=== PATIENT | female | born 1975 | race Two or more races ===

== ENCOUNTER 2024-12-25 05:02 | Inpatient (IN) | payer OTHER ==
[~2024-12-25] VITALS: Ht 157.5 cm; Wt 76.0 kg
--- NOTE | 2024-12-25 07:02 | ED.PDOC ---
History of Present Illness HPI Comments 49-year-old female presents to the ER with the chief complaint of abdominal pain. Patient reports on sleeping at 0000 last night which she had a sudden onset of severe constant epigastric pain which radiates to the back associated with nausea and vomiting. Denies any other symptoms at this time. Denies ch ills, fever, /D, SOB, CP. No other associated symptoms, modifiers, recent injuries or sick contacts present at this time. Chief Complaint: Abdominal Pain Time Seen by MD: 07:00 Reviewed Notes: Nurses Notes, Medications, Allergies Allergies: Coded Allergies: NO KNOWN ALLERGIES (Unverified , 12/25/24) Information Source: Patient Mode of Arrival: Ambulatory Severity: Moderate Timing: Hours Duration: Since onset, Hours Prehospital treatment: None Past Medical History PAST MEDICAL HISTORY: Denies Surgical History: Denies all surgeries VOCATIONAL PSYCHOLOGIST History: No Pertinent VOCATIONAL PSYCHOLOGIST History Family History Family History: Reviewed,noncontributory to illness, Unknown Social History Smoker: Non-Smoker Alcohol: Denies ETOH Use Drugs: Denies Drug Use Lives In: Home Constitutional: denies: chills, diaphoresis, fatigue, fever, malaise, sweats, weakness, others EENTM: denies: blurred vision, double vision, ear bleeding, ear discharge, ear drainage, ear pain, ear ringing, eye pain, eye redness, hearing loss, mouth pain, mouth swelling, nasal discharge, nose bleeding, nose congestion, nose pain, photophobia, tearing, throat pain, throat swelling, voice changes, others Respiratory: denies: cough, hemoptysis, orthopnea, SOB at rest, shortness of breath, SOB with excertion, stridor, wheezing, others Cardiovascular: denies: chest pain, dizzy spells, diaphoresis, Dyspnea on exertion, edema, irregular heart beat, left arm pain, lightheadedness, palpitations, PND, syncope, others Gastrointestinal: reports: abdominal pain (Epigastric), nausea, vomiting; denies: abdomen distended, blood streaked bowels, constipated, diarrhea, dysphagia, difficulty swallowing, hematemesis, melena, poor appetite, poor fluid intake, rectal bleeding, rectal pain, others Genitourinary: denies: abnormal vagina bleeding, burning, dyspareunia, dysuria, flank pain, frequency, hematuria, incontinence, pain, , vagina discharge, urgency, others Neurological: denies: dizziness, fainting, headache, left sided numbness, left sided weakness, numbness, paresthesia, pre-existing deficit, right sided numbness, right sided weakness, seizure, speech problems, tingling, tremors, weakness, others Musculoskeletal: denies: back pain, gout, joint pain, joint swelling, muscle pain, muscle stiffness, neck pain, others Integumetry: denies: bruises, change in color, change in hair/nails, dryness, laceration, lesions, lumps, rash, wounds, others Allergic/Immunocompromised: denies: Difficulty Healing, Frequent Infections, Hives, Itching, others Hematologic/Lymphatic: denies: anemia, blood clots, easy bleeding, easy bru ising, swollen glands, others Endocrine: denies: excessive hunger, excessive sweating, excessive thirst, e xcessive urination, flushing, intolerance to cold, intolerance to heat, unexplained weight gain, unexplained weight loss, others Psychiatric: denies: anxiety, bipolar disorder, depression, hopeless, panic disorder, schizophrenia, sleepless, suicidal, others All Other Systems: Reviewed and Negative Physical Exam General Appearance: Moderate Distress, Normal HEENT: Normal ENT Inspection, Pharynx Normal, TMs Normal Neck: Full Range of Motion, Non-Tender, Normal, Normal Inspection Respiratory: Chest Non-Tender, Lungs Clear, No Accessory Muscle Use, No Respiratory Distress, Normal Breath Sounds Cardiovascular: No Edema, No JVD, No Murmur, No Gallop, Normal Peripheral Pulses, Regular Rate/Rhythm Breast Exam: Deferred Gastrointestinal: No Organomegaly, Non Tender, No Pulsatile Mass, Normal Bowel Sounds, Soft Genitalia: Deferred Pelvic: Deferred Rectal: Deferred Extremities: No calf tenderness, Normal capillary refill, Normal inspection, Normal range of motion, Non-tender, No pedal edema Musculoskeletal : Apperance: Normal Neurologic: Alert, clinical pharmacist II-XII nml as Tested, No Motor Deficits, Normal Affect, Normal Mood, No Sensory Deficits Cerebellar Function: Normal Reflexes: Normal Skin: Dry, Normal Color, Warm Peripheral Pulses: 3+ Radial (R), 3+ Radial (L) Lymphatic: No Adenopathy Was a procedure done? Was a procedure done?: No Differential Dx Considerations may include: Anemia Electrolyte imbalance X-Ray, Labs, Meds, VS Vital Signs Date Time Temp Pulse Resp B/P (MAP) Pulse Ox O2 Delivery O2 Flow Rate FiO2 12/25/24 06:38 Room Air* 0 21 12/25/24 06:36 98.3 67 16 157/85 (109) 97 98.3 12/25/24 05:06 97.4 67 16 163/102 96 97.4 Lab Test 12/25/24 07:00 12/25/24 06:43 Range/Units White Blood Count 15.1 H 4.4-10.8 10^3/uL Red Blood Count 5.61 H 4.0-5.20 10^6/uL Hemoglobin 17.6 H 12.2-16.2 g/dL Hematocrit 52.4 H 36.0-46.0 % Mean Corpuscular Volume 93.5 80.0-100.0 fL Mean Corpuscular Hemoglobin 31.4 28.0-32.0 pg Mean Corpuscular Hemoglobin Concent 33.6 32.0-36.0 g/dL Red Cell Distribution Width 13.4 11.8-14.3 % Platelet Count 380 140-450 10^3/uL Mean Platelet Volume 6.9 6.9-10.8 fL Neutrophils (%) (Auto) 87.3 H 37.0-80.0 % Lymphocytes (%) (Auto) 8.9 L 10.0-50.0 % Monocytes (%) (Auto) 3.6 0.0-12.0 % Eosinophils (%) (Auto) 0.0 0.0-7.0 % Basophils (%) (Auto) 0.2 0.0-2.0 % Neutrophils # (Auto) 13.1 H 1.6-8.6 10 ^3/uL Lymphocytes # (Auto) 1.3 0.4-5.4 10 ^3/uL Monocytes # (Auto) 0.5 0-1.3 10 ^3/uL Eosinophils # (Auto) 0 0-0.8 10 ^3/uL Basophils # (Auto) 0 0-0.2 10 ^3/uL Nucleated Red Blood Cells 0.1 % Sodium Level 140 136-145 mmol/L Potassium Level 4.3 3.5-5.1 mmol/L Chloride Level 106 98-107 mmol/L Carbon Dioxide Level 23 20-31 mmol/L Anion Gap 11 5-15 Blood Urea Nitrogen 5 L 9-23 mg/dL Creatinine 0.96 0.550-1.02 mg/dL Glomerular Filtration Rate Calc 73 >90 mL/min BUN/Creatinine Ratio 5.2 L 10.0-20.0 Serum Glucose 123 H 74-106 mg/dL Calcium Level 10.3 8.7-10.4 mg/dL Urine Color Pending Urine Clarity Pending Urine pH Pending Urine Specific [place] Pending Urine Protein Pending Urine Ketones Pending Urine Blood Pending Urine Nitrite Pending Urine Bilirubin Pending Urine Urobilinogen Pending Urine Leukocyte Esterase Pending Urine RBC Pending Urine Microscopic WBC Pending Urine Squamous Epithelial Cells Pending Urine Bacteria Pending Urine Glucose Pending Patient alert. Came in because of abdominal discomfort. Vitals stable. Answering questions. WBC elevated. Abdomen is soft nontender. Establish intravenous access. Was given fluids. Possible sepsis. Blood culture. Lactic acid level. Explained to the patient. Continue monitoring. Time of 1ST Reevaluation: 07:30 Reevaluation 1ST: Unchanged Patient Education/Counseling: Diagnosis, Treatment, Prognosis Family Education/Counseling: No Family Present SEPSIS Sepsis Screen Date sepsis recognized/suspect: Dec 25, 2024 Time Sepsis recognized/suspect: 050 Recent Procedure: No On Antibiotic Therapy: No Respiratory Rate >20: No Heart Rate >90: No Temp<36 C (96.8 F) or >38.3 C: No SBP <90 or MAP <65 mmHG: No New Acute Mental Status Change: No Is the patient on CPAP, BIPAP,: No Physician Orders Urinalysis (12/25/24 06:43) Vital Signs Date Time Temp Pulse Resp B/P (MAP) Pulse Ox O2 Delivery O2 Flow Rate FiO2 12/25/24 06:38 Room Air* 0 21 12/25/24 06:36 98.3 67 16 157/85 (109) 97 98.3 12/25/24 05:06 97.4 67 16 163/102 96 97.4 Laboratory Tests Test 12/25/24 07:00 White Blood Count 15.1 10^3/uL (4.4-10.8) H Departure 1 Departure Time of Disposition: 07:42 Impression: Primary Impression: Sepsis, unspecified organism Qualified Codes: A41.9 - Sepsis, unspecified organism Disposition: ADMITTED INPATIENT Admit to: Med Surg Condition: Guarded Critical Care Note Critical Care Time?: Yes (90 min-critical care time only) Stability Stability form required: No Heart Score Heart Score: Heart Score Response (Comments) Value History N/A 0 EKG N/A 0 Age N/A 0 Risk Factors N/A 0 Troponin N/A 0 Total 0 I personally scribed for REJI MATHEW MD ([email or web address]) on 12/25/24 at 07:02. Electronically submitted by Kayode Hilario ([email or web address]). REJI MATHEW MD Dec 25, 2024 07:02
[2024-12-25 07:24] LABS: Hematocrit 52.4 % (36.0-46.0); Hemoglobin 17.6 g/dL (12.2-16.2); Mean Corpuscular Hemoglobin 31.4 pg (28.0-32.0); Mean Corpuscular Volume 93.5 fL (80.0-100.0); Nucleated Red Blood Cells % 0.1 %
[2024-12-25 07:30] LABS: Chloride 106 mmol/L (98-107); Potassium 4.3 mmol/L (3.5-5.1); Sodium 140 mmol/L (136-145)
[2024-12-25 07:31] LABS: Anion Gap 11 (5-15); Carbon Dioxide 23 mmol/L (20-31)
[2024-12-25 07:32] LABS: Calcium 10.3 mg/dL (8.7-10.4)
[2024-12-25 07:37] LABS: BUN/Creatinine Ratio 5.2 (10.0-20.0); Blood Urea Nitrogen 5 mg/dL (9-23); Glucose 123 mg/dL (74-106)
[2024-12-25] MEDS: SODIUM CHLORIDE 0.9% 1,000 ML IV ONE ×2 (07:45→08:30)
[2024-12-25 07:52] LABS: Urine Amorphous Crystal MOD /hpf (None Seen); Urine Protein, UAD 1+ (Negative)
--- NOTE | 2024-12-25 08:16 | DVH ---
Exam: CT CT AB PEL WO CON-NO ORAL OR IV History: colitis Comparison Study: None Technique: Multidetector spiral CT of the abdomen and pelvis was performed from lung bases to pubic s ymphysis. Imaging was performed without intravenous contrast. Coronal and sagittal multiplanar reform ats were obtained from the axial data set by the technologist. Radiation Dose : 1. Abdomen/Pelvis: CTDIvol 9.8 mGy, DLP 37.95 mGy*cm. Findings: Evaluation of vasculature and solid organs is limited due to lack of intravenous contrast use. Lung Bases: Lung bases are clear. Visualized portions of the heart and pericardium are unremarkable. Liver: The liver is normal in size. No focal lesions. Diffusely hypoattenuating liver parenchyma con sistent with hepatic steatosis. Gallbladder and Biliary Tree: Gallstone noted. No intrahepatic or extrahepatic biliary ductal dilata tion. Spleen: Unremarkable Pancreas: The pancreas is grossly unremarkable. Adrenal Glands: Unremarkable Kidneys: There is a 6 mm nonobstructive calculus in the lower pole of the right kidney. Punctate non obstructive left renal calculus. GI tract: The stomach is grossly normal in appearance. No evidence of small bowel wall thickening or abnormal dilatation to suggest bowel obstruction. The colon is unremarkable. The appendix is not visu alized, however no inflammatory changes in the right lower quadrant to suggest acute appendicitis. Peritoneum/mesentery/retroperitoneum. No evidence of free intraperitoneal air. No ascites. No evidenc e of suspicious lymphadenopathy. Abdominal Wall: Unremarkable. Vasculature: The visualized abdominal aorta is normal in size and caliber. Evaluation of abdominal a nd pelvic vessels is limited due to lack of intravenous contrast. Urinary Bladder: Grossly unremarkable for degree of distention. Pelvic Organs: Intrauterine device is appropriately positioned Musculoskeletal: No fracture. There is sclerosis in the right T10 pedicle of uncertain etiology. IMPRESSION: 1. No acute abdominal or pelvic findings. 2. Nonobstructive bilateral renal calculi. 3. Cholelithiasis. 4. Hepatic steatosis. 5. Sclerosis in the right T10 pedicle. Etiology is uncertain. This is not dense enough to be consid ered a bone island. A nuclear medicine bone scan may be obtained for further evaluation.
[2024-12-25] MEDS: PIPERACILLIN-TAZOB 3.375GM 100 ML IV ONE ×2 (08:31→10:02)
[2024-12-25] MEDS: ONDANSETRON HCL 4 MG/2 ML VIAL IV ONE (09:13)
[2024-12-25] MEDS: HYDROmorphone HCL 2 MG/ML VL/or syr IV ONE (09:13)
--- NOTE | 2024-12-25 09:41 | DVHHP2 ---
History of Present Illness Reason for Visit: Abdominal pain with nausea and vomiting History of Present Illness Izabel Matthews is a 49-year-old female with past medical history of epilepsy who presents to the ED with abdominal pain with nausea and vomiting, with complaints radiating to the back, reports that the pain is 8/10 dull and constant. She reports that she vomited multiple times with minimal relief, food contents and now yellow in color. Patient reports that she vomited over 10 times. Patient's [id number] Carmen at the bedside. Patient denies any recent trauma or injury, recent sick contacts, recent travels, recent ingestion of spoiled food, chest pain, shortness of breath, fever, chills, lightheadedness, weakness, dizziness, diarrhea, urinary symptoms. Patient will be admitted for rule out sepsis and pain management with IV pain medications. 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) Past Medical History Nephrolithiasis Past Surgical History: Other (D&C and lithotripsy ) Family History: Cancer, Other (Mom with diabetes and liver cancer.) Smoke: No ALCOHOL: none Drugs: None Lives: with Family Domestic Violence: Neg Review of Systems Gastrointestinal: Nausea, Vomiting, Abdominal Pain Allergies: Coded Allergies: NO KNOWN ALLERGIES (Unverified , 12/25/24) Exam Vital Signs Vital Signs Date Time Temp Pulse Resp B/P (MAP) Pulse Ox O2 Delivery O2 Flow Rate FiO2 12/25/24 09:13 61 16 156/74 12/25/24 08:26 98.0 98 98.0 12/25/24 06:38 Room Air* 0 21 General Appearance: Alert, Oriented X3, Cooperative, No acute distress HEENT: Atraumatic, PERRLA, EOMI, Mucous membr. moist/pink Respiratory: Clear to auscultation, Normal air movement Cardiovascular: Regular rate, Normal S1, Normal S2, No murmurs Abdominal: Normal bowel sounds, Soft Extremities: No clubbing, No cyanosis, Normal pulses Skin: No significant lesion Neuro: Normal gait, Normal speech, Strength at 5/5 X4 ext, Normal tone, Sensation intact Psych/Mental Status: Mental status NL, Mood NL Labs/Xrays Labs Test 12/25/24 07:00 12/25/24 06:43 Range/Units White Blood Count 15.1 H 4.4-10.8 10^3/uL Red Blood Count 5.61 H 4.0-5.20 10^6/uL Hemoglobin 17.6 H 12.2-16.2 g/dL Hematocrit 52.4 H 36.0-46.0 % Mean Corpuscular Volume 93.5 80.0-100.0 fL Mean Corpuscular Hemoglobin 31.4 28.0-32.0 pg Mean Corpuscular Hemoglobin Concent 33.6 32.0-36.0 g/dL Red Cell Distribution Width 13.4 11.8-14.3 % Platelet Count 380 140-450 10^3/uL Mean Platelet Volume 6.9 6.9-10.8 fL Neutrophils (%) (Auto) 87.3 H 37.0-80.0 % Lymphocytes (%) (Auto) 8.9 L 10.0-50.0 % Monocytes (%) (Auto) 3.6 0.0-12.0 % Eosinophils (%) (Auto) 0.0 0.0-7.0 % Basophils (%) (Auto) 0.2 0.0-2.0 % Neutrophils # (Auto) 13.1 H 1.6-8.6 10 ^3/uL Lymphocytes # (Auto) 1.3 0.4-5.4 10 ^3/uL Monocytes # (Auto) 0.5 0-1.3 10 ^3/uL Eosinophils # (Auto) 0 0-0.8 10 ^3/uL Basophils # (Auto) 0 0-0.2 10 ^3/uL Nucleated Red Blood Cells 0.1 % Sodium Level 140 136-145 mmol/L Potassium Level 4.3 3.5-5.1 mmol/L Chloride Level 106 98-107 mmol/L Carbon Dioxide Level 23 20-31 mmol/L Anion Gap 11 5-15 Blood Urea Nitrogen 5 L 9-23 mg/dL Creatinine 0.96 0.550-1.02 mg/dL Glomerular Filtration Rate Calc 73 >90 mL/min BUN/Creatinine Ratio 5.2 L 10.0-20.0 Serum Glucose 123 H 74-106 mg/dL Calcium Level 10.3 8.7-10.4 mg/dL Urine Color Light-brown Yellow Urine Clarity Ex.turbid Clear Urine pH 8.0 5.0-9.0 Urine Specific [place] 1.020 1.001-1.035 Urine Protein 1+ H Negative Urine Ketones Negative Negative Urine Blood 1+ H Negative /uL Urine Nitrite Negative Negative Urine Bilirubin Negative Negative Urine Urobilinogen 2 H Negative mg/dL Urine Leukocyte Esterase Negative Negative /uL Urine RBC 13 0 - 4 /hpf Urine Microscopic WBC 2 0-5 /HPF Urine Squamous Epithelial Cells None seen <5 /hpf Urine Amorphous Crystals Mod None Seen /hpf Urine Bacteria None seen None Seen /hpf Urine Mucus Few None Seen Urine Glucose Normal Normal mg/dL Exam: CT CT AB PEL WO CON-NO ORAL OR IV History: colitis Comparison Study: None Technique: Multidetector spiral CT of the abdomen and pelvis was performed from lung bases to pubic symphysis. Imaging was performed without intravenous contrast. Coronal and sagittal multiplanar reformats were obtained from the axial data set by the technologist. Radiation Dose : 1. Abdomen/Pelvis: CTDIvol 9.8 mGy, DLP 37.95 mGy*cm. Findings: Evaluation of vasculature and solid organs is limited due to lack of intravenous contrast use. Lung Bases: Lung bases are clear. Visualized portions of the heart and pericardium are unremarkable. Liver: The liver is normal in size. No focal lesions. Diffusely hypoattenuating liver parenchyma consistent with hepatic steatosis. Gallbladder and Biliary Tree: Gallstone noted. No intrahepatic or extrahepatic biliary ductal dilatation. Spleen: Unremarkable Pancreas: The pancreas is grossly unremarkable. Adrenal Glands: Unremarkable Kidneys: There is a 6 mm nonobstructive calculus in the lower pole of the right kidney. Punctate nonobstructive left renal calculus. GI tract: The stomach is grossly normal in appearance. No evidence of small renan l wall thickening or abnormal dilatation to suggest bowel obstruction. The colon is unremarkable. The appendix is not visualized, however no inflammatory changes in the right lower quadrant to suggest acute appendicitis. Peritoneum/mesentery/retroperitoneum. No evidence of free intraperitoneal air. No ascites. No evidence of suspicious lymphadenopathy. Abdominal Wall: Unremarkable. Vasculature: The visualized abdominal aorta is normal in size and caliber. Evaluation of abdominal and pelvic vessels is limited due to lack of intravenous contrast. Urinary Bladder: Grossly unremarkable for degree of distention. Pelvic Organs: Intrauterine device is appropriately positioned Musculoskeletal: No fracture. There is sclerosis in the right T10 pedicle of uncertain etiology. IMPRESSION: 1. No acute abdominal or pelvic findings. 2. Nonobstructive bilateral renal calculi. 3. Cholelithiasis. 4. Hepatic steatosis. 5. Sclerosis in the right T10 pedicle. Etiology is uncertain. This is not dense enough to be considered a bone island. A nuclear medicine bone scan may be obtained for further evaluation. SEPSIS Sepsis Screen Date sepsis recognized/suspect: Dec 25, 2024 Time Sepsis recognized/suspect: 0508 Recent Procedure: No On Antibiotic Therapy: No Respiratory Rate >20: No Heart Rate >90: No Temp<36 C (96.8 F) or >38.3 C: No SBP <90 or MAP <65 mmHG: No New Acute Mental Status Change: No Is the patient on CPAP, BIPAP,: No Physician Orders Ct Ab Pel Wo Con-No Oral Or Iv (12/25/24 07:43) Sodium Chloride 0.9% (12/25/24 07:45) Vital Signs Date Time Temp Pulse Resp B/P (MAP) Pulse Ox O2 Delivery O2 Flow Rate FiO2 12/25/24 09:13 61 16 156/74 12/25/24 08:27 156/74 12/25/24 08:26 98.0 61 16 156/74 (101) 98 98.0 12/25/24 06:38 Room Air* 0 21 12/25/24 06:36 98.3 67 16 157/85 (109) 97 98.3 12/25/24 05:06 97.4 67 16 163/102 96 97.4 Laboratory Tests Test 12/25/24 07:00 White Blood Count 15.1 10^3/uL (4.4-10.8) H Medications Medications Dose Ordered Sig/Sacha Route Start Time Stop Time Status Last Admin Dose Admin Hydromorphone HCl 1 mg ONCE ONCE IV 12/25/24 08:45 12/25/24 08:46 DC 12/25/24 09:13 1 MG Metronidazole 100 ml @ 100 mls/hr ONCE ONCE IV 12/25/24 07:45 12/25/24 08:44 DC 12/25/24 08:31 100 MLS/HR Ondansetron HCl 4 mg ONCE ONCE IV 12/25/24 08:45 12/25/24 08:46 DC 12/25/24 09:13 4 MG Piperacillin Sod/ Tazobactam Sod 100 ml @ 100 mls/hr ONCE ONCE IV 12/25/24 07:45 12/25/24 08:44 DC 12/25/24 08:31 100 MLS/HR Sodium Chloride 1,000 ml @ 1,000 mls/hr Q1H ONCE IV 12/25/24 07:45 12/25/24 08:44 DC 12/25/24 08:30 1,000 MLS/HR Assessment/Plan Assessment/Plan Assessment/plan Intractable abdominal pain with nausea and vomiting Leukocytosis unclear etiology Rule out sepsis - IV antibiotics Flagyl + Zosyn given in ED - IV antibiotics-Zosyn -NS 2 L given ED -UA -Antiemetics -Pain management -CT abdomen and pelvis noted -blood cultures -lactic -urine cultures -lipase -LFTs -T bili -IVF History of epilepsy -continue home medications, Keppra and zonisamide Diet Home medications reconciled DVT and PUD prophylaxis Discussed plan of care with patient and nurse [id number] Advanced care planning discussed [id number] Behavior change smoking greater than 10 minutes about use of other options also gave option of nicotine patch [id number] Preventive counseling healthy eating habits, physical activity, and regular checkups Plan discussed with: Patient Date of Service: Dec 25, 2024 Billing Provider: MAXIMO CRUZ Common Visit Codes: 93140-BOEZYRM INP/OBS CARE (HIGH) Secondary Visit Codes: 21020-[id number] COUNSELING IND MAXIMO CRUZ Dec 25, 2024 09:41
[2024-12-25 10:51] LABS: Alanine Aminotransferase 19 U/L (7-40)
[2024-12-25 10:55] LABS: Alkaline Phosphatase 117 U/L (46-116); Lipase 55 U/L (12-53)
[2024-12-25 11:05] VITALS: BP 125/78; PULSE 60; PULSE 73; RESP 18; TEMP 97.1; O2SAT 96; O2SAT 99
[2024-12-25] MEDS ORDERED: ZONI100C43 PO (12:16)
[2024-12-25] MEDS ORDERED: KEP500T PO (12:16)
[2024-12-25] MEDS: ONDANSETRON HCL 4 MG/2 ML VIAL IV PRN (12:52)
[2024-12-25 12:56] VITALS: BP 127/79; PULSE 73; RESP 18; TEMP 97; O2SAT 99
[2024-12-25] MEDS: HYDROcodone-ACET 5/325MG TAB PO PRN (15:58)
[2024-12-25 17:30] VITALS: BP 156/66; PULSE 69; RESP 18; TEMP 97; O2SAT 98
[2024-12-25] MEDS: MORPHINE SULFATE INJ 2 MG/ml SYRG IV PRN (18:56)
[2024-12-25] MEDS: SODIUM CHLORIDE 0.9% 1,000 ML IV SCH (19:00)
[2024-12-25 20:00] VITALS: PULSE 79; RESP 17; O2SAT 97
[2024-12-25 21:00] VITALS: BP 129/81; PULSE 79; RESP 18; TEMP 99.2; O2SAT 97
[2024-12-25] MEDS: levETIRAcetam 500 MG TAB PO SCH (21:21)
[2024-12-26] VITALS (8 sets, daily range): BP systolic 94–124; BP diastolic 48–69; PULSE 66–87; RESP 16–18; TEMP 97.4–98.6; O2SAT 95–97
[2024-12-26 06:00] LABS: Hematocrit 43.5 % (36.0-46.0); Hemoglobin 14.8 g/dL (12.2-16.2); Mean Corpuscular Hemoglobin 31.2 pg (28.0-32.0); Mean Corpuscular Volume 92.1 fL (80.0-100.0); Nucleated Red Blood Cells % 0.1 %
[2024-12-26 06:19] LABS: Alanine Aminotransferase 22 U/L (7-40); Alkaline Phosphatase 107 U/L (46-116); Anion Gap 10 (5-15); Carbon Dioxide 21 mmol/L (20-31); Glucose 87 mg/dL (74-106); Sodium 138 mmol/L (136-145); Total Protein 6.4 g/dL (5.7-8.2)
[2024-12-26 06:20] LABS: Albumin 3.6 g/dL (3.2-4.8); Bilirubin, Total 0.8 mg/dL (0.2-1.0)
[2024-12-26 06:24] LABS: Chloride 107 mmol/L (98-107); Potassium 3.4 mmol/L (3.5-5.1)
[2024-12-26 06:25] LABS: BUN/Creatinine Ratio 6.8 (10.0-20.0); Blood Urea Nitrogen < 5 mg/dL (9-23); Calcium 8.5 mg/dL (8.7-10.4)
[2024-12-26] MEDS: SODIUM CHLORIDE 0.9% 500 ML IV ONE (14:15)
--- NOTE | 2024-12-26 16:48 | ECG ---
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
[2024-12-26] MEDS: PANTOPRAZOLE 40 MG/10 ML VIAL INJ IV ONE (17:04)
[2024-12-26] MEDS: MORPHINE SULFATE INJ 2 MG/ml SYRG IV PRN (17:05)
[2024-12-26] MEDS: SUCRALFATE 1 GM/10 ML ORAL SUSP PO SCH (21:39)
[2024-12-27] VITALS (7 sets, daily range): BP systolic 88–124; BP diastolic 52–66; PULSE 50–87; RESP 16–17; TEMP 97–98.3; O2SAT 95–98
[2024-12-27 06:21] LABS: Alanine Aminotransferase 17 U/L (7-40); Albumin 3.7 g/dL (3.2-4.8); Alkaline Phosphatase 99 U/L (46-116); Anion Gap 9 (5-15); BUN/Creatinine Ratio 9.5 (10.0-20.0); Calcium 9.1 mg/dL (8.7-10.4); Carbon Dioxide 22 mmol/L (20-31); Glucose 79 mg/dL (74-106); Sodium 139 mmol/L (136-145); Total Protein 6.5 g/dL (5.7-8.2)
[2024-12-27 06:22] LABS: Bilirubin, Total 0.4 mg/dL (0.2-1.0)
[2024-12-27 06:26] LABS: Blood Urea Nitrogen 7 mg/dL (9-23); Chloride 108 mmol/L (98-107); Potassium 3.5 mmol/L (3.5-5.1)
[2024-12-27 06:31] LABS: Hematocrit 42.9 % (36.0-46.0); Hemoglobin 14.5 g/dL (12.2-16.2); Mean Corpuscular Hemoglobin 31.0 pg (28.0-32.0); Mean Corpuscular Volume 91.7 fL (80.0-100.0); Nucleated Red Blood Cells % 0.1 %
[2024-12-27] MEDS: KETOROLAC TROMETH 30 MG/ML 1ML VIAL IV PRN (08:38)
[2024-12-27] MEDS: SODIUM CHLORIDE 0.9% 500 ML IV ONE (08:38)
[2024-12-27] MEDS: PANTOPRAZOLE 40 MG/10 ML VIAL INJ IV SCH (10:49)
--- NOTE | 2024-12-27 11:03 | DVH ---
Date: 12/27/2024 10:29 AM Examination: XY KUB ABDOMEN SINGLE VIEW History: Abdominal pain, upright KUB, portable, Comparison: None TECHNIQUE: Frontal views of the abdomen was obtained. FINDINGS: Bowel gas pattern is unremarkable. The lung bases are unremarkable. No acute osseous abnormality identified. IMPRESSION: Nonobstructive bowel gas pattern. Large stool burden.
--- NOTE | 2024-12-27 11:15 | DVHPN2 ---
Reviewed: H&P Changes from previous H/P or p: No Changes General: Per HPI Gastrointestinal: Nausea, Vomiting, Abdominal Pain Objective Vitals Vital Signs Date Time Temp Pulse Resp B/P (MAP) Pulse Ox O2 Delivery O2 Flow Rate FiO2 12/26/24 13:18 97.4 69 18 107/57 (74) 95 97.4 12/26/24 08:00 Room Air* 0 21 Intake/Output Intake and Output 12/26/24 07:00 Intake Total 590 ml Balance 590 ml Intake Oral 590 ml # Voids 3 Exam GEN: Healthy appearing, well-developed, NAD. HEENT: NC/AT; MMM. CV: RRR, no m/r/g. LUNGS: CTAB, no w/r/c. ABD: Epigastrium tender to palpation, normoactive bowel sounds, EXT: skin Warm, well perfused. no rashes. No clubbing, cyanosis, or edema. NEURO: Ambulating with no limitations. No focal deficits. Medications Current Medications Medications Dose Ordered Sig/Sacha Route Start Time Stop Time Status Last Admin Dose Admin Sodium Chloride 1,000 ml @ 60 mls/hr [id number] IV 12/25/24 09:45 12/25/24 19:00 60 MLS/HR Acetaminophen/ Hydrocodone Bitart 1 tab Q4HP PRN PO 12/25/24 09:45 12/26/24 09:44 1 TAB Ondansetron HCl 4 mg Q4HP PRN IV 12/25/24 09:45 12/25/24 23:55 4 MG Acetaminophen 650 mg Q6HP PRN PO 12/25/24 09:45 Morphine Sulfate 2 mg Q4HPRN PRN IV 12/25/24 09:45 12/25/24 23:55 2 MG Levetiracetam 2,000 mg HS PO 12/25/24 22:00 12/25/24 21:21 2,000 MG Patient Own Medication 200 mg HS PO 12/25/24 22:00 12/25/24 21:24 200 MG Ceftriaxone Sodium 50 ml @ 100 mls/hr DAILY@09 IV 12/26/24 12:00 12/26/24 12:28 100 MLS/HR Metronidazole 100 ml @ 100 mls/hr Q8HR IV 12/26/24 14:00 Laboratory Results Laboratory Tests 12/26/24 05:20 Chemistry Test 12/26/24 05:20 Albumin 3.6 g/dL (3.2-4.8) Calcium Level 8.5 mg/dL (8.7-10.4) L Total Protein 6.4 g/dL (5.7-8.2) LFT Test 12/26/24 05:20 Alanine Aminotransferase (ALT) 22 U/L (7-40) Alkaline Phosphatase 107 U/L (46-116) Aspartate Amino Transferase (AST) 24 U/L (13-40) Total Bilirubin 0.8 mg/dL (0.2-1.0) Urinalysis Test 12/25/24 06:43 Urine Color Light-brown (Yellow) Urine Clarity Ex.turbid (Clear) Urine pH 8.0 (5.0-9.0) Urine Specific [place] 1.020 (1.001-1.035) Urine Protein 1+ (Negative) H Urine Ketones Negative (Negative) Urine Blood 1+ /uL (Negative) H Urine Nitrite Negative (Negative) Urine Bilirubin Negative (Negative) Urine Urobilinogen 2 mg/dL (Negative) H Urine Leukocyte Esterase Negative /uL (Negative) Urine RBC 13 /hpf (0 - 4) Urine Microscopic WBC 2 /HPF (0-5) Urine Squamous Epithelial Cells None seen /hpf (<5) Urine Amorphous Crystals Mod /hpf (None Seen) Urine Bacteria None seen /hpf (None Seen) Urine Mucus Few (None Seen) Urine Glucose Normal mg/dL (Normal) Microbiology Microbiology Date/Time Source Procedure Growth Status 12/25/24 09:50 Blood Blood Culture - Preliminary NO GROWTH AFTER 24 HOURS OF INCUBATION. Resulted 12/25/24 06:43 Voided Urine Urine Culture - Preliminary Resulted Labs and/or images reviewed: Labs reviewed by me, Image(s) reviewed by me Assessment/Plan Assessment/Plan 12/26: Patient has started having abdominal pain then started having nausea and vomiting, there was no diarrhea. Later the pain also started radiating to the back. Patient's lipase is mildly elevated. She does not take any weight loss pills,. CT was done showing cholelithiasis some nonobstructive nephrolithiasis, but no other acute processes, hepatic steatosis. Patient also had leukocytosis with left shift neutrophilia. We will start patient on ceftriaxone Flagyl for considerable possible gastroenteritis. Start Protonix IV 40, with Carafate 1 gram b.i.d.,. Continue slow IV fluids. Blood pressure low but apparently this is chronic. We will try fluid bolus. Otherwise continue antiemetics and prn pain medications, avoiding any NSAIDs., for pain we are doing Tylenol, [place], morphine, avoiding Toradol for possible PUD.. Urine . Full liquid diet. EKG. Diagnosis: Gastroenteritis, infectious etiology likely Acute gastritis PUD possible Intractable abdominal pain with nausea and vomiting Leukocytosis unclear etiology Rule out sepsis History of epilepsy Plan: For pain use Tylenol, [place], morphine Slow IV fluids after bolus Start Protonix IV 40 mg daily Carafate suspension 1 g p.o. twice daily b.i.d. Continue other home medications Urine EKG Med surge Full code Plan discussed with: Patient My Orders Orders - LEVY HOOVER MD Procedure Category Date Status Time Ceftriaxone 1gm/50ml PHA 12/26/24 In Process (Rocephin) 12:00 Metronidazole PHA 12/26/24 In Process 500mg/100ml (Flagyl 14:00 Date of Service: Dec 26, 2024 Billing Provider: LEVY HOOVER MD Common Visit Codes: [id number] INP/OBS CARE(HIGH) LEVY HOOVER MD Dec 26, 2024 14:15
--- NOTE | 2024-12-27 11:43 | DVHPN2 ---
Reviewed: H&P Changes from previous H/P or p: No Changes General: Per HPI Gastrointestinal: Nausea, Vomiting, Abdominal Pain Objective Vitals Vital Signs Date Time Temp Pulse Resp B/P (MAP) Pulse Ox O2 Delivery O2 Flow Rate FiO2 12/27/24 08:36 97.0 50 17 88/54 (65) 95 97.0 12/27/24 08:00 Room Air* 0 21 Intake/Output Intake and Output 12/27/24 07:00 Intake Total 3150 ml Balance 3150 ml Intake Oral 1400 ml IV Total 1750 ml # Voids 4 Exam GEN: Healthy appearing, well-developed, NAD. HEENT: NC/AT; MMM. CV: RRR, no m/r/g. LUNGS: CTAB, no w/r/c. ABD: Epigastrium tender to palpation, normoactive bowel sounds, EXT: skin Warm, well perfused. no rashes. No clubbing, cyanosis, or edema. NEURO: Ambulating with no limitations. No focal deficits. Medications Current Medications Medications Dose Ordered Sig/Sacha Route Start Time Stop Time Status Last Admin Dose Admin Sodium Chloride 1,000 ml @ 60 mls/hr [id number] IV 12/25/24 09:45 12/26/24 19:05 60 MLS/HR Acetaminophen/ Hydrocodone Bitart 1 tab Q4HP PRN PO 12/25/24 09:45 12/27/24 03:29 1 TAB Ondansetron HCl 4 mg Q4HP PRN IV 12/25/24 09:45 12/26/24 21:45 4 MG Acetaminophen 650 mg Q6HP PRN PO 12/25/24 09:45 Levetiracetam 2,000 mg HS PO 12/25/24 22:00 12/26/24 21:40 2,000 MG Ceftriaxone Sodium 50 ml @ 100 mls/hr DAILY@09 IV 12/26/24 12:00 12/26/24 12:28 100 MLS/HR Metronidazole 100 ml @ 100 mls/hr Q8HR IV 12/26/24 14:00 12/27/24 05:31 100 MLS/HR Patient Own Medication 200 mg HS PO 12/26/24 22:00 12/26/24 22:00 200 MG Pantoprazole Sodium 40 mg DAILY IV 12/27/24 10:00 Sucralfate 1 gm BID@0600,2200 PO 12/26/24 22:00 12/27/24 05:31 1 GM Ketorolac Tromethamine 15 mg Q6HPRN PRN IV 12/27/24 08:15 01/01/25 08:14 12/27/24 08:38 15 MG Laboratory Results Laboratory Tests 12/27/24 05:07 Chemistry Test 12/27/24 05:07 Albumin 3.7 g/dL (3.2-4.8) Calcium Level 9.1 mg/dL (8.7-10.4) Total Protein 6.5 g/dL (5.7-8.2) LFT Test 12/27/24 05:07 Alanine Aminotransferase (ALT) 17 U/L (7-40) Alkaline Phosphatase 99 U/L (46-116) Aspartate Amino Transferase (AST) 17 U/L (13-40) Total Bilirubin 0.4 mg/dL (0.2-1.0) Urinalysis Test 12/25/24 06:43 Urine Color Light-brown (Yellow) Urine Clarity Ex.turbid (Clear) Urine pH 8.0 (5.0-9.0) Urine Specific [place] 1.020 (1.001-1.035) Urine Protein 1+ (Negative) H Urine Ketones Negative (Negative) Urine Blood 1+ /uL (Negative) H Urine Nitrite Negative (Negative) Urine Bilirubin Negative (Negative) Urine Urobilinogen 2 mg/dL (Negative) H Urine Leukocyte Esterase Negative /uL (Negative) Urine RBC 13 /hpf (0 - 4) Urine Microscopic WBC 2 /HPF (0-5) Urine Squamous Epithelial Cells None seen /hpf (<5) Urine Amorphous Crystals Mod /hpf (None Seen) Urine Bacteria None seen /hpf (None Seen) Urine Mucus Few (None Seen) Urine Glucose Normal mg/dL (Normal) Microbiology Microbiology Date/Time Source Procedure Growth Status 12/25/24 09:50 Blood Blood Culture - Preliminary NO GROWTH AFTER 24 HOURS OF INCUBATION. Resulted 12/25/24 06:43 Voided Urine Urine Culture - Preliminary Resulted Labs and/or images reviewed: Labs reviewed by me, Image(s) reviewed by me Assessment/Plan Assessment/Plan 49-year-old female with past medical history of epilepsy who presents to the ED with abdominal pain with nausea and vomiting, with complaints radiating to the back, reports that the pain is 8/10 dull and constant. She reports that she vomited multiple times with minimal relief, food contents and now yellow in color. Patient reports that she vomited over 10 times. Patient's [id number] Carmen at the bedside. Patient denies any recent trauma or injury, recent sick contacts, recent travels, recent ingestion of spoiled food, chest pain, shortness of breath, fever, chills, lightheadedness, weakness, dizziness, diarrhea, urinary symptoms. 12/26: Patient has started having abdominal pain then started having nausea and vomiting, there was no diarrhea. Later the pain also started radiating to the back. Patient's lipase is mildly elevated. She does not take any weight loss pills,. CT was done showing cholelithiasis some nonobstructive nephrolithiasis, but no other acute processes, hepatic steatosis. Patient also had leukocytosis with left shift neutrophilia. We will start patient on ceftriaxone Flagyl for considerable possible gastroenteritis. Start Protonix IV 40, with Carafate 1 gram b.i.d.,. Continue slow IV fluids. Blood pressure low but apparently this is chronic. We will try fluid bolus. Otherwise continue antiemetics and prn pain medications, avoiding any NSAIDs., for pain we are doing Tylenol, [place], morphine, avoiding Toradol for possible PUD.. Urine . Full liquid diet. EKG. 12/27. EKG was unconcerning. Urine negative, awaiting Toradol still,. Continuing IV antibiotics, continuing Protonix and Carafate. Pain is 3/10 this morning. Pain still limited to epigastrium and right upper quadrant. No Melendrez's sign Melendrez sign negative. No guarding rigidity. We will get upright KUB, holding off GI consult at this point has pain is improving. Blood pressure low, starting midodrine 10 t.i.d., stat KUB portable, Diagnosis: Gastroenteritis, infectious etiology likely Acute gastritis PUD possible Intractable abdominal pain with nausea and vomiting Leukocytosis unclear etiology Rule out sepsis History of epilepsy Plan: For pain use Tylenol, [place], morphine Slow IV fluids after bolus Start Protonix IV 40 mg daily Carafate suspension 1 g p.o. twice daily b.i.d. Continue other home medications Urine EKG Med surge Full code Plan discussed with: Patient My Orders Orders - LEVY HOOVER MD Procedure Category Date Status Time Ceftriaxone 1gm/50ml PHA 12/26/24 In Process (Rocephin) 12:00 Metronidazole PHA 12/26/24 In Process 500mg/100ml (Flagyl 14:00 Pantoprazole PHA 12/27/24 In Process (Protonix) 10:00 Sucralfate Susp PHA 12/26/24 In Process (Carafate Susp) 22:00 Test, Urine LAB 12/26/24 Logged 14:12 Full Liq Diet DIET 12/26/24 Transmitted Dinner * Gi Dvh Lip Cutter CONS 12/27/24 Transmitted 08:11 Ketorolac Injection PHA 12/27/24 In Process (Toradol Injection) 08:15 Date of Service: Dec 27, 2024 Billing Provider: LEVY HOOVER MD Common Visit Codes: [id number] INP/OBS CARE(HIGH) LEVY HOOVER MD Dec 27, 2024 10:02
[2024-12-27] MEDS: VANCOMYCIN 1.25GM/250ML 250 ML IV ONE (11:54)
[2024-12-27] MEDS ORDERED: VANCOMYCIN PER PHARMACY 0 MG IV SCH (12:00)
[2024-12-27] MEDS: PIPERACILLIN-TAZOB 3.375GM 100 ML IV SCH (14:13)
[2024-12-27 14:59] LABS: Sodium 140 mmol/L (136-145)
[2024-12-27 15:00] LABS: Anion Gap 7 (5-15); Calcium 8.8 mg/dL (8.7-10.4); Carbon Dioxide 24 mmol/L (20-31)
[2024-12-27 15:05] LABS: BUN/Creatinine Ratio 9.0 (10.0-20.0)
[2024-12-27 15:06] LABS: Blood Urea Nitrogen 7 mg/dL (9-23); Chloride 109 mmol/L (98-107); Glucose 70 mg/dL (74-106); Potassium 3.2 mmol/L (3.5-5.1)
[2024-12-27] MEDS: POTASSIUM CHL 20 Meq TABLET PO ONE (17:38)
[2024-12-27] MEDS: MIDODRINE HCL 10 MG TAB PO SCH (17:39)
--- NOTE | 2024-12-27 19:01 | DVHINCON2 ---
Date of service: Dec 27, 2024 History of Present Illness 49 y/o F pt with no significant PMH admitted with abd pain, N/V. Reports having symptoms suddenly, and threw up multiple times. Denies any food triggers/sick contacts. She had abd pain prior, sx worse this time. Admits tp constipation, has BM every other day with staining. No diarrhea/GERD Past Medical History Reviewed Past Surgical History Reviewed Family History: FH: breast cancer FH: liver cancer Allergies: Coded Allergies: NO KNOWN ALLERGIES (Unverified , 12/25/24) Home Meds Reported Medications Zonisamide (Zonisamide) 100 Mg Cap, 200 MG PO HS, CAP 12/25/24 Levetiracetam (KEPPRA TABLET) 500 Mg Tb, 2000 MG PO HS, TAB 12/25/24 Current Medications Current Medications Medications (Trade) Dose Ordered Sig/Sacha Route PRN Reason Start Time Stop Time Status Last Admin Patient Own Medication 200 mg HS PO 12/26/24 22:00 12/26/24 22:00 Pantoprazole Sodium (Protonix) 40 mg DAILY IV 12/27/24 10:00 12/27/24 10:49 Sucralfate (Carafate Susp) 1 gm BID@0600,2200 PO 12/26/24 22:00 12/27/24 05:31 Ketorolac Tromethamine (Toradol Injection) 15 mg Q6HPRN PRN IV SEVERE PAIN (7-10 PAIN SCALE) 12/27/24 08:15 01/01/25 08:14 12/27/24 18:43 Vancomycin HCl 0 ml @ 0 mls/hr PER PHARMACY IV 12/27/24 12:00 Piperacillin Sod/ Tazobactam Sod 100 ml @ 25 mls/hr Q8HR IV 12/27/24 12:00 12/27/24 14:13 Diphenhydramine HCl (Benadryl Capsule) 50 mg Q6HP PRN PO FOR ITCHING 12/27/24 14:00 Midodrine (Proamatine Tablet) 10 mg TID@0600,1200,1800 PO 12/27/24 18:00 12/27/24 17:39 Vancomycin HCl 250 ml @ 200 mls/hr DAILY@1100,2300 IV 12/27/24 23:00 Review of Systems 14 point ROS negative except mentioned above Vital Signs Vital Signs Date Time Temp Pulse Resp B/P (MAP) Pulse Ox O2 Delivery O2 Flow Rate FiO2 12/27/24 17:00 97.0 58 17 124/66 (85) 95 97.0 12/27/24 08:00 Room Air* 0 21 Physical Exam PE: in no acute distress CVS: S1S2+ Lungs: clear Abdomen: soft, nondistended, nontender, BS+ Labs/Diagnostic Data Labs Test 12/27/24 14:10 12/27/24 11:50 12/27/24 05:07 12/25/24 09:50 Range/Units Sodium Level 140 136-145 mmol/L Potassium Level 3.2 L 3.5-5.1 mmol/L Chloride Level 109 H 98-107 mmol/L Carbon Dioxide Level 24 20-31 mmol/L Anion Gap 7 5-15 Blood Urea Nitrogen 7 L 9-23 mg/dL Creatinine 0.78 0.550-1.02 mg/dL Glomerular Filtration Rate Calc 94 >90 mL/min BUN/Creatinine Ratio 9.0 L 10.0-20.0 Serum Glucose 70 L 74-106 mg/dL Calcium Level 8.8 8.7-10.4 mg/dL Lactic Acid Level 1.0 0.4-2.0 mmol/L White Blood Count 10.8 # 4.4-10.8 10^3/uL Red Blood Count 4.68 4.0-5.20 10^6/uL Hemoglobin 14.5 12.2-16.2 g/dL Hematocrit 42.9 36.0-46.0 % Mean Corpuscular Volume 91.7 80.0-100.0 fL Mean Corpuscular Hemoglobin 31.0 28.0-32.0 pg Mean Corpuscular Hemoglobin Concent 33.8 32.0-36.0 g/dL Red Cell Distribution Width 13.5 11.8-14.3 % Platelet Count 316 140-450 10^3/uL Mean Platelet Volume 7.1 6.9-10.8 fL Neutrophils (%) (Auto) 65.5 37.0-80.0 % Lymphocytes (%) (Auto) 24.2 10.0-50.0 % Monocytes (%) (Auto) 9.1 0.0-12.0 % Eosinophils (%) (Auto) 0.9 0.0-7.0 % Basophils (%) (Auto) 0.3 0.0-2.0 % Neutrophils # (Auto) 7.1 1.6-8.6 10 ^3/uL Lymphocytes # (Auto) 2.6 0.4-5.4 10 ^3/uL Monocytes # (Auto) 1.0 0-1.3 10 ^3/uL Eosinophils # (Auto) 0.1 0-0.8 10 ^3/uL Basophils # (Auto) 0 0-0.2 10 ^3/uL Nucleated Red Blood Cells 0.1 % Total Bilirubin 0.4 0.2-1.0 mg/dL Aspartate Amino Transferase (AST) 17 13-40 U/L Alanine Aminotransferase (ALT) 17 7-40 U/L Alkaline Phosphatase 99 46-116 U/L Total Protein 6.5 5.7-8.2 g/dL Albumin 3.7 3.2-4.8 g/dL Lipase 55 H 12-53 U/L Test 12/25/24 06:43 Range/Units Urine Color Light-brown Yellow Urine Clarity Ex.turbid Clear Urine pH 8.0 5.0-9.0 Urine Specific [place] 1.020 1.001-1.035 Urine Protein 1+ H Negative Urine Ketones Negative Negative Urine Blood 1+ H Negative /uL Urine Nitrite Negative Negative Urine Bilirubin Negative Negative Urine Urobilinogen 2 H Negative mg/dL Urine Leukocyte Esterase Negative Negative /uL Urine RBC 13 0 - 4 /hpf Urine Microscopic WBC 2 0-5 /HPF Urine Squamous Epithelial Cells None seen <5 /hpf Urine Amorphous Crystals Mod None Seen /hpf Urine Bacteria None seen None Seen /hpf Urine Mucus Few None Seen Urine Glucose Normal Normal mg/dL Microbiology Date/Time Source Procedure Growth Status 12/25/24 09:50 Blood Blood Culture - Preliminary NO GROWTH AFTER 48 HOURS OF INCUBATION. Resulted 12/25/24 06:43 Voided Urine Urine Culture - Final Complete Assessment #Abdominal Pain #N/V #Fatty liver #Cholelithiasis #Constipation -Sx likely 2/2 acute GE, does not appear to be biliary colic. Continue supportive care -PPI IV BID -Diet as tolerated. Low fat recommended -Regular bowel regimen recommended -Fibroscan and fatty liver mgmt as out pt -care plan discussed with pt in detail Thank you for the consult. Plan discussed with: Patient NANETTE SUTTON MD Dec 27, 2024 19:01
[2024-12-27] MEDS: VANCOMYCIN 1.25GM/250ML 250 ML IV SCH (23:53)
[2024-12-28 01:00] VITALS: BP 92/53; PULSE 67; RESP 18; TEMP 97; O2SAT 97
[2024-12-28 05:00] VITALS: BP 119/66; PULSE 68; RESP 18; TEMP 97; O2SAT 99
[2024-12-28 05:27] LABS: Hematocrit 40.8 % (36.0-46.0); Hemoglobin 13.7 g/dL (12.2-16.2); Mean Corpuscular Hemoglobin 31.3 pg (28.0-32.0); Mean Corpuscular Volume 93.0 fL (80.0-100.0); Nucleated Red Blood Cells % 0.1 %
[2024-12-28 09:00] VITALS: BP 91/33; PULSE 75; RESP 15; TEMP 97.8; O2SAT 100
[2024-12-28 13:00] VITALS: BP 111/46; PULSE 82; RESP 17; TEMP 98; O2SAT 100
--- NOTE | 2024-12-28 13:00 | DVHPN2 ---
Progress Note - Dictate Date Seen: Dec 28, 2024 Medical Necessity Reason Pt with a Central, PICC or Fol: No Subjective c/o 09/05 abd pain, no BM/N/V. never had EGD/colo vital signs Vital Sign Date Time Temp Pulse Resp B/P (MAP) Pulse Ox O2 Delivery O2 Flow Rate FiO2 12/28/24 09:00 97.8 75 15 91/33 (52) 100 97.8 12/28/24 08:00 Room Air* 0 21 Total Intake and Output 12/27/24 12/27/24 12/28/24 15:00 23:00 07:00 Intake Total 800 ml 400 ml Balance 800 ml 400 ml medications Current Medications Medications Dose Ordered Sig/Sacha Route Start Time Stop Time Status Last Admin Dose Admin Sodium Chloride 1,000 ml @ 60 mls/hr [id number] IV 12/25/24 09:45 12/27/24 12:51 Acetaminophen/ Hydrocodone Bitart 1 tab Q4HP PRN PO 12/25/24 09:45 12/28/24 11:47 Ondansetron HCl 4 mg Q4HP PRN IV 12/25/24 09:45 12/28/24 10:18 Acetaminophen 650 mg Q6HP PRN PO 12/25/24 09:45 Levetiracetam 2,000 mg HS PO 12/25/24 22:00 12/27/24 21:50 Patient Own Medication 200 mg HS PO 12/26/24 22:00 12/27/24 21:53 Pantoprazole Sodium 40 mg DAILY IV 12/27/24 10:00 12/28/24 10:04 Sucralfate 1 gm BID@0600,2200 PO 12/26/24 22:00 12/28/24 06:29 Ketorolac Tromethamine 15 mg Q6HPRN PRN IV 12/27/24 08:15 01/01/25 08:14 12/28/24 10:18 Vancomycin HCl 0 ml @ 0 mls/hr PER PHARMACY IV 12/27/24 12:00 Piperacillin Sod/ Tazobactam Sod 100 ml @ 25 mls/hr Q8HR IV 12/27/24 12:00 12/28/24 06:28 Diphenhydramine HCl 50 mg Q6HP PRN PO 12/27/24 14:00 12/28/24 12:25 Midodrine 10 mg TID@0600,1200,1800 PO 12/27/24 18:00 12/28/24 11:38 Vancomycin HCl 250 ml @ 200 mls/hr DAILY@1100,2300 IV 12/27/24 23:00 12/28/24 11:38 objective GE: in no distress CVS: S1S2+ Lungs: clear Abdomen: nontender, soft, nondistended, BS+ laboratory and microbiology Laboratory Tests 12/28/24 04:57 12/27/24 14:10 Test 12/27/24 14:10 Range/Units Serum Glucose 70 L 74-106 mg/dL Assessment/Plan #Abdominal Pain #N/V #Fatty liver #Cholelithiasis #Constipation -Sx likely 2/2 acute GE, does not appear to be biliary colic. Continue supportive care -PPI IV BID -Diet as tolerated. Low fat recommended -Regular bowel regimen recommended -Fibroscan and fatty liver mgmt as out pt -Instructed pt colonoscopy done as emergency in hospital, needs screening colo as out pt. -care plan discussed with pt in detail Thank you for allowing me to participate in the care of this patient Dietary Evaluation Review Recommendations by RD: Dietary education by RD Comments: 1.Advance to cardiac diet when medically feasible 2.Encourage optimal PO intake 3.Refer to outpatient RD for weight management 4.Follow-up with gastroenterology and neurology 5.Continue to monitor I&O, labs, and skin integrity Expected Outcomes/Goals: 1.appetite and labs to improve 2.diet to advance 3.gradual wt loss 4.f/u in 3-5 days Plan discussed with: Patient NANETTE SUTTON MD Dec 28, 2024 13:00
--- NOTE | 2024-12-28 15:00 | DVHPN2 ---
Subjective The patient seen and examined at bedside. Complains of abdominal pain. On clear liquid diet and tolerate it. Reviewed: Care Plan, H&P, Labs, Medications, Previous Orders Changes from previous H/P or p: No Changes General: Per HPI Gastrointestinal: Nausea, Vomiting, Abdominal Pain Objective Vitals Vital Signs Date Time Temp Pulse Resp B/P (MAP) Pulse Ox O2 Delivery O2 Flow Rate FiO2 12/28/24 13:00 98.0 82 17 111/46 (67) 100 98.0 12/28/24 08:00 Room Air* 0 21 Intake/Output Intake and Output 12/28/24 07:00 Intake Total 1200 ml Balance 1200 ml Intake Oral 1200 ml # Voids 4 General Appearance: Alert, Oriented X3, Cooperative, No acute distress HEENT: Atraumatic, PERRLA, EOMI, Mucous membr. moist/pink Neck: Supple Lungs: Clear to auscultation, Normal air movement Cardiovascular: Regular rate, Normal S1, Normal S2, No murmurs, Gallops, Rubs Abdomen: Normal bowel sounds, Soft, No tenderness Neuro: Cranial nerves 3-12 NL Psych/Mental Status: Mental status NL Medications Current Medications Medications Dose Ordered Sig/Sacha Route Start Time Stop Time Status Last Admin Dose Admin Sodium Chloride 1,000 ml @ 60 mls/hr [id number] IV 12/25/24 09:45 12/27/24 12:51 60 MLS/HR Acetaminophen/ Hydrocodone Bitart 1 tab Q4HP PRN PO 12/25/24 09:45 12/28/24 11:47 1 TAB Ondansetron HCl 4 mg Q4HP PRN IV 12/25/24 09:45 12/28/24 10:18 4 MG Acetaminophen 650 mg Q6HP PRN PO 12/25/24 09:45 Levetiracetam 2,000 mg HS PO 12/25/24 22:00 12/27/24 21:50 2,000 MG Patient Own Medication 200 mg HS PO 12/26/24 22:00 12/27/24 21:53 200 MG Pantoprazole Sodium 40 mg DAILY IV 12/27/24 10:00 12/28/24 10:04 40 MG Sucralfate 1 gm BID@0600,2200 PO 12/26/24 22:00 12/28/24 06:29 1 GM Ketorolac Tromethamine 15 mg Q6HPRN PRN IV 12/27/24 08:15 01/01/25 08:14 12/28/24 10:18 15 MG Vancomycin HCl 0 ml @ 0 mls/hr PER PHARMACY IV 12/27/24 12:00 Piperacillin Sod/ Tazobactam Sod 100 ml @ 25 mls/hr Q8HR IV 12/27/24 12:00 12/28/24 14:24 25 MLS/HR Diphenhydramine HCl 50 mg Q6HP PRN PO 12/27/24 14:00 12/28/24 12:25 50 MG Midodrine 10 mg TID@0600,1200,1800 PO 12/27/24 18:00 12/28/24 11:38 10 MG Vancomycin HCl 250 ml @ 200 mls/hr DAILY@1100,2300 IV 12/27/24 23:00 12/28/24 11:38 200 MLS/HR Laboratory Results Laboratory Tests 12/27/24 14:10 12/28/24 04:57 Urinalysis Test 12/25/24 06:43 12/27/24 20:40 Urine Color Light-brown (Yellow) Urine Clarity Ex.turbid (Clear) Urine pH 8.0 (5.0-9.0) Urine Specific [place] 1.020 (1.001-1.035) Urine Protein 1+ (Negative) H Urine Ketones Negative (Negative) Urine Blood 1+ /uL (Negative) H Urine Nitrite Negative (Negative) Urine Bilirubin Negative (Negative) Urine Urobilinogen 2 mg/dL (Negative) H Urine Leukocyte Esterase Negative /uL (Negative) Urine RBC 13 /hpf (0 - 4) Urine Microscopic WBC 2 /HPF (0-5) Urine Squamous Epithelial Cells None seen /hpf (<5) Urine Amorphous Crystals Mod /hpf (None Seen) Urine Bacteria None seen /hpf (None Seen) Urine Mucus Few (None Seen) Urine Glucose Normal mg/dL (Normal) Urine Test Negative (Negative) Microbiology Microbiology Date/Time Source Procedure Growth Status 12/27/24 11:31 Blood Blood Culture - Preliminary NO GROWTH AFTER 24 HOURS OF INCUBATION. Resulted 12/25/24 06:43 Voided Urine Urine Culture - Final Complete Labs and/or images reviewed: Labs reviewed by me Assessment/Plan Assessment/Plan Gastroenteritis, infectious etiology likely Acute gastritis PUD possible Intractable abdominal pain with nausea and vomiting Leukocytosis unclear etiology Rule out sepsis History of epilepsy Plan: Continue current management. Continue pain meds Tylenol, [place], morphine Continue Protonix 40 mg daily Carafate suspension 1 g p.o. twice daily b.i.d. Continue other home medications Appreciate GI input Advance diet to regular diet Explains to patient that GI specialist recommend outpatient colonoscopy, not urgency and will not need to do it in the hospital [place] if tolerate diet. Plan discussed with: Patient Date of Service: Dec 28, 2024 Billing Provider: AC JO MD Common Visit Codes: [id number] INP/OBS CARE(HIGH) AC JO MD Dec 28, 2024 15:00
[2024-12-28 16:49] VITALS: BP 127/62; PULSE 42; RESP 20; TEMP 98.5; O2SAT 98
[2024-12-28 21:00] VITALS: BP 130/49; PULSE 45; RESP 16; TEMP 97.4; O2SAT 98
[2024-12-29] VITALS (7 sets, daily range): BP systolic 107–139; BP diastolic 46–92; PULSE 43–60; RESP 15–17; TEMP 96.8–98.3; O2SAT 95–98
--- NOTE | 2024-12-29 13:33 | DVHPN2 ---
Subjective The patient seen and examined at bedside. Complains of abdominal pain. On soft diet and tolerate it. Episode of chest discomfort, also bradycardia at 40s. Patient complains of nausea and vomit overnight. Reviewed: Care Plan, H&P, Labs, Medications, Previous Orders Changes from previous H/P or p: No Changes General: Per HPI Gastrointestinal: Nausea, Vomiting, Abdominal Pain Objective Vitals Vital Signs Date Time Temp Pulse Resp B/P (MAP) Pulse Ox O2 Delivery O2 Flow Rate FiO2 12/29/24 12:37 97.8 44 15 115/58 (77) 96 97.8 12/29/24 08:00 Room Air* 0 21 Intake/Output Intake and Output 12/29/24 07:00 Intake Total 1950 ml Balance 1950 ml Intake Oral 750 ml IV Total 1200 ml # Voids 7 General Appearance: Alert, Oriented X3, Cooperative, No acute distress HEENT: Atraumatic, PERRLA, EOMI, Mucous membr. moist/pink Neck: Supple Lungs: Clear to auscultation, Normal air movement Cardiovascular: Regular rate, Normal S1, Normal S2, No murmurs, Gallops, Rubs Abdomen: Normal bowel sounds, Soft, No tenderness Neuro: Cranial nerves 3-12 NL Psych/Mental Status: Mental status NL Medications Current Medications Medications Dose Ordered Sig/Sacha Route Start Time Stop Time Status Last Admin Dose Admin Sodium Chloride 1,000 ml @ 60 mls/hr [id number] IV 12/25/24 09:45 12/28/24 21:05 60 MLS/HR Acetaminophen/ Hydrocodone Bitart 1 tab Q4HP PRN PO 12/25/24 09:45 12/29/24 05:31 1 TAB Ondansetron HCl 4 mg Q4HP PRN IV 12/25/24 09:45 12/29/24 05:31 4 MG Acetaminophen 650 mg Q6HP PRN PO 12/25/24 09:45 Levetiracetam 2,000 mg HS PO 12/25/24 22:00 12/28/24 23:01 2,000 MG Patient Own Medication 200 mg HS PO 12/26/24 22:00 12/28/24 22:00 200 MG Pantoprazole Sodium 40 mg DAILY IV 12/27/24 10:00 12/29/24 09:05 40 MG Sucralfate 1 gm BID@0600,2200 PO 12/26/24 22:00 12/29/24 05:32 1 GM Ketorolac Tromethamine 15 mg Q6HPRN PRN IV 12/27/24 08:15 01/01/25 08:14 12/29/24 09:06 15 MG Vancomycin HCl 0 ml @ 0 mls/hr PER PHARMACY IV 12/27/24 12:00 Piperacillin Sod/ Tazobactam Sod 100 ml @ 25 mls/hr Q8HR IV 12/27/24 12:00 12/29/24 05:32 25 MLS/HR Diphenhydramine HCl 50 mg Q6HP PRN PO 12/27/24 14:00 12/29/24 09:05 50 MG Midodrine 10 mg TID@0600,1200,1800 PO 12/27/24 18:00 12/28/24 18:33 10 MG Laboratory Results Laboratory Tests 12/27/24 14:10 12/28/24 04:57 Urinalysis Test 12/25/24 06:43 12/27/24 20:40 Urine Color Light-brown (Yellow) Urine Clarity Ex.turbid (Clear) Urine pH 8.0 (5.0-9.0) Urine Specific [place] 1.020 (1.001-1.035) Urine Protein 1+ (Negative) H Urine Ketones Negative (Negative) Urine Blood 1+ /uL (Negative) H Urine Nitrite Negative (Negative) Urine Bilirubin Negative (Negative) Urine Urobilinogen 2 mg/dL (Negative) H Urine Leukocyte Esterase Negative /uL (Negative) Urine RBC 13 /hpf (0 - 4) Urine Microscopic WBC 2 /HPF (0-5) Urine Squamous Epithelial Cells None seen /hpf (<5) Urine Amorphous Crystals Mod /hpf (None Seen) Urine Bacteria None seen /hpf (None Seen) Urine Mucus Few (None Seen) Urine Glucose Normal mg/dL (Normal) Urine Test Negative (Negative) Microbiology Microbiology Date/Time Source Procedure Growth Status 12/28/24 18:41 Abdomen Gram Stain Pending Resulted 12/28/24 18:41 Abdomen Wound Culture - Preliminary Resulted 12/27/24 11:31 Blood Blood Culture - Preliminary NO GROWTH AFTER 48 HOURS OF INCUBATION. Resulted 12/25/24 06:43 Voided Urine Urine Culture - Final Complete Labs and/or images reviewed: Labs reviewed by me Assessment/Plan Assessment/Plan Gastroenteritis, infectious etiology likely Acute gastritis PUD possible Intractable abdominal pain with nausea and vomiting Leukocytosis unclear etiology Rule out sepsis History of epilepsy Bradycardia with HR in the 40s Plan: Continue current management. Continue pain meds Tylenol, [place], morphine Continue Protonix 40 mg daily Carafate suspension 1 g p.o. twice daily b.i.d. Continue other home medications Appreciate GI input Advance diet to regular diet Explains to patient that GI specialist recommend outpatient colonoscopy, not urgency and will not need to do it in the hospital Will get EKG. Will consult nanoelectronics engineer for bradycardia Plan discussed with: Patient My Orders Orders - AC JO MD Procedure Category Date Status Time Regular Diet DIET 12/28/24 Transmitted Dinner Wound Culture W/ Gs SO 12/28/24 In Process 17:58 Drug Screen LAB 12/29/24 Logged 12:04 Date of Service: Dec 29, 2024 Billing Provider: AC JO MD Common Visit Codes: [id number] INP/OBS CARE(HIGH) AC JO MD Dec 29, 2024 13:33
--- NOTE | 2024-12-29 13:50 | DVHPN2 ---
Progress Note - Dictate Date Seen: Dec 29, 2024 Medical Necessity Reason Pt with a Central, PICC or Fol: No Subjective had mild N/V overnight, had bradycardia vital signs Vital Sign Date Time Temp Pulse Resp B/P (MAP) Pulse Ox O2 Delivery O2 Flow Rate FiO2 12/29/24 12:37 97.8 44 15 115/58 (77) 96 97.8 12/29/24 08:00 Room Air* 0 21 Total Intake and Output 12/28/24 12/28/24 12/29/24 15:00 23:00 07:00 Intake Total 1100 ml 550 ml 300 ml Balance 1100 ml 550 ml 300 ml medications Current Medications Medications Dose Ordered Sig/Sacha Route Start Time Stop Time Status Last Admin Dose Admin Sodium Chloride 1,000 ml @ 60 mls/hr [id number] IV 12/25/24 09:45 12/28/24 21:05 60 MLS/HR Acetaminophen/ Hydrocodone Bitart 1 tab Q4HP PRN PO 12/25/24 09:45 12/29/24 05:31 1 TAB Ondansetron HCl 4 mg Q4HP PRN IV 12/25/24 09:45 12/29/24 05:31 4 MG Acetaminophen 650 mg Q6HP PRN PO 12/25/24 09:45 Levetiracetam 2,000 mg HS PO 12/25/24 22:00 12/28/24 23:01 2,000 MG Patient Own Medication 200 mg HS PO 12/26/24 22:00 12/28/24 22:00 200 MG Pantoprazole Sodium 40 mg DAILY IV 12/27/24 10:00 12/29/24 09:05 40 MG Sucralfate 1 gm BID@0600,2200 PO 12/26/24 22:00 12/29/24 05:32 1 GM Ketorolac Tromethamine 15 mg Q6HPRN PRN IV 12/27/24 08:15 01/01/25 08:14 12/29/24 09:06 15 MG Vancomycin HCl 0 ml @ 0 mls/hr PER PHARMACY IV 12/27/24 12:00 Piperacillin Sod/ Tazobactam Sod 100 ml @ 25 mls/hr Q8HR IV 12/27/24 12:00 12/29/24 05:32 25 MLS/HR Diphenhydramine HCl 50 mg Q6HP PRN PO 12/27/24 14:00 12/29/24 09:05 50 MG Midodrine 10 mg TID@0600,1200,1800 PO 12/27/24 18:00 12/28/24 18:33 10 MG objective GE: in no distress CVS: S1S2+ Lungs: clear Abdomen: nontender, soft, nondistended, BS+ laboratory and microbiology Laboratory Tests 12/28/24 04:57 12/27/24 14:10 Test 12/27/24 14:10 Range/Units Serum Glucose 70 L 74-106 mg/dL Assessment/Plan #Abdominal Pain #N/V #Fatty liver #Cholelithiasis #Constipation -Sx likely 2/2 acute GE, does not appear to be biliary colic. Continue supportive care -PPI IV BID -Diet as tolerated. Low fat recommended -Regular bowel regimen recommended -Fibroscan and fatty liver mgmt as out pt -Instructed pt colonoscopy done as emergency in hospital, needs screening colo as out pt. -care plan discussed with pt in detail Thank you for allowing me to participate in the care of this patient Dietary Evaluation Review Recommendations by RD: Dietary education by RD Comments: 1.Advance to cardiac diet when medically feasible 2.Encourage optimal PO intake 3.Refer to outpatient RD for weight management 4.Follow-up with gastroenterology and neurology 5.Continue to monitor I&O, labs, and skin integrity Expected Outcomes/Goals: 1.appetite and labs to improve 2.diet to advance 3.gradual wt loss 4.f/u in 3-5 days Plan discussed with: Patient, Other NANETTE SUTTON MD Dec 29, 2024 13:50
[2024-12-30] VITALS (8 sets, daily range): BP systolic 104–117; BP diastolic 45–71; PULSE 50–57; RESP 16–19; TEMP 97.4–98.9; O2SAT 94–97
[2024-12-30 07:25] LABS: Hematocrit 42.8 % (36.0-46.0); Hemoglobin 14.4 g/dL (12.2-16.2); Mean Corpuscular Hemoglobin 31.3 pg (28.0-32.0); Mean Corpuscular Volume 93.0 fL (80.0-100.0); Nucleated Red Blood Cells % 0.1 %
[2024-12-30 07:38] LABS: Anion Gap 14 (5-15); Potassium 4.2 mmol/L (3.5-5.1); Sodium 141 mmol/L (136-145)
[2024-12-30 07:41] LABS: Calcium 8.5 mg/dL (8.7-10.4); Carbon Dioxide 18 mmol/L (20-31); Chloride 109 mmol/L (98-107)
[2024-12-30 07:44] LABS: BUN/Creatinine Ratio 5.3 (10.0-20.0); Blood Urea Nitrogen 22 mg/dL (9-23); Glucose 72 mg/dL (74-106)
[2024-12-30] MEDS: LACTATED RINGER'S 1,000 ML IV ONE (10:00)
--- NOTE | 2024-12-30 10:00 | DVHPN2 ---
Reviewed: Care Plan, H&P, Labs, Medications, Previous Orders Changes from previous H/P or p: No Changes General: Per HPI Gastrointestinal: Nausea, Vomiting, Abdominal Pain Objective Vitals Vital Signs Date Time Temp Pulse Resp B/P (MAP) Pulse Ox O2 Delivery O2 Flow Rate FiO2 12/30/24 08:54 98.1 51 16 113/56 (75) 96 98.1 12/29/24 19:55 Room Air* 0 21 Intake/Output Intake and Output 12/30/24 06:59 Intake Total 2450 ml Balance 2450 ml Intake Oral 1050 ml IV Total 1400 ml # Voids 6 # Bowel Movements 1 Exam GEN: Healthy appearing, well-developed, NAD. HEENT: NC/AT; MMM. CV: RRR, no m/r/g. LUNGS: CTAB, no w/r/c. ABD: Epigastrium tender to palpation, normoactive bowel sounds, EXT: skin Warm, well perfused. no rashes. No clubbing, cyanosis, or edema. NEURO: Ambulating with no limitations. No focal deficits. General Appearance: Alert, Oriented X3, Cooperative, No acute distress HEENT: Atraumatic, PERRLA, EOMI, Mucous membr. moist/pink Neck: Supple Lungs: Clear to auscultation, Normal air movement Cardiovascular: Regular rate, Normal S1, Normal S2, No murmurs, Gallops, Rubs Abdomen: Normal bowel sounds, Soft, No tenderness Neuro: Cranial nerves 3-12 NL Psych/Mental Status: Mental status NL Medications Current Medications Medications Dose Ordered Sig/Sacha Route Start Time Stop Time Status Last Admin Dose Admin Sodium Chloride 1,000 ml @ 60 mls/hr [id number] IV 12/25/24 09:45 12/30/24 01:16 60 MLS/HR Acetaminophen/ Hydrocodone Bitart 1 tab Q4HP PRN PO 12/25/24 09:45 12/29/24 22:00 1 TAB Ondansetron HCl 4 mg Q4HP PRN IV 12/25/24 09:45 12/29/24 17:24 4 MG Acetaminophen 650 mg Q6HP PRN PO 12/25/24 09:45 Levetiracetam 2,000 mg HS PO 12/25/24 22:00 12/29/24 22:00 2,000 MG Patient Own Medication 200 mg HS PO 12/26/24 22:00 12/29/24 22:09 200 MG Pantoprazole Sodium 40 mg DAILY IV 12/27/24 10:00 12/30/24 09:38 40 MG Sucralfate 1 gm BID@0600,2200 PO 12/26/24 22:00 12/30/24 06:11 1 GM Ketorolac Tromethamine 15 mg Q6HPRN PRN IV 12/27/24 08:15 01/01/25 08:14 12/29/24 17:24 15 MG Vancomycin HCl 0 ml @ 0 mls/hr PER PHARMACY IV 12/27/24 12:00 Piperacillin Sod/ Tazobactam Sod 100 ml @ 25 mls/hr Q8HR IV 12/27/24 12:00 12/30/24 06:11 25 MLS/HR Diphenhydramine HCl 50 mg Q6HP PRN PO 12/27/24 14:00 12/30/24 01:20 50 MG Midodrine 10 mg TID@0600,1200,1800 PO 12/27/24 18:00 12/28/24 18:33 10 MG Lorazepam 1 mg Q5MINP PRN IV 12/30/24 07:00 Laboratory Results Laboratory Tests 12/30/24 05:57 Chemistry Test 12/30/24 05:57 Calcium Level 8.5 mg/dL (8.7-10.4) L Urinalysis Test 12/25/24 06:43 12/27/24 20:40 Urine Color Light-brown (Yellow) Urine Clarity Ex.turbid (Clear) Urine pH 8.0 (5.0-9.0) Urine Specific [place] 1.020 (1.001-1.035) Urine Protein 1+ (Negative) H Urine Ketones Negative (Negative) Urine Blood 1+ /uL (Negative) H Urine Nitrite Negative (Negative) Urine Bilirubin Negative (Negative) Urine Urobilinogen 2 mg/dL (Negative) H Urine Leukocyte Esterase Negative /uL (Negative) Urine RBC 13 /hpf (0 - 4) Urine Microscopic WBC 2 /HPF (0-5) Urine Squamous Epithelial Cells None seen /hpf (<5) Urine Amorphous Crystals Mod /hpf (None Seen) Urine Bacteria None seen /hpf (None Seen) Urine Mucus Few (None Seen) Urine Glucose Normal mg/dL (Normal) Urine Test Negative (Negative) Microbiology Microbiology Date/Time Source Procedure Growth Status 12/28/24 18:41 Abdomen Gram Stain - Final Resulted 12/28/24 18:41 Abdomen Wound Culture - Preliminary Resulted 12/27/24 11:31 Blood Blood Culture - Preliminary NO GROWTH AFTER 48 HOURS OF INCUBATION. Resulted 12/25/24 06:43 Voided Urine Urine Culture - Final Complete Labs and/or images reviewed: Labs reviewed by me, Image(s) reviewed by me Assessment/Plan Assessment/Plan 49-year-old female with past medical history of epilepsy who presents to the ED with abdominal pain with nausea and vomiting, with complaints radiating to the back, reports that the pain is 8/10 dull and constant. She reports that she vomited multiple times with minimal relief, food contents and now yellow in color. Patient reports that she vomited over 10 times. Patient's [id number] Carmen at the bedside. Patient denies any recent trauma or injury, recent sick contacts, recent travels, recent ingestion of spoiled food, chest pain, shortness of breath, fever, chills, lightheadedness, weakness, dizziness, diarrhea, urinary symptoms. 12/26: Patient has started having abdominal pain then started having nausea and vomiting, there was no diarrhea. Later the pain also started radiating to the back. Patient's lipase is mildly elevated. She does not take any weight loss pills,. CT was done showing cholelithiasis some nonobstructive nephrolithiasis, but no other acute processes, hepatic steatosis. Patient also had leukocytosis with left shift neutrophilia. We will start patient on ceftriaxone Flagyl for considerable possible gastroenteritis. Start Protonix IV 40, with Carafate 1 gram b.i.d.,. Continue slow IV fluids. Blood pressure low but apparently this is chronic. We will try fluid bolus. Otherwise continue antiemetics and prn pain medications, avoiding any NSAIDs., for pain we are doing Tylenol, Ponce, morphine, avoiding Toradol for possible PUD.. Urine . Full liquid diet. EKG. 12/27. EKG was unconcerning. Urine negative, awaiting Toradol still,. Continuing IV antibiotics, continuing Protonix and Carafate. Pain is 3/10 this morning. Pain still limited to epigastrium and right upper quadrant. No Melendrez's sign Melendrez sign negative. No guarding rigidity. We will get upright KUB, holding off GI consult at this point has pain is improving. Blood pressure low, starting midodrine 10 t.i.d., stat KUB portable, 12/30: Over weekend no procedures, GI recommended colonoscopy in hospital, we will follow up with GI today. Continuing Protonix. Continue IV antibiotics for possible gastroenteritis. Patient continues to complain of pain today awaiting in his 6. Over weekend patient noted to be bradycardic, EKG with T-wave flattening and low voltage, cardiology is consulted. We will get echo today. Patient has significant KEYONNA Monday creatinine 0.7 today creatinine 4.1, we will give bolus 1 L LR and repeat BMP. We will consider repeat CT abdomen. - keyonna likely from vanc/zosyn. stop abx. renal u/s. . for abd pain repeat CT ab. card to follow for bradycardia and flattening twaves. unclear cause of epigastric pain, gi to follow. Diagnosis: Gastroenteritis, infectious etiology likely Acute gastritis PUD possible Intractable abdominal pain with nausea and vomiting Leukocytosis unclear etiology Rule out sepsis History of epilepsy Plan: For pain use Tylenol, Ponce, morphine Slow IV fluids after bolus Start Protonix IV 40 mg daily Carafate suspension 1 g p.o. twice daily b.i.d. Continue other home medications Urine EKG Med surge Full code Plan discussed with: Patient My Orders Orders - LEVY HOOVER MD Procedure Category Date Status Time B-Type Natriuretic LAB 12/30/24 Logged Peptide 12:00 Lactated Ringer's PHA 12/30/24 Logged 10:00 Echo 2d Mode Cardiac US 12/30/24 Verified DOP 09:54 Date of Service: Dec 30, 2024 Billing Provider: LEVY HOOVER MD Common Visit Codes: [id number] INP/OBS CARE(HIGH) LEVY HOOVER MD Dec 30, 2024 10:00
--- NOTE | 2024-12-30 14:49 | DVHINCON2 ---
Date Seen: Dec 30, [address] Viramontes Reason for Consultation bradycardia History of Present Illness A 49-year-old female with a past medical history of seizure disorder presented with complaints of abdominal pain associated with nausea and vomiting. On admission, she was noted to be hypertensive. Subsequently, she developed hypotension Workup revealed findings consistent with early sepsis; CT abdomen demonstrated only cholelithiasis without cholecystitis. The patient was started on broad-spectrum antibiotics (vancomycin and Zosyn). During hospitalization, the patient was also found to have bradycardia, prompting cardiology consultation. Review of telemetry and EKG showed normal sinus rhythm without conduction abnormalities. The lowest recorded heart rate was 42 bpm 12/28/24. Notably, the patient was receiving Midodrine 10 mg three times daily for prior hypotension. She reports that she refused Midodrine sta rting December 28, after which her heart rate slowly improved. Renal function has worsened with serum creatinine of 4 mg/dL (baseline normal at admission), normal BUN. Pending nephrology consultation The patient remains hemodynamically stable, afebrile, and asymptomatic from a cardiac standpoint. CYLINDRICAL MIXER: Other (Epilepsy) Past Medical History Nephrolithiasis Past Surgical History: Other (D&C and lithotripsy ) Family History: Cancer, Other (Mom with diabetes and liver cancer.) Smoke: No ALCOHOL: none Drugs: None Lives: with Family Domestic Violence: Neg Family History: FH: breast cancer FH: liver cancer Allergies: Coded Allergies: NO KNOWN ALLERGIES (Unverified , 12/25/24) Home Meds Reported Medications Zonisamide (Zonisamide) 100 Mg Cap, 200 MG PO HS, CAP 12/25/24 Levetiracetam (KEPPRA TABLET) 500 Mg Tb, 2000 MG PO HS, TAB 12/25/24 Current Medications Current Medications Medications (Trade) Dose Ordered Sig/Sacha Route PRN Reason Start Time Stop Time Status Last Admin Lorazepam (Ativan Inj) 1 mg Q5MINP PRN IV SEIZURES 12/30/24 07:00 Pantoprazole Sodium (Protonix) 40 mg BID IV 12/30/24 22:00 UNV Famotidine (Pepcid Injection) 20 mg Q12HR IV 12/30/24 22:00 UNV Piperacillin Sod/ Tazobactam Sod 100 ml @ 25 mls/hr Q12H IV 12/31/24 02:00 Vital Signs Vital Signs Date Time Temp Pulse Resp B/P (MAP) Pulse Ox O2 Delivery O2 Flow Rate FiO2 12/30/24 13:00 97.7 51 16 115/71 (86) 97 97.7 12/30/24 08:00 Room Air* 0 21 Physical Exam Physical Exam: General: Alert, oriented 3, no acute distress HEENT: No icterus or pallor CV: Regular rate and rhythm, no murmurs, rubs, or gallops Resp: Clear to auscultation bilaterally Abdomen: Soft, non-tender, no rebound or guarding Extremities: No edema, pulses 2+ and symmetric Neuro: No focal deficits Labs/Diagnostic Data Labs Test 12/30/24 05:57 12/28/24 22:44 12/27/24 20:40 12/27/24 11:50 Range/Units White Blood Count 13.2 #H 4.4-10.8 10^3/uL Red Blood Count 4.60 4.0-5.20 10^6/uL Hemoglobin 14.4 12.2-16.2 g/dL Hematocrit 42.8 36.0-46.0 % Mean Corpuscular Volume 93.0 80.0-100.0 fL Mean Corpuscular Hemoglobin 31.3 28.0-32.0 pg Mean Corpuscular Hemoglobin Concent 33.6 32.0-36.0 g/dL Red Cell Distribution Width 13.4 11.8-14.3 % Platelet Count 322 140-450 10^3/uL Mean Platelet Volume 7.0 6.9-10.8 fL Neutrophils (%) (Auto) 73.3 37.0-80.0 % Lymphocytes (%) (Auto) 15.4 10.0-50.0 % Monocytes (%) (Auto) 9.7 0.0-12.0 % Eosinophils (%) (Auto) 1.2 0.0-7.0 % Basophils (%) (Auto) 0.4 0.0-2.0 % Neutrophils # (Auto) 9.7 H 1.6-8.6 10 ^3/uL Lymphocytes # (Auto) 2.0 0.4-5.4 10 ^3/uL Monocytes # (Auto) 1.3 0-1.3 10 ^3/uL Eosinophils # (Auto) 0.2 0-0.8 10 ^3/uL Basophils # (Auto) 0.1 0-0.2 10 ^3/uL Nucleated Red Blood Cells 0.1 % Sodium Level 141 136-145 mmol/L Potassium Level 4.2 3.5-5.1 mmol/L Chloride Level 109 H 98-107 mmol/L Carbon Dioxide Level 18 L 20-31 mmol/L Anion Gap 14 5-15 Blood Urea Nitrogen 22 9-23 mg/dL Creatinine 4.20 H 0.550-1.02 mg/dL Glomerular Filtration Rate Calc 12 >90 mL/min BUN/Creatinine Ratio 5.3 L 10.0-20.0 Serum Glucose 72 L 74-106 mg/dL Calcium Level 8.5 L 8.7-10.4 mg/dL B-Type Natriuretic Peptide 284.73 0-100 pg/mL Random Vancomycin Level 22.3 H 5-10 ug/mL Vancomycin Level Trough 30.4 *H 5-10 ug/mL Urine Test Negative Negative Lactic Acid Level 1.0 0.4-2.0 mmol/L Test 12/27/24 05:07 12/25/24 09:50 12/25/24 06:43 Range/Units Total Bilirubin 0.4 0.2-1.0 mg/dL Aspartate Amino Transferase (AST) 17 13-40 U/L Alanine Aminotransferase (ALT) 17 7-40 U/L Alkaline Phosphatase 99 46-116 U/L Total Protein 6.5 5.7-8.2 g/dL Albumin 3.7 3.2-4.8 g/dL Lipase 55 H 12-53 U/L Urine Color Light-brown Yellow Urine Clarity Ex.turbid Clear Urine pH 8.0 5.0-9.0 Urine Specific [place] 1.020 1.001-1.035 Urine Protein 1+ H Negative Urine Ketones Negative Negative Urine Blood 1+ H Negative /uL Urine Nitrite Negative Negative Urine Bilirubin Negative Negative Urine Urobilinogen 2 H Negative mg/dL Urine Leukocyte Esterase Negative Negative /uL Urine RBC 13 0 - 4 /hpf Urine Microscopic WBC 2 0-5 /HPF Urine Squamous Epithelial Cells None seen <5 /hpf Urine Amorphous Crystals Mod None Seen /hpf Urine Bacteria None seen None Seen /hpf Urine Mucus Few None Seen Urine Glucose Normal Normal mg/dL Microbiology Date/Time Source Procedure Growth Status 12/28/24 18:41 Abdomen Gram Stain - Final Resulted 12/28/24 18:41 Abdomen Wound Culture - Preliminary Resulted 12/27/24 11:31 Blood Blood Culture - Preliminary NO GROWTH AFTER 72 HOURS OF INCUBATION. Resulted 12/25/24 06:43 Voided Urine Urine Culture - Final Complete Assessment Diagnostic Studies: EKG: Normal sinus rhythm, no AV block or ischemic changes Telemetry: HR range 4287 bpm, no pauses or arrhythmias Echocardiogram: Preserved LVEF, no structural abnormalities CT Abdomen/Pelvis: Cholelithiasis, fatty liver no acute process Labs: Cr 4 mg/dL, WBC mildly elevated, otherwise unremarkable Assessment: 1. Bradycardia, likely secondary to Midodrine temporal correlation with initiation and resolution after discontinuation. 2. Sepsis (improving) likely intra-abdominal source 3. Acute kidney injury 4. Seizure disorder stable on current antiepileptic regimen. Plan: Discontinue Midodrine; monitor HR and BP. Continue telemetry while inpatient. Consider outpatient event monitor if recurrent bradycardia or symptoms. Educate patient on monitoring HR (Apple Watch or equivalent). Manage KEYONNA per primary team and nephrology; avoid nephrotoxins. Cardiology to follow peripherally; no further acute intervention needed. Case discussed with Dr Marcial Time spent on care 71 min Plan discussed with: Patient, Other (Dr Viramontes ) NYHA Physical activity limitations: Class1(None)absent sob, Date of Service: Dec 30, 2024 Billing Provider: KIERRA RAMÍREZ Sr., MD Cardiology Common Codes: [id number] CARE 30-74 MIN FELICITA BABB RESIDENT Dec 30, 2024 14:49
--- NOTE | 2024-12-30 14:52 | DVH ---
INDICATION: sharon, eval renal disease TECHNIQUE: Multiple real-time sonographic images of the kidneys and bladder were obtained. COMPARISON: XY KUB ABDOMEN SINGLE VIEW on DOS: 12/27/24, CT CT AB PEL WO CON-NO ORAL OR IV on DOS: FINDINGS: The right kidney measures 11 cm in length, which is normal in size. There is normal echogen icity of the right kidney. No hydronephrosis. The left kidney measures 12 cm in length, which is normal in size. There is normal echogenicity of th e left kidney. No hydronephrosis. No large intraluminal masses are seen in the bladder. IMPRESSION: 1. Normal sonographic appearance of the kidneys. No hydronephrosis.
--- NOTE | 2024-12-30 15:45 | DVHINCON2 ---
Date of service: Dec 30, [address] Viramontes Reason for Consultation Acute kidney injury History of Present Illness Patient is 49 y/o female with PMH of nephrolithiasis who was admitted on 12/25 for epigastic pain. Hospital course is noted for increased in BUN and creatinine, nephrology is consulted for KEYONNA. Past Medical History Nephrolithiasis Past Surgical History Lithotripsy Allergies: Coded Allergies: NO KNOWN ALLERGIES (Unverified , 12/25/24) Home Meds Reported Medications Zonisamide (Zonisamide) 100 Mg Cap, 200 MG PO HS, CAP 12/25/24 Levetiracetam (KEPPRA TABLET) 500 Mg Tb, 2000 MG PO HS, TAB 12/25/24 Current Medications Current Medications Medications (Trade) Dose Ordered Sig/Sacha Route PRN Reason Start Time Stop Time Status Last Admin Pantoprazole Sodium (Protonix) 40 mg BID IV 12/30/24 22:00 UNV Famotidine (Pepcid Injection) 20 mg EOD IV 12/30/24 22:00 12/30/24 21:47 Piperacillin Sod/ Tazobactam Sod 100 ml @ 25 mls/hr Q12H IV 12/31/24 02:00 12/31/24 09:20 DC 12/31/24 01:30 Sodium Bicarbonate 50 ml/ Sodium Chloride 1,050 ml @ 120 mls/hr Q8H45M IV 12/30/24 15:45 12/31/24 09:23 Dopamine HCl/ Dextrose 250 ml @ 6.18 mls/hr Q24H IV 12/30/24 15:45 12/30/24 17:00 Ceftriaxone Sodium 50 ml @ 100 mls/hr DAILY@09 IV 12/31/24 09:30 Family History: FH: breast cancer FH: liver cancer Review of Systems All 12 item review of systems reviewed with the patient nonsignificant except what is mentioned in the history of present illness H&P Exam Vital Signs/I&O Vital Sign Date Time Temp Pulse Resp B/P (MAP) Pulse Ox O2 Delivery O2 Flow Rate FiO2 12/31/24 08:43 97.2 49 16 139/63 (88) 95 97.2 12/31/24 08:31 Room Air* 0 21 Intake and Output 12/30/24 12/31/24 19:00 07:00 Intake Total 300 ml 1687.98 ml Balance 300 ml 1687.98 ml Intake Oral 300 ml 800 ml IV Total 887.98 ml # Voids 1 3 # Bowel Movements 1 Physical Exam Patient lying comfortably in bed Lungs clear to auscultation bilaterally Cardiac exam bradycardia GI 1+ epigastric tenderness normal Extremities no clubbing cyanosis or edema Neuro nonfocal Labs/Diagnostic Data Labs/Diagnostic Data Laboratory Tests Test 12/31/24 09:04 12/31/24 05:24 12/30/24 16:31 12/30/24 05:57 Range/Units Urine Creatinine 33.46 30.0-125.0 mg/dL Urine Protein/Creatinine Ratio 0.52 Urine Sodium 126 40-220 mmol/L Urine Total Protein 17.3 H 1-14 mg/dL Urine Opiates Screen Neg NEGATIVE Urine Fentanyl Screen Neg NEGATIVE Urine Barbiturates Screen Neg NEGATIVE Urine Phencyclidine Screen Neg NEGATIVE Urine Amphetamines Screen Neg NEGATIVE Urine Benzodiazepines Screen Neg NEGATIVE Urine Cocaine Screen Neg NEGATIVE Urine Cannabinoids Screen Neg NEGATIVE White Blood Count 14.3 H 13.2 #H 4.4-10.8 10^3/uL Red Blood Count 4.65 4.60 4.0-5.20 10^6/uL Hemoglobin 14.8 14.4 12.2-16.2 g/dL Hematocrit 42.7 42.8 36.0-46.0 % Mean Corpuscular Volume 91.8 93.0 80.0-100.0 fL Mean Corpuscular Hemoglobin 31.9 31.3 28.0-32.0 pg Mean Corpuscular Hemoglobin Concent 34.7 33.6 32.0-36.0 g/dL Red Cell Distribution Width 13.5 13.4 11.8-14.3 % Platelet Count 348 322 140-450 10^3/uL Mean Platelet Volume 7.1 7.0 6.9-10.8 fL Neutrophils (%) (Auto) 78.0 73.3 37.0-80.0 % Lymphocytes (%) (Auto) 12.2 15.4 10.0-50.0 % Monocytes (%) (Auto) 8.7 9.7 0.0-12.0 % Eosinophils (%) (Auto) 0.7 1.2 0.0-7.0 % Basophils (%) (Auto) 0.4 0.4 0.0-2.0 % Neutrophils # (Auto) 11.1 H 9.7 H 1.6-8.6 10 ^3/uL Lymphocytes # (Auto) 1.7 2.0 0.4-5.4 10 ^3/uL Monocytes # (Auto) 1.2 1.3 0-1.3 10 ^3/uL Eosinophils # (Auto) 0.1 0.2 0-0.8 10 ^3/uL Basophils # (Auto) 0.1 0.1 0-0.2 10 ^3/uL Nucleated Red Blood Cells 0.0 0.1 % Prothrombin Time 10.6 9.3-11.8 sec Prothrombin Time INR 1.00 0.9-1.15 Activated Partial Thromboplast Time 29.0 24.5-34.5 SEC Sodium Level 139 141 136-145 mmol/L Potassium Level 3.6 4.2 3.5-5.1 mmol/L Chloride Level 106 109 H 98-107 mmol/L Carbon Dioxide Level 20 18 L 20-31 mmol/L Anion Gap 13 14 5-15 Blood Urea Nitrogen 20 22 9-23 mg/dL Creatinine 5.50 #H 4.20 H 0.550-1.02 mg/dL Glomerular Filtration Rate Calc 9 12 >90 mL/min BUN/Creatinine Ratio 3.6 L 5.3 L 10.0-20.0 Serum Glucose 106 72 L 74-106 mg/dL Calcium Level 8.9 8.5 L 8.7-10.4 mg/dL Total Bilirubin 0.5 0.2-1.0 mg/dL Aspartate Amino Transferase (AST) 36 13-40 U/L Alanine Aminotransferase (ALT) 26 7-40 U/L Alkaline Phosphatase 108 46-116 U/L Total Protein 6.2 5.7-8.2 g/dL Albumin 3.3 3.2-4.8 g/dL Uric Acid 5.4 3.1-7.8 mg/dL Phosphorus Level 3.7 2.4-5.1 mg/dL Magnesium Level 2.1 1.6-2.6 mg/dL Vitamin D 25-Hydroxy 12.3 L 30.0-100 ng/mL Parathyroid Hormone (Intact) 94.4 H 18.4-80.1 pg/mL Complement C3 90 82-167 mg/dL Complement C4 11 L 12-38 mg/dL B-Type Natriuretic Peptide 284.73 0-100 pg/mL Random Vancomycin Level 22.3 H 5-10 ug/mL Test 12/29/24 12:58 12/28/24 22:44 12/28/24 04:57 12/27/24 20:40 Range/Units Random Vancomycin Level 24.5 H 5-10 ug/mL Vancomycin Level Trough 30.4 *H 5-10 ug/mL White Blood Count 9.6 4.4-10.8 10^3/uL Red Blood Count 4.39 4.0-5.20 10^6/uL Hemoglobin 13.7 12.2-16.2 g/dL Hematocrit 40.8 36.0-46.0 % Mean Corpuscular Volume 93.0 80.0-100.0 fL Mean Corpuscular Hemoglobin 31.3 28.0-32.0 pg Mean Corpuscular Hemoglobin Concent 33.6 32.0-36.0 g/dL Red Cell Distribution Width 13.6 11.8-14.3 % Platelet Count 300 140-450 10^3/uL Mean Platelet Volume 7.0 6.9-10.8 fL Neutrophils (%) (Auto) 61.7 37.0-80.0 % Lymphocytes (%) (Auto) 25.6 10.0-50.0 % Monocytes (%) (Auto) 10.2 0.0-12.0 % Eosinophils (%) (Auto) 2.1 0.0-7.0 % Basophils (%) (Auto) 0.4 0.0-2.0 % Neutrophils # (Auto) 5.9 1.6-8.6 10 ^3/uL Lymphocytes # (Auto) 2.5 0.4-5.4 10 ^3/uL Monocytes # (Auto) 1.0 0-1.3 10 ^3/uL Eosinophils # (Auto) 0.2 0-0.8 10 ^3/uL Basophils # (Auto) 0 0-0.2 10 ^3/uL Nucleated Red Blood Cells 0.1 % Urine Test Negative Negative Test 12/27/24 14:10 12/27/24 11:50 12/27/24 05:07 12/26/24 05:20 Range/Units Sodium Level 140 139 138 136-145 mmol/L Potassium Level 3.2 L 3.5 3.4 L 3.5-5.1 mmol/L Chloride Level 109 H 108 H 107 98-107 mmol/L Carbon Dioxide Level 24 22 21 20-31 mmol/L Anion Gap 7 9 10 5-15 Blood Urea Nitrogen 7 L 7 L < 5 L 9-23 mg/dL Creatinine 0.78 0.74 0.74 0.550-1.02 mg/dL Glomerular Filtration Rate Calc 94 100 100 >90 mL/min BUN/Creatinine Ratio 9.0 L 9.5 L 6.8 L 10.0-20.0 Serum Glucose 70 L 79 87 74-106 mg/dL Calcium Level 8.8 9.1 8.5 L 8.7-10.4 mg/dL Lactic Acid Level 1.0 0.4-2.0 mmol/L White Blood Count 10.8 # 15.4 H 4.4-10.8 10^3/uL Red Blood Count 4.68 4.72 4.0-5.20 10^6/uL Hemoglobin 14.5 14.8 # 12.2-16.2 g/dL Hematocrit 42.9 43.5 # 36.0-46.0 % Mean Corpuscular Volume 91.7 92.1 80.0-100.0 fL Mean Corpuscular Hemoglobin 31.0 31.2 28.0-32.0 pg Mean Corpuscular Hemoglobin Concent 33.8 33.9 32.0-36.0 g/dL Red Cell Distribution Width 13.5 13.2 11.8-14.3 % Platelet Count 316 318 140-450 10^3/uL Mean Platelet Volume 7.1 7.1 6.9-10.8 fL Neutrophils (%) (Auto) 65.5 76.8 37.0-80.0 % Lymphocytes (%) (Auto) 24.2 13.0 10.0-50.0 % Monocytes (%) (Auto) 9.1 9.5 0.0-12.0 % Eosinophils (%) (Auto) 0.9 0.4 0.0-7.0 % Basophils (%) (Auto) 0.3 0.3 0.0-2.0 % Neutrophils # (Auto) 7.1 11.8 H 1.6-8.6 10 ^3/uL Lymphocytes # (Auto) 2.6 2.0 0.4-5.4 10 ^3/uL Monocytes # (Auto) 1.0 1.5 H 0-1.3 10 ^3/uL Eosinophils # (Auto) 0.1 0.1 0-0.8 10 ^3/uL Basophils # (Auto) 0 0 0-0.2 10 ^3/uL Nucleated Red Blood Cells 0.1 0.1 % Total Bilirubin 0.4 0.8 0.2-1.0 mg/dL Aspartate Amino Transferase (AST) 17 24 13-40 U/L Alanine Aminotransferase (ALT) 17 22 7-40 U/L Alkaline Phosphatase 99 107 46-116 U/L Total Protein 6.5 6.4 5.7-8.2 g/dL Albumin 3.7 3.6 3.2-4.8 g/dL Test 12/25/24 09:50 12/25/24 07:00 12/25/24 06:43 Range/Units Lactic Acid Level 1.0 0.4-2.0 mmol/L Total Bilirubin 0.5 0.2-1.0 mg/dL Aspartate Amino Transferase (AST) 39 13-40 U/L Alanine Aminotransferase (ALT) 19 7-40 U/L Alkaline Phosphatase 117 H 46-116 U/L Lipase 55 H 12-53 U/L White Blood Count 15.1 H 4.4-10.8 10^3/uL Red Blood Count 5.61 H 4.0-5.20 10^6/uL Hemoglobin 17.6 H 12.2-16.2 g/dL Hematocrit 52.4 H 36.0-46.0 % Mean Corpuscular Volume 93.5 80.0-100.0 fL Mean Corpuscular Hemoglobin 31.4 28.0-32.0 pg Mean Corpuscular Hemoglobin Concent 33.6 32.0-36.0 g/dL Red Cell Distribution Width 13.4 11.8-14.3 % Platelet Count 380 140-450 10^3/uL Mean Platelet Volume 6.9 6.9-10.8 fL Neutrophils (%) (Auto) 87.3 H 37.0-80.0 % Lymphocytes (%) (Auto) 8.9 L 10.0-50.0 % Monocytes (%) (Auto) 3.6 0.0-12.0 % Eosinophils (%) (Auto) 0.0 0.0-7.0 % Basophils (%) (Auto) 0.2 0.0-2.0 % Neutrophils # (Auto) 13.1 H 1.6-8.6 10 ^3/uL Lymphocytes # (Auto) 1.3 0.4-5.4 10 ^3/uL Monocytes # (Auto) 0.5 0-1.3 10 ^3/uL Eosinophils # (Auto) 0 0-0.8 10 ^3/uL Basophils # (Auto) 0 0-0.2 10 ^3/uL Nucleated Red Blood Cells 0.1 % Sodium Level 140 136-145 mmol/L Potassium Level 4.3 3.5-5.1 mmol/L Chloride Level 106 98-107 mmol/L Carbon Dioxide Level 23 20-31 mmol/L Anion Gap 11 5-15 Blood Urea Nitrogen 5 L 9-23 mg/dL Creatinine 0.96 0.550-1.02 mg/dL Glomerular Filtration Rate Calc 73 >90 mL/min BUN/Creatinine Ratio 5.2 L 10.0-20.0 Serum Glucose 123 H 74-106 mg/dL Calcium Level 10.3 8.7-10.4 mg/dL Urine Color Light-brown Yellow Urine Clarity Ex.turbid Clear Urine pH 8.0 5.0-9.0 Urine Specific [place] 1.020 1.001-1.035 Urine Protein 1+ H Negative Urine Ketones Negative Negative Urine Blood 1+ H Negative /uL Urine Nitrite Negative Negative Urine Bilirubin Negative Negative Urine Urobilinogen 2 H Negative mg/dL Urine Leukocyte Esterase Negative Negative /uL Urine RBC 13 0 - 4 /hpf Urine Microscopic WBC 2 0-5 /HPF Urine Squamous Epithelial Cells None seen <5 /hpf Urine Amorphous Crystals Mod None Seen /hpf Urine Bacteria None seen None Seen /hpf Urine Mucus Few None Seen Urine Glucose Normal Normal mg/dL Microbiology Date/Time Source Procedure Growth Status 12/25/24 06:43 Voided Urine Urine Culture - Final Complete Assessment Acute kidney injury secondary to vancomycin nephrotoxicity Vancomycin toxicity Abdominal pain Bilateral non obstructing kidney stones Microhematuria Metabolic acidosis Bradycardia REC: Closely monitor fluids and lytes Avoid nephrotoxins Lawton's catheter Strict I&O's Discontinue vancomycin IVF 1/2 NS with sodium bicarb 50 mEq/L @ 120 cc/hr Low dose dopamine Renal diet GI consult Cardiology consult Will continue to follow Patient seen and examined by myself. I discussed my plan of care with the patient and primary nurse at the bedside I would like to thank Dr. Viramontes for the consult, will follow up Plan discussed with: Patient (Acute kidney injury secondary to vancomycin nephrotoxincity) CARLTON PARHAM MD Dec 30, 2024 15:45
--- NOTE | 2024-12-30 15:56 | DVH ---
Indication: re-eval interval changes , abd pain. Technique: CT axial images of the abdomen and pelvis are obtained without contrast. Coronal and sagit phyllis reformats were obtained. Radiation Dose Information: CTDI volume is 16.37 mGy. Dose-length product is 980.18 mGy*cm Comparison: CT CT AB PEL WO CON-NO ORAL OR IV on DOS: 12/25/24 FINDINGS: There is limited interpretation of the abdomen and pelvis without administration of intravenous contr ast. The lung bases demonstrate tiny bilateral pleural effusions. Adrenal glands, spleen, pancreas and liver unremarkable in shape. Cholelithiasis. Gallbladder hyper density/sludge. The right kidney demonstrates no hydronephrosis. 8 mm nonobstructing right renal calculus. Left kidney demonstrates no hydronephrosis. Punctate nonobstructing left renal calculus measuring 2 mm. Stomach partially distended. Small bowel loops are normal in caliber. Moderate volume stool throughout the colon. Normal appendix. Abdominal aortic atherosclerotic disease. Intrauterine device. Left ovarian/ adnexal cystic lesion m easuring 2.4 cm. No free pelvic fluid. No inguinal lymphadenopathy. [id number] bilateral sacroiliac degenerative joint disease. Mild thoracolumbar degenerative dis c disease. Right T10 sclerosis. IMPRESSION: Limited evaluation without contrast. Cholelithiasis and gallbladder hyperdensity/sludge. Overall the gallbladder is more hyperdense than on the previous CT scan which could indicate increased sludge formation since the previous examinatio n. HIDA scan can be obtained to further evaluate and exclude cholecystitis. Tiny bilateral pleural effusions. Nonobstructing right renal calculus measuring 8 mm. Punctate nonobstructing left renal calculus 2 mm. Atherosclerotic disease. Moderate volume stool in the colon. Intrauterine device. Left ovarian/ adnexal cystic lesion measuring 2.4 cm. Right T10 sclerosis measuring 1.5 cm in the region pedicle/lamina. Recommend MRI Thoracic spine with and without contrast and correlation with risk factors to exclude osteoblastic metastases. Other findings as described.
[2024-12-30] MEDS: DOPamine 1600MCG/ML D5W 250 ML IV SCH (17:00)
[2024-12-30 17:02] LABS: Magnesium 2.1 mg/dL (1.6-2.6)
--- NOTE | 2024-12-30 17:17 | DVHPN2 ---
Progress Note Date Seen: Dec 30, 2024 Resident Creating Document: DEXTER WEBB RESIDENT Medical Necessity Reason Pt with a Central, PICC or Fol: No Subjective Review of Systems Patient continues to have nausea No vomiting Reports diffuse abdominal pain more in the epigastric area Objective vital signs Vital Sign Date Time Temp Pulse Resp B/P (MAP) Pulse Ox O2 Delivery O2 Flow Rate FiO2 12/30/24 16:50 97.4 56 16 117/71 (86) 95 97.4 12/30/24 08:00 Room Air* 0 21 Total Intake and Output 12/29/24 12/29/24 12/30/24 15:00 23:00 07:00 Intake Total 250 ml 2200 ml Balance 250 ml 2200 ml medications Current Medications Medications Dose Ordered Sig/Sacha Route Start Time Stop Time Status Last Admin Dose Admin Acetaminophen/ Hydrocodone Bitart 1 tab Q4HP PRN PO 12/25/24 09:45 12/29/24 22:00 1 TAB Ondansetron HCl 4 mg Q4HP PRN IV 12/25/24 09:45 12/30/24 12:03 4 MG Acetaminophen 650 mg Q6HP PRN PO 12/25/24 09:45 Levetiracetam 2,000 mg HS PO 12/25/24 22:00 12/29/24 22:00 2,000 MG Patient Own Medication 200 mg HS PO 12/26/24 22:00 12/29/24 22:09 200 MG Sucralfate 1 gm BID@0600,2200 PO 12/26/24 22:00 12/30/24 06:11 1 GM Ketorolac Tromethamine 15 mg Q6HPRN PRN IV 12/27/24 08:15 01/01/25 08:14 12/29/24 17:24 15 MG Diphenhydramine HCl 50 mg Q6HP PRN PO 12/27/24 14:00 12/30/24 01:20 50 MG Lorazepam 1 mg Q5MINP PRN IV 12/30/24 07:00 Pantoprazole Sodium 40 mg BID IV 12/30/24 22:00 UNV Famotidine 20 mg EOD IV 12/30/24 22:00 Piperacillin Sod/ Tazobactam Sod 100 ml @ 25 mls/hr Q12H IV 12/31/24 02:00 Sodium Bicarbonate 50 ml/ Sodium Chloride 1,050 ml @ 120 mls/hr Q8H45M IV 12/30/24 15:45 Dopamine HCl/ Dextrose 250 ml @ 6.18 mls/hr Q24H IV 12/30/24 15:45 Examination Gen - no pallor, no scleral icterus Skin - Patients skin is warm and dry. HEENT - normocephalic, atraumatic, dry mucous membranes. Neck - supple, no lymphadenopathy Pulmonary - B/L equal breath sounds cardiovascular - regular S1,S2 heard GI - soft abdomen with tenderness to palpation in the right upper quadrant in the epigastric region. Bowel sounds normoactive. Neurological - Patient is alert and oriented x4, following commands laboratory and microbiology Laboratory Tests 12/30/24 05:57 Test 12/30/24 05:57 Range/Units Serum Glucose 72 L 74-106 mg/dL Microbiology Date/Time Source Procedure Growth Status 12/28/24 18:41 Abdomen Gram Stain - Final Resulted 12/28/24 18:41 Abdomen Wound Culture - Preliminary Resulted 12/27/24 11:31 Blood Blood Culture - Preliminary NO GROWTH AFTER 72 HOURS OF INCUBATION. Resulted 12/25/24 06:43 Voided Urine Urine Culture - Final Complete Problem List/Assessment/Plan Problem List/Assessment/Plan Acute intractable abdominal pain Acute intractable nausea vomiting Possible gastritis Cholelithiasis with questionable Cholecystitis Hepatic steatosis KEYONNA likely due to vancomycin toxicity Plan - continue Protonix and Carafate - clear liquid diet - NPO after midnight - EGD tomorrow - IV antibiotics - patient may benefit from HIDA scan to rule out possible cholecystitis - IV fluids - avoid nephrotoxins Plan discussed with Dr. Villatoro Plan discussed with: Patient, Other (REJI John) Dietary Evaluation Review Recommendations by RD: Dietary education by RD Comments: 1.Advance to cardiac diet when medically feasible 2.Encourage optimal PO intake 3.Refer to outpatient RD for weight management 4.Follow-up with gastroenterology and neurology 5.Continue to monitor I&O, labs, and skin integrity Expected Outcomes/Goals: 1.appetite and labs to improve 2.diet to advance 3.gradual wt loss 4.f/u in 3-5 days DEXTER WEBB RESIDENT Dec 30, 2024 17:17
[2024-12-30] MEDS: SODIUM BICARB 50mEq/50ml Vial 50 ML in SOD CHL 0.45% 1,000 ML IV SCH (18:37)
--- NOTE | 2024-12-30 20:01 | DVHSR ---
APPROVED REPORT EXAM: Two-dimensional and M-mode echocardiogram with Doppler and color Doppler. Blood Pressure: 113/56 mmHg INDICATION ECG TWI Bradycardia RISK FACTORS Height: 5'2", Weight: 181 DIMENSIONS LVDd4.5 (3.8-5.7cm)LA (2D)3.2 (1.9-4.0cm)Aortic Root3.0 (2.0-3.7cm) LVDs2.9 (2.5-4.0cm)LA (MM) (1.9-4.0cm)Aortic Cusp Exc1.6 (1.5-2.0cm) EF (%) 65.0 (55-70%)Rt. Atrium3.5 (1.9-4.0cm)Asc. Aorta cm IVSd0.9 (0.7-1.1cm)RV (D) (1.8-2.4cm) PWd1.0 (0.7-1.1cm) Mitral Valve MitralMitral Stenosis E wave1.05m/sMV Mean GR.mmHg A wave0.93m/sMV Peak GR.mmHg E/A ratio1.12D MVAcm2 DECEL [id number] 1/2 Timems Aortic Valve Aortic ValveAortic Stenosis V11.00m/Jian Mean GR.5mmHg V21.52m/Jian Peak GR.9mmHg LVOT Diameter1.8 (1.8-2.4cm)Doppler AVA1.67cm2 Pulmonic Valve V20.94m/s Tricuspid Valve TR Velocity2.52m/s [id number] Conclusion LV EF IS 70% AND IS NORMAL NORMAL VALVES NORMAL RV FUNCTION NO EFFUSION
[2024-12-30] MEDS: FAMOTIDINE (10MG/ML) 2ML VL IV SCH (21:47)
[2024-12-30] MEDS ORDERED: PANTOPRAZOLE 40 MG/10 ML VIAL INJ IV SCH (22:00)
[2024-12-31] VITALS (10 sets, daily range): BP systolic 125–146; BP diastolic 63–79; PULSE 46–58; RESP 12–20; TEMP 97.2–98.4; O2SAT 95–98
--- NOTE | 2024-12-31 01:14 | DVHINCON2 ---
Date Seen: Dec 30, [address] Viramontes Reason for Consultation Bradycardia History of Present Illness This is a 49-year-old female with a past medical history of seizure disorder ho presented to the ED with complaints of abdominal pain associated with nausea and vomiting. On admission, she was noted to be hypertensive. Subsequently, she developed hypotension. Workup revealed findings consistent with early sepsis. CT abdomen demonstrated only cholelithiasis without cholecystitis. The patient was started on broad-spectrum antibiotics (vancomycin and Zosyn). During hospitalization, the patient was also found to have bradycardia, prompting cardiology consultation. Review of telemetry and EKG showed normal sinus rhythm without conduction abnormalities. The lowest recorded heart rate was 42 bpm 12/28/24. Notably, the patient was receiving Midodrine 10 mg three times daily for prior hypotension. She reports that she refused Midodrine starting December 28, after which her heart rate slowly improved. Renal function has worsened with serum creatinine of 4 mg/dL (baseline normal at admission), normal BUN. Pending nephrology consultation. The patient remains hemodynamically stable, afebrile, and asymptomatic from a cardiac standpoint. Family History: FH: breast cancer FH: liver cancer Allergies: Coded Allergies: NO KNOWN ALLERGIES (Unverified , 12/25/24) Home Meds Reported Medications Zonisamide (Zonisamide) 100 Mg Cap, 200 MG PO HS, CAP 12/25/24 Levetiracetam (KEPPRA TABLET) 500 Mg Tb, 2000 MG PO HS, TAB 12/25/24 Current Medications Current Medications Medications (Trade) Dose Ordered Sig/Sacha Route PRN Reason Start Time Stop Time Status Last Admin Lorazepam (Ativan Inj) 1 mg Q5MINP PRN IV SEIZURES 12/30/24 07:00 Pantoprazole Sodium (Protonix) 40 mg BID IV 12/30/24 22:00 UNV Famotidine (Pepcid Injection) 20 mg EOD IV 12/30/24 22:00 12/30/24 21:47 Piperacillin Sod/ Tazobactam Sod 100 ml @ 25 mls/hr Q12H IV 12/31/24 02:00 Sodium Bicarbonate 50 ml/ Sodium Chloride 1,050 ml @ 120 mls/hr Q8H45M IV 12/30/24 15:45 12/30/24 18:37 Dopamine HCl/ Dextrose 250 ml @ 6.18 mls/hr Q24H IV 12/30/24 15:45 12/30/24 17:00 Review of Systems Constitutional: denies: chills, diaphoresis, fatigue, fever, malaise, sweats, weakness, others EENTM: denies: blurred vision, double vision, ear bleeding, ear discharge, ear drainage, ear pain, ear ringing, eye pain, eye redness, hearing loss, mouth pain, mouth swelling, nasal discharge, nose bleeding, nose congestion, nose pain, photophobia, tearing, throat pain, throat swelling, voice changes, others Respiratory: denies: cough, hemoptysis, orthopnea, SOB at rest, shortness of breath, SOB with excertion, stridor, wheezing, others Cardiovascular: denies: chest pain, dizzy spells, diaphoresis, Dyspnea on e xertion, edema, irregular heart beat, left arm pain, lightheadedness, palpitations, PND, syncope, others Gastrointestinal: reports: abdominal pain (Epigastric), nausea, vomiting; denies: abdomen distended, blood streaked bowels, constipated, diarrhea, dysphagia, difficulty swallowing, hematemesis, melena, poor appetite, poor fluid intake, rectal bleeding, rectal pain, others Genitourinary: denies: abnormal vagina bleeding, burning, dyspareunia, dysuria, flank pain, frequency, hematuria, incontinence, pain, , vagina disc harge, urgency, others Neurological: denies: dizziness, fainting, headache, left sided numbness, left sided weakness, numbness, paresthesia, pre-existing deficit, right sided numbness, right sided weakness, seizure, speech problems, tingling, tremors, weakness, others Musculoskeletal: denies: back pain, gout, joint pain, joint swelling, muscle pain, muscle stiffness, neck pain, others Integumetry: denies: bruises, change in color, change in hair/nails, dryness, laceration, lesions, lumps, rash, wounds, others Allergic/Immunocompromised: denies: Difficulty Healing, Frequent Infections, Hives, Itching, others Hematologic/Lymphatic: denies: anemia, blood clots, easy bleeding, easy bruising, swollen glands, others Endocrine: denies: excessive hunger, excessive sweating, excessive thirst, excessive urination, flushing, intolerance to cold, intolerance to heat, unexplained weight gain, unexplained weight loss, others Psychiatric: denies: anxiety, bipolar disorder, depression, hopeless, panic disorder, schizophrenia, sleepless, suicidal, others All Other Systems: Reviewed and Negative Vital Signs Vital Signs Date Time Temp Pulse Resp B/P (MAP) Pulse Ox O2 Delivery O2 Flow Rate FiO2 12/30/24 21:00 98.3 57 18 113/62 (79) 94 98.3 12/30/24 19:51 Room Air* 0 21 Physical Exam GENERAL: Alert and oriented x 3. No acute distress. EYES: PERRL, EOMI. Anicteric. HENT: Moist mucous membranes. LUNGS: Clear to auscultation bilaterally. CARDIOVASCULAR: Regular rate and rhythm. ABDOMEN: Soft, non-tender and non-distended. EXTREMITIES: No edema. NEUROLOGIC: No focal neurological deficits. SKIN: Warm, dry. Labs/Diagnostic Data Labs Test 12/30/24 16:31 12/30/24 05:57 12/28/24 22:44 12/27/24 20:40 Range/Units Uric Acid 5.4 3.1-7.8 mg/dL Phosphorus Level 3.7 2.4-5.1 mg/dL Magnesium Level 2.1 1.6-2.6 mg/dL Vitamin D 25-Hydroxy 12.3 L 30.0-100 ng/mL Parathyroid Hormone (Intact) 94.4 H 18.4-80.1 pg/mL White Blood Count 13.2 #H 4.4-10.8 10^3/uL Red Blood Count 4.60 4.0-5.20 10^6/uL Hemoglobin 14.4 12.2-16.2 g/dL Hematocrit 42.8 36.0-46.0 % Mean Corpuscular Volume 93.0 80.0-100.0 fL Mean Corpuscular Hemoglobin 31.3 28.0-32.0 pg Mean Corpuscular Hemoglobin Concent 33.6 32.0-36.0 g/dL Red Cell Distribution Width 13.4 11.8-14.3 % Platelet Count 322 140-450 10^3/uL Mean Platelet Volume 7.0 6.9-10.8 fL Neutrophils (%) (Auto) 73.3 37.0-80.0 % Lymphocytes (%) (Auto) 15.4 10.0-50.0 % Monocytes (%) (Auto) 9.7 0.0-12.0 % Eosinophils (%) (Auto) 1.2 0.0-7.0 % Basophils (%) (Auto) 0.4 0.0-2.0 % Neutrophils # (Auto) 9.7 H 1.6-8.6 10 ^3/uL Lymphocytes # (Auto) 2.0 0.4-5.4 10 ^3/uL Monocytes # (Auto) 1.3 0-1.3 10 ^3/uL Eosinophils # (Auto) 0.2 0-0.8 10 ^3/uL Basophils # (Auto) 0.1 0-0.2 10 ^3/uL Nucleated Red Blood Cells 0.1 % Sodium Level 141 136-145 mmol/L Potassium Level 4.2 3.5-5.1 mmol/L Chloride Level 109 H 98-107 mmol/L Carbon Dioxide Level 18 L 20-31 mmol/L Anion Gap 14 5-15 Blood Urea Nitrogen 22 9-23 mg/dL Creatinine 4.20 H 0.550-1.02 mg/dL Glomerular Filtration Rate Calc 12 >90 mL/min BUN/Creatinine Ratio 5.3 L 10.0-20.0 Serum Glucose 72 L 74-106 mg/dL Calcium Level 8.5 L 8.7-10.4 mg/dL B-Type Natriuretic Peptide 284.73 0-100 pg/mL Random Vancomycin Level 22.3 H 5-10 ug/mL Vancomycin Level Trough 30.4 *H 5-10 ug/mL Urine Test Negative Negative Test 12/27/24 11:50 12/27/24 05:07 12/25/24 09:50 12/25/24 06:43 Range/Units Lactic Acid Level 1.0 0.4-2.0 mmol/L Total Bilirubin 0.4 0.2-1.0 mg/dL Aspartate Amino Transferase (AST) 17 13-40 U/L Alanine Aminotransferase (ALT) 17 7-40 U/L Alkaline Phosphatase 99 46-116 U/L Total Protein 6.5 5.7-8.2 g/dL Albumin 3.7 3.2-4.8 g/dL Lipase 55 H 12-53 U/L Urine Color Light-brown Yellow Urine Clarity Ex.turbid Clear Urine pH 8.0 5.0-9.0 Urine Specific [place] 1.020 1.001-1.035 Urine Protein 1+ H Negative Urine Ketones Negative Negative Urine Blood 1+ H Negative /uL Urine Nitrite Negative Negative Urine Bilirubin Negative Negative Urine Urobilinogen 2 H Negative mg/dL Urine Leukocyte Esterase Negative Negative /uL Urine RBC 13 0 - 4 /hpf Urine Microscopic WBC 2 0-5 /HPF Urine Squamous Epithelial Cells None seen <5 /hpf Urine Amorphous Crystals Mod None Seen /hpf Urine Bacteria None seen None Seen /hpf Urine Mucus Few None Seen Urine Glucose Normal Normal mg/dL Microbiology Date/Time Source Procedure Growth Status 12/28/24 18:41 Abdomen Gram Stain - Final Resulted 12/28/24 18:41 Abdomen Wound Culture - Preliminary Resulted 12/27/24 11:31 Blood Blood Culture - Preliminary NO GROWTH AFTER 72 HOURS OF INCUBATION. Resulted 12/25/24 06:43 Voided Urine Urine Culture - Final Complete Assessment Bradycardia, likely secondary to Midodrine temporal correlation with initiation and resolution after discontinuation. Sepsis (improving) likely intra-abdominal source. Acute kidney injury. Seizure disorder stable on current antiepileptic regimen. Plan/Recommendation I agree with your ongoing assessment and care of plan. Patient has been seen by Elizabeth Sinclair, Resident on my behalf. We have discussed the plan with the patient. Discontinue Midodrine; monitor HR and BP. Continue telemetry while inpatient. Consider outpatient event monitor if recurrent bradycardia or symptoms. Educate patient on monitoring HR (Apple Watch or equivalent). Manage KEYONNA per primary team and nephrology; avoid nephrotoxins. Cardiology to follow peripherally; no further acute intervention needed. Additional plan as per the hospital course. Plan discussed with: Patient NYHA Physical activity limitations: Class1(None)absent sob, Date of Service: Dec 30, 2024 Billing Provider: JENNIFER SNELL MD Cardiology Common Codes: [id number] INP/OBS CARE (High) Cardiology Consultation Codes: [id number] CONSULT <45MIN JENNIFER SNELL MD Dec 31, 2024 01:14
[2024-12-31] MEDS: PIPERACILLIN-TAZOB 3.375GM 100 ML IV SCH (01:30)
[2024-12-31] MEDS: LORazepam 2MG/ML-1ML VIAL IV PRN (02:37)
[2024-12-31 07:23] LABS: Hematocrit 42.7 % (36.0-46.0); Hemoglobin 14.8 g/dL (12.2-16.2); Mean Corpuscular Hemoglobin 31.9 pg (28.0-32.0); Mean Corpuscular Volume 91.8 fL (80.0-100.0); Nucleated Red Blood Cells % 0.0 %
[2024-12-31 07:37] LABS: Alanine Aminotransferase 26 U/L (7-40); Albumin 3.3 g/dL (3.2-4.8); Alkaline Phosphatase 108 U/L (46-116); Anion Gap 13 (5-15); BUN/Creatinine Ratio 3.6 (10.0-20.0); Blood Urea Nitrogen 20 mg/dL (9-23); Calcium 8.9 mg/dL (8.7-10.4); Chloride 106 mmol/L (98-107); Potassium 3.6 mmol/L (3.5-5.1); Sodium 139 mmol/L (136-145); Total Protein 6.2 g/dL (5.7-8.2)
[2024-12-31 07:38] LABS: Bilirubin, Total 0.5 mg/dL (0.2-1.0)
[2024-12-31 07:40] LABS: Carbon Dioxide 20 mmol/L (20-31); Glucose 106 mg/dL (74-106)
[2024-12-31 07:44] LABS: INR 1.0 (0.9-1.15); Partial Thromboplastin Time 29.0 SEC (24.5-34.5); Prothrombin Time 10.6 sec (9.3-11.8)
--- NOTE | 2024-12-31 07:52 | DVH ---
INDICATION: preop/pain TECHNIQUE: Frontal view of the chest. COMPARISON: US ECHO 2D MODE CARDIAC DOP on DOS: 12/30/24, XY KUB ABDOMEN SINGLE VIEW on DOS: 12/27/24 FINDINGS: . The heart and mediastinal contours are grossly unremarkable. There is no evidence of pleural disease. The lungs are clear. The bony structures of the chest are intact without fracture. IMPRESSION: 1. No evidence of acute disease.
--- NOTE | 2024-12-31 09:59 | DVHPN2 ---
Reviewed: Care Plan, H&P, Labs, Medications, Previous Orders Changes from previous H/P or p: No Changes General: Per HPI Gastrointestinal: Nausea, Vomiting, Abdominal Pain Objective Vitals Vital Signs Date Time Temp Pulse Resp B/P (MAP) Pulse Ox O2 Delivery O2 Flow Rate FiO2 12/31/24 08:43 97.2 49 16 139/63 (88) 95 97.2 12/31/24 08:31 Room Air* 0 21 Intake/Output Intake and Output 12/31/24 07:00 Intake Total 1987.98 ml Balance 1987.98 ml Intake Oral 1100 ml IV Total 887.98 ml # Voids 4 # Bowel Movements 1 Exam GEN: Healthy appearing, well-developed, NAD. HEENT: NC/AT; MMM. CV: RRR, no m/r/g. LUNGS: CTAB, no w/r/c. ABD: Epigastrium tender to palpation, normoactive bowel sounds, EXT: skin Warm, well perfused. no rashes. No clubbing, cyanosis, or edema. NEURO: Ambulating with no limitations. No focal deficits. General Appearance: Alert, Oriented X3, Cooperative, No acute distress HEENT: Atraumatic, PERRLA, EOMI, Mucous membr. moist/pink Neck: Supple Lungs: Clear to auscultation, Normal air movement Cardiovascular: Regular rate, Normal S1, Normal S2, No murmurs, Gallops, Rubs Abdomen: Normal bowel sounds, Soft, No tenderness Neuro: Cranial nerves 3-12 NL Psych/Mental Status: Mental status NL Medications Current Medications Medications Dose Ordered Sig/Sacha Route Start Time Stop Time Status Last Admin Dose Admin Acetaminophen/ Hydrocodone Bitart 1 tab Q4HP PRN PO 12/25/24 09:45 12/29/24 22:00 1 TAB Ondansetron HCl 4 mg Q4HP PRN IV 12/25/24 09:45 12/31/24 01:53 4 MG Acetaminophen 650 mg Q6HP PRN PO 12/25/24 09:45 Levetiracetam 2,000 mg HS PO 12/25/24 22:00 12/30/24 21:37 2,000 MG Patient Own Medication 200 mg HS PO 12/26/24 22:00 12/30/24 21:38 200 MG Sucralfate 1 gm BID@0600,2200 PO 12/26/24 22:00 12/30/24 21:37 1 GM Ketorolac Tromethamine 15 mg Q6HPRN PRN IV 12/27/24 08:15 01/01/25 08:14 12/29/24 17:24 15 MG Diphenhydramine HCl 50 mg Q6HP PRN PO 12/27/24 14:00 12/30/24 01:20 50 MG Lorazepam 1 mg Q5MINP PRN IV 12/30/24 07:00 12/31/24 02:37 1 MG Pantoprazole Sodium 40 mg BID IV 12/30/24 22:00 UNV Famotidine 20 mg EOD IV 12/30/24 22:00 12/30/24 21:47 20 MG Sodium Bicarbonate 50 ml/ Sodium Chloride 1,050 ml @ 120 mls/hr Q8H45M IV 12/30/24 15:45 12/31/24 09:23 120 MLS/HR Dopamine HCl/ Dextrose 250 ml @ 6.18 mls/hr Q24H IV 12/30/24 15:45 12/30/24 17:00 6.18 MLS/HR Ceftriaxone Sodium 50 ml @ 100 mls/hr DAILY@09 IV 12/31/24 09:30 UNV Laboratory Results Laboratory Tests 12/31/24 05:24 Chemistry Test 12/30/24 16:31 12/31/24 05:24 Magnesium Level 2.1 mg/dL (1.6-2.6) Phosphorus Level 3.7 mg/dL (2.4-5.1) Albumin 3.3 g/dL (3.2-4.8) Calcium Level 8.9 mg/dL (8.7-10.4) Total Protein 6.2 g/dL (5.7-8.2) Coagulation Test 12/31/24 05:24 Prothrombin Time 10.6 sec (9.3-11.8) Prothrombin Time INR 1.00 (0.9-1.15) Activated Partial Thromboplast Time 29.0 SEC (24.5-34.5) LFT Test 12/31/24 05:24 Alanine Aminotransferase (ALT) 26 U/L (7-40) Alkaline Phosphatase 108 U/L (46-116) Aspartate Amino Transferase (AST) 36 U/L (13-40) Total Bilirubin 0.5 mg/dL (0.2-1.0) Urinalysis Test 12/25/24 06:43 12/27/24 20:40 12/31/24 09:04 Urine Amorphous Crystals Mod /hpf (None Seen) Urine Mucus Few (None Seen) Urine Test Negative (Negative) Urine Color Pending Urine Clarity Pending Urine pH Pending Urine Specific [place] Pending Urine Protein Pending Urine Ketones Pending Urine Blood Pending Urine Nitrite Pending Urine Bilirubin Pending Urine Urobilinogen Pending Urine Leukocyte Esterase Pending Urine RBC Pending Urine Microscopic WBC Pending Urine Squamous Epithelial Cells Pending Urine Bacteria Pending Urine Creatinine Pending Urine Protein/Creatinine Ratio Pending Urine Sodium Pending Urine Glucose Pending Urine Total Protein Pending Microbiology Microbiology Date/Time Source Procedure Growth Status 12/28/24 18:41 Abdomen Gram Stain - Final Resulted 12/28/24 18:41 Abdomen Wound Culture - Preliminary Resulted 12/27/24 11:31 Blood Blood Culture - Preliminary NO GROWTH AFTER 72 HOURS OF INCUBATION. Resulted 12/25/24 06:43 Voided Urine Urine Culture - Final Complete Labs and/or images reviewed: Labs reviewed by me, Image(s) reviewed by me Assessment/Plan Assessment/Plan 49-year-old female with past medical history of epilepsy who presents to the ED with abdominal pain with nausea and vomiting, with complaints radiating to the back, reports that the pain is 8/10 dull and constant. She reports that she vomited multiple times with minimal relief, food contents and now yellow in color. Patient reports that she vomited over 10 times. Patient's [id number] Carmen at the bedside. Patient denies any recent trauma or injury, recent sick contacts, recent travels, recent ingestion of spoiled food, chest pain, shortness of breath, fever, chills, lightheadedness, weakness, dizziness, diarrhea, urinary symptoms. 12/26: Patient has started having abdominal pain then started having nausea and vomiting, there was no diarrhea. Later the pain also started radiating to the back. Patient's lipase is mildly elevated. She does not take any weight loss pills,. CT was done showing cholelithiasis some nonobstructive nephrolithiasis, but no other acute processes, hepatic steatosis. Patient also had leukocytosis with left shift neutrophilia. We will start patient on ceftriaxone Flagyl for considerable possible gastroenteritis. Start Protonix IV 40, with Carafate 1 gram b.i.d.,. Continue slow IV fluids. Blood pressure low but apparently this is chronic. We will try fluid bolus. Otherwise continue antiemetics and prn pain medications, avoiding any NSAIDs., for pain we are doing Tylenol, [place], morphine, avoiding Toradol for possible PUD.. Urine . Full liquid diet. EKG. 12/27. EKG was unconcerning. Urine negative, awaiting Toradol still,. Continuing IV antibiotics, continuing Protonix and Carafate. Pain is 3/10 this morning. Pain still limited to epigastrium and right upper quadrant. No Melendrez's sign Melendrez sign negative. No guarding rigidity. We will get upright KUB, holding off GI consult at this point has pain is improving. Blood pressure low, starting midodrine 10 t.i.d., stat KUB portable, 12/30: Over weekend no procedures, GI recommended colonoscopy in hospital, we will follow up with GI today. Continuing Protonix. Continue IV antibiotics for possible gastroenteritis. Patient continues to complain of pain today awaiting in his 6. Over weekend patient noted to be bradycardic, EKG with T-wave flattening and low voltage, cardiology is consulted. We will get echo today. Patient has significant KEYONNA Monday creatinine 0.7 today creatinine 4.1, we will give bolus 1 L LR and repeat BMP. We will consider repeat CT abdomen. - keyonna likely from vanc/zosyn. stop abx. renal u/s. . for abd pain repeat CT ab. card to follow for bradycardia and flattening twaves. unclear cause of epigastric pain, gi to follow. 12/31 - doing well. still abd pain. epigastric 06/06. egd today. ct yest with possible cholecystitis. no melendrez. vs stable. will get RUQ u/s. nephro onboard giving ivf and low dose dopa for vanc nephrotoxity keyonna. gay is in now. accurate io. cards think [place] from mido which is now stopped. dec abx to ceftriaxone and flagyl. Diagnosis: Gastroenteritis, infectious etiology likely Acute gastritis PUD possible Intractable abdominal pain with nausea and vomiting Leukocytosis unclear etiology Rule out sepsis History of epilepsy Plan: For pain use Tylenol, [place], morphine Slow IV fluids after bolus Start Protonix IV 40 mg daily Carafate suspension 1 g p.o. twice daily b.i.d. Continue other home medications Urine EKG Med surge Full code Plan discussed with: Patient My Orders Orders - LEVY HOOVER MD Procedure Category Date Status Time Famotidine Injection PHA 12/30/24 In Process (Pepcid Injection) 22:00 *Dr. [facility] CONS 12/30/24 Transmitted -[place] 13:53 Kidney US 12/30/24 Resulted 14:08 Ct Ab Pel Wo Con-No CT 12/30/24 Resulted Oral Or Iv 14:08 Ceftriaxone 1gm/50ml PHA 12/31/24 Logged (Rocephin) 09:30 Abdomen Limited US 12/31/24 Logged 09:42 Date of Service: Dec 31, 2024 Billing Provider: LEVY HOOVER MD Common Visit Codes: [id number] INP/OBS CARE(HIGH) LEVY HOOVER MD Dec 31, 2024 09:59
[2024-12-31 10:08] LABS: Protein, Urine 17.3 mg/dL (1-14)
[2024-12-31 10:10] LABS: Opiate Scree,Urine Neg (NEGATIVE)
[2024-12-31 10:13] LABS: Amphetamine Screen, Urine Neg (NEGATIVE); Barbiturate Scree,Urine Neg (NEGATIVE); Benzodiazephine Screen, Urine Neg (NEGATIVE); Cannabinoid Screen, Urine Neg (NEGATIVE); Cocaine Screen, Urine Neg (NEGATIVE); Phencyclidine Screen, Urine Neg (NEGATIVE)
[2024-12-31 10:26] LABS: Urine Protein, UAD Negative (Negative)
--- NOTE | 2024-12-31 10:37 | DVHPN2 ---
Progress Note Date Seen: Dec 31, 2024 Medical Necessity Reason Pt with a Central, PICC or Fol: No Subjective Patient reports: No new complaints Other Systems: Patient seen and examined by myself today in follow-up Objective vital signs Vital Sign Date Time Temp Pulse Resp B/P (MAP) Pulse Ox O2 Delivery O2 Flow Rate FiO2 12/31/24 08:43 97.2 49 16 139/63 (88) 95 97.2 12/31/24 08:31 Room Air* 0 21 Total Intake and Output 12/30/24 12/30/24 12/31/24 15:00 23:00 07:00 Intake Total 300 ml 1687.98 ml Balance 300 ml 1687.98 ml medications Current Medications Medications Dose Ordered Sig/Sacha Route Start Time Stop Time Status Last Admin Dose Admin Acetaminophen/ Hydrocodone Bitart 1 tab Q4HP PRN PO 12/25/24 09:45 12/29/24 22:00 Ondansetron HCl 4 mg Q4HP PRN IV 12/25/24 09:45 12/31/24 01:53 Acetaminophen 650 mg Q6HP PRN PO 12/25/24 09:45 Levetiracetam 2,000 mg HS PO 12/25/24 22:00 12/30/24 21:37 Patient Own Medication 200 mg HS PO 12/26/24 22:00 12/30/24 21:38 Sucralfate 1 gm BID@0600,2200 PO 12/26/24 22:00 12/30/24 21:37 Ketorolac Tromethamine 15 mg Q6HPRN PRN IV 12/27/24 08:15 01/01/25 08:14 12/29/24 17:24 Diphenhydramine HCl 50 mg Q6HP PRN PO 12/27/24 14:00 12/30/24 01:20 Lorazepam 1 mg Q5MINP PRN IV 12/30/24 07:00 12/31/24 02:37 Pantoprazole Sodium 40 mg BID IV 12/30/24 22:00 UNV Famotidine 20 mg EOD IV 12/30/24 22:00 12/30/24 21:47 Sodium Bicarbonate 50 ml/ Sodium Chloride 1,050 ml @ 120 mls/hr Q8H45M IV 12/30/24 15:45 12/31/24 09:23 Dopamine HCl/ Dextrose 250 ml @ 6.18 mls/hr Q24H IV 12/30/24 15:45 12/30/24 17:00 Ceftriaxone Sodium 50 ml @ 100 mls/hr DAILY@09 IV 12/31/24 09:30 Examination: LUNGS:Normal, CVS:Normal, MSK:Normal laboratory and microbiology Laboratory Tests 12/31/24 05:24 Test 12/31/24 05:24 Range/Units Serum Glucose 106 74-106 mg/dL Microbiology Date/Time Source Procedure Growth Status 12/28/24 18:41 Abdomen Gram Stain - Final Resulted 12/28/24 18:41 Abdomen Wound Culture - Preliminary Resulted 12/27/24 11:31 Blood Blood Culture - Preliminary NO GROWTH AFTER 72 HOURS OF INCUBATION. 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 W/Sodium 15:45 Dopamine 1600mcg/Ml PHA 12/30/24 In Process [id number] 15:45 Linda Direct W/Reflex LAB 12/30/24 In Process To Comp. 15:52 Complement C3 & C4 LAB 12/30/24 In Process 15:52 Strict I & O ALMA 12/30/24 In Process 16:05 Communication Order ORDERS 12/31/24 Transmitted 08:55 * Radiologist Consult CONS 12/31/24 Transmitted 10:30 Ergocalciferol PHA 12/31/24 Logged (Vitamin D 50,000 10:30 Dietary Evaluation Review Recommendations by RD: Dietary education by RD Comments: 1.Advance to cardiac diet when medically feasible 2.Encourage optimal PO intake 3.Refer to outpatient RD for weight management 4.Follow-up with gastroenterology and neurology 5.Continue to monitor I&O, labs, and skin integrity Expected Outcomes/Goals: 1.appetite and labs to improve 2.diet to advance 3.gradual wt loss 4.f/u in 3-5 days CARLTON PARHAM MD Dec 31, 2024 10:37
--- NOTE | 2024-12-31 10:43 | DVH ---
EXAM DESCRIPTION: US ABDOMEN LIMITED CLINICAL HISTORY: abdominal pain specific to right upper quadrant COMPARISON: CT CT AB PEL WO CON-NO ORAL OR IV on DOS: 12/30/24, US KIDNEY on DOS: 12/30/24, XY KUB ABDOMEN SINGLE VIEW on DOS: 12/27/24, CT CT AB PEL WO CON-NO ORAL OR IV on DOS: 12/25/24 TECHNIQUE: Using real-time ultrasonography multiple images of the abdomen were obtained. FINDINGS: The liver measures 15.9 cm. No focal liver masses. The liver echongenicity is within normal limits. The partially imaged pancreas is unremarkable. Stones and sludge filling the gallbladder. No gallbladder wall thickening. No pericholecystic fluid. Negative sonographic Melendrez sign. The common bile duct measures 7 mm in diameter. There is no free intraperitoneal fluid. The right kidney measures 13 cm. 1.4 cm simple right renal cyst. Mild right pelviectasis without significant hydronephrosis. IMPRESSION: 1. Cholelithiasis and gallbladder sludge without evidence of acute cholecystitis. 2. Mild right pelviectasis without significant hydronephrosis.
[2024-12-31] MEDS: ERGOCALCIFEROL 50,000 UNIT(1.25MG) CAP PO SCH (11:14)
[2024-12-31 14:07] LABS: Anti-Nuclear Antibody Direct Negative (Negative)
--- NOTE | 2024-12-31 14:45 | DVHPNRES ---
Progress Note Date Seen: Dec 31, 2024 Resident Creating Document: FELICITA BABB RESIDENT Medical Necessity Reason Pt with a Central, PICC or Fol: No Subjective Review of Systems A 49-year-old female with a past medical history of seizure disorder presented with complaints of abdominal pain associated with nausea and vomiting. On admission, she was noted to be hypertensive. Subsequently, she developed hypotension Workup revealed findings consistent with early sepsis; CT abdomen demonstrated only cholelithiasis without cholecystitis. The patient was started on broad-spectrum antibiotics (vancomycin and Zosyn). During hospitalization, the patient was also found to have bradycardia, prompting cardiology consultation. Review of telemetry and EKG showed normal sinus rhythm without conduction abnormalities. The lowest recorded heart rate was 42 bpm 12/28/24. Notably, the patient was receiving Midodrine 10 mg three times daily for prior hypotension. She reports that she refused Midodrine starting December 28, after which her heart rate slowly improved. Renal function has worsened with serum creatinine of 4 mg/dL (baseline normal at admission), normal BUN. Pending nephrology consultation The patient remains hemodynamically stable, afebrile, and asymptomatic from a cardiac standpoint. 12/31/24: HR is 49, no acute complaints, Nephrology will do a kidney biopsy due to KEYONNA Objective vital signs Vital Sign Date Time Temp Pulse Resp B/P (MAP) Pulse Ox O2 Delivery O2 Flow Rate FiO2 12/31/24 12:52 97.5 49 16 139/79 (99) 98 97.5 12/31/24 08:31 Room Air* 0 21 Total Intake and Output 12/30/24 12/30/24 12/31/24 15:00 23:00 07:00 Intake Total 300 ml 1687.98 ml Balance 300 ml 1687.98 ml medications Current Medications Medications Dose Ordered Sig/Sacha Route Start Time Stop Time Status Last Admin Dose Admin Acetaminophen/ Hydrocodone Bitart 1 tab Q4HP PRN PO 12/25/24 09:45 12/29/24 22:00 1 TAB Ondansetron HCl 4 mg Q4HP PRN IV 12/25/24 09:45 12/31/24 01:53 4 MG Acetaminophen 650 mg Q6HP PRN PO 12/25/24 09:45 Levetiracetam 2,000 mg HS PO 12/25/24 22:00 12/30/24 21:37 2,000 MG Patient Own Medication 200 mg HS PO 12/26/24 22:00 12/30/24 21:38 200 MG Sucralfate 1 gm BID@0600,2200 PO 12/26/24 22:00 12/30/24 21:37 1 GM Diphenhydramine HCl 50 mg Q6HP PRN PO 12/27/24 14:00 12/30/24 01:20 50 MG Lorazepam 1 mg Q5MINP PRN IV 12/30/24 07:00 12/31/24 02:37 1 MG Pantoprazole Sodium 40 mg BID IV 12/30/24 22:00 UNV Famotidine 20 mg EOD IV 12/30/24 22:00 12/30/24 21:47 20 MG Sodium Bicarbonate 50 ml/ Sodium Chloride 1,050 ml @ 120 mls/hr Q8H45M IV 12/30/24 15:45 12/31/24 09:23 120 MLS/HR Dopamine HCl/ Dextrose 250 ml @ 6.18 mls/hr Q24H IV 12/30/24 15:45 12/30/24 17:00 6.18 MLS/HR Ceftriaxone Sodium 50 ml @ 100 mls/hr DAILY@09 IV 12/31/24 09:30 12/31/24 11:14 100 MLS/HR Ergocalciferol 50,000 unit Q7D PO 12/31/24 10:30 12/31/24 11:14 50,000 UNIT Metronidazole 100 ml @ 100 mls/hr Q8HR IV 12/31/24 22:00 UNV Examination General: Alert, oriented 3, no acute distress HEENT: No icterus or pallor CV: Regular rate and rhythm, no murmurs, rubs, or gallops Resp: Clear to auscultation bilaterally Abdomen: Soft, non-tender, no rebound or guarding Extremities: No edema, pulses 2+ and symmetric Neuro: No focal deficits laboratory and microbiology Laboratory Tests 12/31/24 05:24 Test 12/31/24 05:24 Range/Units Serum Glucose 106 74-106 mg/dL Microbiology Date/Time Source Procedure Growth Status 12/28/24 18:41 Abdomen Gram Stain - Final Resulted 12/28/24 18:41 Abdomen Wound Culture - Preliminary Resulted 12/27/24 11:31 Blood Blood Culture - Preliminary NO GROWTH AFTER 72 HOURS OF INCUBATION. Resulted 12/25/24 06:43 Voided Urine Urine Culture - Final Complete Problem List/Assessment/Plan Problem List/Assessment/Plan Diagnostic Studies: EKG: Normal sinus rhythm, no AV block or ischemic changes Telemetry: HR range 4287 bpm, no pauses or arrhythmias Echocardiogram: Preserved LVEF, no structural abnormalities CT Abdomen/Pelvis: Cholelithiasis, fatty liver no acute process Labs: is trending high Assessment: 1. Bradycardia, likely secondary to Midodrine temporal correlation with initiation and resolution after discontinuation: HR is 49, telemetry were reviewed 2. Sepsis (improving) likely intra-abdominal source 3. Acute kidney injury 4. Seizure disorder stable on current antiepileptic regimen. Plan: Discontinue Midodrine; monitor HR and BP. HR 49, telemetry were reviewed Nephrology advised kidney biopsy Continue telemetry while inpatient. Consider outpatient event monitor if recurrent bradycardia or symptoms. Educate patient on monitoring HR (Apple Watch or equivalent). Manage KEYONNA per primary team and nephrology; avoid nephrotoxins. Cardiology to follow peripherally; no further acute intervention needed. Case discussed with Dr Marcial Time spent on care 71 min Plan discussed with: Patient Dietary Evaluation Review Recommendations by RD: Dietary education by RD Comments: 1.Advance to cardiac diet when medically feasible 2.Encourage optimal PO intake 3.Refer to outpatient RD for weight management 4.Follow-up with gastroenterology and neurology 5.Continue to monitor I&O, labs, and skin integrity Expected Outcomes/Goals: 1.appetite and labs to improve 2.diet to advance 3.gradual wt loss 4.f/u in 3-5 days Visit Coding Cardiology RES Date of Service: Dec 31, 2024 Billing Provider: KIERRA RAMÍREZ Sr., MD Cardiology Common Codes: [id number] CARE 30-74 MIN FELICITA BABB RESIDENT Dec 31, 2024 14:45
--- NOTE | 2024-12-31 14:50 | DVHOP2 ---
Operative Report DATE OF OPERATION: 12/31/24 PROCEDURE: Upper Endoscopy with biopsy. PREOPERATIVE INDICATION: The patient is a 49 -year-old female undergoing endoscopy for epigastric pain and left upper quadrant pain POSTOPERATIVE DIAGNOSES: 1. Mild gastritis with some hyperemia erythema PROCEDURE PERFORMED BY: India Villatoro GI NURSE: Leigh SCOPE: Olympus videoendoscope. ASA CLASS: 2 PREOPERATIVE MEDICATIONS: Mac sedation, [employer] PROCEDURE IN DETAIL: After obtaining an informed consent, the patient was placed on left lateral decubitus position. The patient was then sedated with the above medications. A bite block was placed between her teeth. The endoscope was then passed through the oropharynx, into the esophagus, and through the stomach and pylorus up to the second and third part of the duodenum. The endoscope was then withdrawn. The 2nd and 3rd part of the duodenum and the duodenal bulb were normal. Duodenal biopsies were obtained The pre-pyloric area antrum and body showed mild gastritis with some hyperemia erythema. On retroflexion the fundus cardia and angularis were normal. Gastric biopsies were obtained. The endoscope was then withdrawn into the distal esophagus where she had a slightly irregular squamocolumnar junction but no significant esophagitis or hiatal hernia. The remaining distal and proximal esophagus and oropharynx were unremarkable The patient tolerated the procedure well without difficulty. COMPLICATIONS : None SPECIMENS: Duodenal biopsies Gastric biopsies DISPOSITION: Stable Transfer to floor PLAN: 1. Await for biopsy result 2. Will place pt on Protonix 40 mg p.o. daily 3. Carafate 1 g p.o. twice a day 4. DC aspirin NSAIDs smoking alcohol 5. Outpatient follow up with me in 4-6 weeks to review results and discuss fur ther management INDIA VILLATORO MD Dec 31, 2024 14:50
[2024-12-31] MEDS ORDERED: LIDOCAINE 2% (LOCAL ANESTH.) PF 5ml SDV ONE (15:34)
[2024-12-31] MEDS ORDERED: PROPOFOL 10 MG/ML 20 ML IV ONE (15:34)
[2024-12-31] MEDS: PANTOPRAZOLE 40 MG TAB PO SCH (18:24)
--- NOTE | 2024-12-31 23:51 | DVHPN2 ---
Consult Progress Note Date Seen: Dec 31, 2024 Subjective Other Systems: Patient was seen and evaluated in follow up. HR is 49, no acute complaints, Nephrology will do a kidney biopsy due to KEYONNA. WBC 14.3, POTATO GRADER 5.50. Chest x-ray shows NAD. Abdominal US: cholelithiasis and gallbladder sludge without evidence of acute cholecystitis. Mild right pelviectasis without significant hydronephrosis. Telemetry reviewed. Objective vital signs Vital Sign Date Time Temp Pulse Resp B/P (MAP) Pulse Ox O2 Delivery O2 Flow Rate FiO2 12/31/24 15:45 125/64 12/31/24 15:01 Room Air 0 97 12/31/24 15:01 49 20 12/31/24 15:01 97 12/31/24 14:46 97.6 97.6 Total Intake and Output 12/30/24 12/30/24 12/31/24 15:00 23:00 07:00 Intake Total 300 ml 1687.98 ml Balance 300 ml 1687.98 ml medications Current Medications Medications Dose Ordered Sig/Sacha Route Start Time Stop Time Status Last Admin Dose Admin Acetaminophen/ Hydrocodone Bitart 1 tab Q4HP PRN PO 12/25/24 09:45 12/29/24 22:00 1 TAB Ondansetron HCl 4 mg Q4HP PRN IV 12/25/24 09:45 12/31/24 01:53 4 MG Acetaminophen 650 mg Q6HP PRN PO 12/25/24 09:45 Levetiracetam 2,000 mg HS PO 12/25/24 22:00 12/30/24 21:37 2,000 MG Patient Own Medication 200 mg HS PO 12/26/24 22:00 12/30/24 21:38 200 MG Sucralfate 1 gm BID@0600,2200 PO 12/26/24 22:00 12/30/24 21:37 1 GM Diphenhydramine HCl 50 mg Q6HP PRN PO 12/27/24 14:00 12/30/24 01:20 50 MG Lorazepam 1 mg Q5MINP PRN IV 12/30/24 07:00 12/31/24 02:37 1 MG Pantoprazole Sodium 40 mg BID IV 12/30/24 22:00 UNV Famotidine 20 mg EOD IV 12/30/24 22:00 12/30/24 21:47 20 MG Sodium Bicarbonate 50 ml/ Sodium Chloride 1,050 ml @ 120 mls/hr Q8H45M IV 12/30/24 15:45 12/31/24 09:23 120 MLS/HR Dopamine HCl/ Dextrose 250 ml @ 6.18 mls/hr Q24H IV 12/30/24 15:45 12/30/24 17:00 6.18 MLS/HR Ceftriaxone Sodium 50 ml @ 100 mls/hr DAILY@09 IV 12/31/24 09:30 12/31/24 11:14 100 MLS/HR Ergocalciferol 50,000 unit Q7D PO 12/31/24 10:30 12/31/24 11:14 50,000 UNIT Pantoprazole Sodium 40 mg BID@0600,1700 PO 12/31/24 17:00 Examination: GENERAL:Normal, HEENT:Normal, NECK:Normal, LUNGS:Normal, CVS:Normal, ABDOMEN:Normal, SKIN:Normal, NEURO:Normal laboratory and microbiology Laboratory Tests 12/31/24 05:24 Test 12/31/24 05:24 Range/Units Serum Glucose 106 74-106 mg/dL Problem List/Assessment/Plan Problem List/Assessment/Plan Problem list Bradycardia, likely secondary to Midodrine temporal correlation with initiation and resolution after discontinuation. HR is 49, telemetry were reviewed Sepsis (improving) likely intra-abdominal source. Acute kidney injury. Seizure disorder stable on current antiepileptic regimen. Plan/Recommendation Continued all current supportive medical care. Patient has been seen by Elizabeth Sinclair, Resident on my behalf. We have discussed the plan with the patient. Discontinue Midodrine; monitor HR and BP. HR 49, telemetry were reviewed. Nephrology advised kidney biopsy. Continue telemetry while inpatient. Consider outpatient event monitor if recurrent bradycardia or symptoms. Educate patient on monitoring HR (Apple Watch or equivalent). Manage KEYONNA per primary team and nephrology; avoid nephrotoxins. Cardiology to follow peripherally; no further acute intervention needed. Additional plan as per the hospital course. Plan discussed with: Patient Dietary Evaluation Review Recommendations by RD: Dietary education by RD Comments: 1.Advance to cardiac diet when medically feasible 2.Encourage optimal PO intake 3.Refer to outpatient RD for weight management 4.Follow-up with gastroenterology and neurology 5.Continue to monitor I&O, labs, and skin integrity Expected Outcomes/Goals: 1.appetite and labs to improve 2.diet to advance 3.gradual wt loss 4.f/u in 3-5 days Date of Service: Dec 31, 2024 Billing Provider: JENNIFER SNELL MD Cardiology Common Codes: [id number] HOSP CARE(High JENNIFER SNELL MD Dec 31, 2024 16:11
[2025-01-01] VITALS (8 sets, daily range): BP systolic 114–151; BP diastolic 59–81; PULSE 52–62; RESP 17–18; TEMP 97.6–98.5; O2SAT 93–96
[2025-01-01 06:12] LABS: Hematocrit 40.9 % (36.0-46.0); Hemoglobin 14.3 g/dL (12.2-16.2); Mean Corpuscular Hemoglobin 31.7 pg (28.0-32.0); Mean Corpuscular Volume 90.9 fL (80.0-100.0); Nucleated Red Blood Cells % 0.0 %
[2025-01-01 06:25] LABS: Alanine Aminotransferase 28 U/L (7-40); Alkaline Phosphatase 102 U/L (46-116); Anion Gap 14 (5-15); BUN/Creatinine Ratio 3.7 (10.0-20.0); Blood Urea Nitrogen 23 mg/dL (9-23); Chloride 105 mmol/L (98-107); Potassium 4.0 mmol/L (3.5-5.1); Sodium 139 mmol/L (136-145); Total Protein 5.9 g/dL (5.7-8.2)
[2025-01-01 06:26] LABS: Bilirubin, Total 0.3 mg/dL (0.2-1.0)
[2025-01-01 06:27] LABS: Albumin 3.1 g/dL (3.2-4.8); Calcium 8.4 mg/dL (8.7-10.4); Carbon Dioxide 20 mmol/L (20-31); Glucose 64 mg/dL (74-106)
[2025-01-01] MEDS: MIDAZOLAM HCL 2MG/2ML 2ml VIAL (1mg/ml) ONE (08:19)
[2025-01-01] MEDS: fentaNYL CITRATE 100 MCG/2 ML VL ONE (08:20)
--- NOTE | 2025-01-01 09:15 | DVH ---
US US GUIDANCE FOR NEEDLE PLACEME, HISTORY: KIDNEY BIOPSY PROCEDURE: Informed consent was obtained. Limited ultrasound of the left kidney was obtained. The overlying skin was prepped with chlorhexidine which was allowed to dry and draped in the usual sterile fashion. Time out was performed. The skin and soft tissue were infiltrated with 1% lidocaine, and IV sedation was administered. Under real-time ultrasound guidance, 1 biopsy specimen was obtained using Bio[employer] 18 gauge core biopsy needle. Post biopsy scan was performed. No immediate complication was noted. SEDATION: Dr. Lloyd Graves was personally responsible for the administration of moderate sedation during the procedure performed, including the use of an independent trained observer who had no other duties during the procedure. The drugs utilized were IV fentanyl and versed (see nursing log for details). The total time of supervision by the attending physician was approximately 30 minutes. FINDINGS: Limited intraprocedural ultrasound demonstrates biopsy needle within the lower renal cortex of left kidney. No significant procedural hematoma is noted. IMPRESSION: Ultrasound biopsy of the left kidney. Pathology results pending.
--- NOTE | 2025-01-01 09:46 | DVHPN2 ---
Reviewed: Care Plan, H&P, Labs, Medications, Previous Orders Changes from previous H/P or p: No Changes General: Per HPI Gastrointestinal: Nausea, Vomiting, Abdominal Pain Objective Vitals Vital Signs Date Time Temp Pulse Resp B/P (MAP) Pulse Ox O2 Delivery O2 Flow Rate FiO2 01/01/25 05:00 98.4 56 17 123/59 (80) 95 98.4 12/31/24 20:05 Room Air* 0 21 Intake/Output Intake and Output 01/01/25 07:00 Intake Total 3187.08 ml Output Total 1550 ml Balance 1637.08 ml Intake Oral 600 ml IV Total 2587.08 ml Output Urine Total 1550 ml # Bowel Movements 1 Exam GEN: Healthy appearing, well-developed, NAD. HEENT: NC/AT; MMM. CV: RRR, no m/r/g. LUNGS: CTAB, no w/r/c. ABD: Epigastrium tender to palpation, normoactive bowel sounds, EXT: skin Warm, well perfused. no rashes. No clubbing, cyanosis, or edema. NEURO: Ambulating with no limitations. No focal deficits. General Appearance: Alert, Oriented X3, Cooperative, No acute distress HEENT: Atraumatic, PERRLA, EOMI, Mucous membr. moist/pink Neck: Supple Lungs: Clear to auscultation, Normal air movement Cardiovascular: Regular rate, Normal S1, Normal S2, No murmurs, Gallops, Rubs Abdomen: Normal bowel sounds, Soft, No tenderness Neuro: Cranial nerves 3-12 NL Psych/Mental Status: Mental status NL Medications Current Medications Medications Dose Ordered Sig/Sacha Route Start Time Stop Time Status Last Admin Dose Admin Acetaminophen/ Hydrocodone Bitart 1 tab Q4HP PRN PO 12/25/24 09:45 12/31/24 21:18 1 TAB Ondansetron HCl 4 mg Q4HP PRN IV 12/25/24 09:45 12/31/24 20:30 4 MG Acetaminophen 650 mg Q6HP PRN PO 12/25/24 09:45 Levetiracetam 2,000 mg HS PO 12/25/24 22:00 12/31/24 21:14 2,000 MG Patient Own Medication 200 mg HS PO 12/26/24 22:00 12/31/24 21:21 200 MG Sucralfate 1 gm BID@0600,2200 PO 12/26/24 22:00 12/30/24 21:37 1 GM Diphenhydramine HCl 50 mg Q6HP PRN PO 12/27/24 14:00 12/30/24 01:20 50 MG Lorazepam 1 mg Q5MINP PRN IV 12/30/24 07:00 12/31/24 02:37 1 MG Pantoprazole Sodium 40 mg BID IV 12/30/24 22:00 UNV Famotidine 20 mg EOD IV 12/30/24 22:00 12/30/24 21:47 20 MG Dopamine HCl/ Dextrose 250 ml @ 6.18 mls/hr Q24H IV 12/30/24 15:45 12/30/24 17:00 6.18 MLS/HR Ceftriaxone Sodium 50 ml @ 100 mls/hr DAILY@09 IV 12/31/24 09:30 12/31/24 11:14 100 MLS/HR Ergocalciferol 50,000 unit Q7D PO 12/31/24 10:30 12/31/24 11:14 50,000 UNIT Sodium Bicarbonate 50 ml/ Sodium Chloride 1,050 ml @ 100 mls/hr [id number] IV 01/01/25 09:30 UNV Furosemide 80 mg DAILY IV 01/01/25 10:00 UNV Laboratory Results Laboratory Tests 01/01/25 05:05 Chemistry Test 01/01/25 05:05 Albumin 3.1 g/dL (3.2-4.8) L Calcium Level 8.4 mg/dL (8.7-10.4) L Total Protein 5.9 g/dL (5.7-8.2) LFT Test 01/01/25 05:05 Alanine Aminotransferase (ALT) 28 U/L (7-40) Alkaline Phosphatase 102 U/L (46-116) Aspartate Amino Transferase (AST) 50 U/L (13-40) H Total Bilirubin 0.3 mg/dL (0.2-1.0) Urinalysis Test 12/25/24 06:43 12/27/24 20:40 12/31/24 09:04 Urine Amorphous Crystals Mod /hpf (None Seen) Urine Mucus Few (None Seen) Urine Test Negative (Negative) Urine Color Colorless (Yellow) Urine Clarity Clear (Clear) Urine pH 6.5 (5.0-9.0) Urine Specific [place] 1.009 (1.001-1.035) Urine Protein Negative (Negative) Urine Ketones Trace (Negative) Urine Blood 2+ /uL (Negative) H Urine Nitrite Negative (Negative) Urine Bilirubin Negative (Negative) Urine Urobilinogen Normal mg/dL (Negative) Urine Leukocyte Esterase Negative /uL (Negative) Urine RBC 70 /hpf (0 - 4) Urine Microscopic WBC 4 /HPF (0-5) Urine Squamous Epithelial Cells Few /hpf (<5) Urine Bacteria Few /hpf (None Seen) H Urine Creatinine 33.46 mg/dL (30.0-125.0) Urine Protein/Creatinine Ratio 0.52 Urine Sodium 126 mmol/L (40-220) Urine Glucose Normal mg/dL (Normal) Urine Total Protein 17.3 mg/dL (1-14) H Microbiology Microbiology Date/Time Source Procedure Growth Status 12/28/24 18:41 Abdomen Gram Stain - Final Resulted 12/28/24 18:41 Abdomen Wound Culture - Preliminary Resulted 12/27/24 11:31 Blood Blood Culture - Preliminary NO GROWTH AFTER 72 HOURS OF INCUBATION. Resulted 12/25/24 06:43 Voided Urine Urine Culture - Final Complete Labs and/or images reviewed: Labs reviewed by me, Image(s) reviewed by me Assessment/Plan Assessment/Plan 49-year-old female with past medical history of epilepsy who presents to the ED with abdominal pain with nausea and vomiting, with complaints radiating to the back, reports that the pain is 8/10 dull and constant. She reports that she vomited multiple times with minimal relief, food contents and now yellow in color. Patient reports that she vomited over 10 times. Patient's [id number] Carmen at the bedside. Patient denies any recent trauma or injury, recent sick contacts, recent travels, recent ingestion of spoiled food, chest pain, shortness of breath, fever, chills, lightheadedness, weakness, dizziness, diarrhea, urinary symptoms. 12/26: Patient has started having abdominal pain then started having nausea and vomiting, there was no diarrhea. Later the pain also started radiating to the back. Patient's lipase is mildly elevated. She does not take any weight loss pills,. CT was done showing cholelithiasis some nonobstructive nephrolithiasis, but no other acute processes, hepatic steatosis. Patient also had leukocytosis with left shift neutrophilia. We will start patient on ceftriaxone Flagyl for considerable possible gastroenteritis. Start Protonix IV 40, with Carafate 1 gram b.i.d.,. Continue slow IV fluids. Blood pressure low but apparently this is chronic. We will try fluid bolus. Otherwise continue antiemetics and prn pain medications, avoiding any NSAIDs., for pain we are doing Tylenol, [place], morphine, avoiding Toradol for possible PUD.. Urine . Full liquid diet. EKG. 12/27. EKG was unconcerning. Urine negative, awaiting Toradol still,. Continuing IV antibiotics, continuing Protonix and Carafate. Pain is 3/10 this morning. Pain still limited to epigastrium and right upper quadrant. No Melendrez's sign Melendrez sign negative. No guarding rigidity. We will get upright KUB, holding off GI consult at this point has pain is improving. Blood pressure low, starting midodrine 10 t.i.d., stat KUB portable, 12/30: Over weekend no procedures, GI recommended colonoscopy in hospital, we will follow up with GI today. Continuing Protonix. Continue IV antibiotics for possible gastroenteritis. Patient continues to complain of pain today awaiting in his 6. Over weekend patient noted to be bradycardic, EKG with T-wave flattening and low voltage, cardiology is consulted. We will get echo today. Patient has significant KEYONNA Monday creatinine 0.7 today creatinine 4.1, we will give bolus 1 L LR and repeat BMP. We will consider repeat CT abdomen. - keyonna likely from vanc/zosyn. stop abx. renal u/s. . for abd pain repeat CT ab. card to follow for bradycardia and flattening twaves. unclear cause of epigastric pain, gi to follow. 12/31 - doing well. still abd pain. epigastric 06/06. egd today. ct yest with possible cholecystitis. no melendrez. vs stable. will get RUQ u/s. nephro onboard giving ivf and low dose dopa for vanc nephrotoxity keyonna. gay is in now. accurate io. cards think [place] from mido which is now stopped. dec abx to ceftriaxone and flagyl. 01/01: egd yesterday with showing only gastritis, no ulcers etc seen. cr continue worsen to 6, making some urine. continue accurate i/o. gay inserted. this am pt to get kidney bx per nephrology. continue low dose dopa and bicarb gtt, appreciate nephrology following. asymptomatic bradycardia. BP better, off midodrine. 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 twice daily b.i.d. Continue other home medications EKG prn off midodrine sp EGD. outpatient anti-acids Med surge Full code Plan discussed with: Patient My Orders Orders - LEVY HOOVER MD Procedure Category Date Status Time Abdomen Limited US 12/31/24 Resulted 09:42 Us Guidance For US 01/01/25 Resulted Needle Placeme 08:04 Date of Service: Jan 01, 2025 Billing Provider: LEVY HOOVER MD Common Visit Codes: [id number] INP/OBS CARE(HIGH) LEVY HOOVER MD Jan 01, 2025 09:46
--- NOTE | 2025-01-01 11:15 | DVHPNRES ---
Progress Note Date Seen: Jan 01, 2025 Resident Creating Document: FELICITA BABB RESIDENT Medical Necessity Reason Pt with a Central, PICC or Fol: No Subjective Review of Systems A 49-year-old female with a past medical history of seizure disorder presented with complaints of abdominal pain associated with nausea and vomiting. On admission, she was noted to be hypertensive. Subsequently, she developed hypotension Workup revealed findings consistent with early sepsis; CT abdomen demonstrated only cholelithiasis without cholecystitis. The patient was started on broad-spectrum antibiotics (vancomycin and Zosyn). During hospitalization, the patient was also found to have bradycardia, prompting cardiology consultation. Review of telemetry and EKG showed normal sinus rhythm without conduction abnormalities. The lowest recorded heart rate was 42 bpm 12/28/24. Notably, the patient was receiving Midodrine 10 mg three times daily for prior hypotension. She reports that she refused Midodrine starting December 28, after which her heart rate slowly improved. Renal function has worsened with serum creatinine of 4 mg/dL (baseline normal at admission), normal BUN. Pending nephrology consultation The patient remains hemodynamically stable, afebrile, and asymptomatic from a cardiac standpoint. 01/01/25: HR is 56, no acute complaints, endoscopy and kidny biopsy done yesterday, Creat trending high. Speaking with Nephrology, patient probably has ATN due to vancomycin but also an immunological component is suspected, low complement and her daughter has lupus anticoagulant positive, pending biopsy results, patient still on dopamine drip Objective vital signs Vital Sign Date Time Temp Pulse Resp B/P (MAP) Pulse Ox O2 Delivery O2 Flow Rate FiO2 01/01/25 09:00 97.6 61 18 131/63 (85) 96 97.6 12/31/24 20:05 Room Air* 0 21 Total Intake and Output 12/31/24 12/31/24 01/01/25 15:00 23:00 07:00 Intake Total 780 ml 0 ml 2407.08 ml Output Total 450 ml 1100 ml Balance 780 ml -450 ml 1307.08 ml medications Current Medications Medications Dose Ordered Sig/Sacha Route Start Time Stop Time Status Last Admin Dose Admin Acetaminophen/ Hydrocodone Bitart 1 tab Q4HP PRN PO 12/25/24 09:45 12/31/24 21:18 1 TAB Ondansetron HCl 4 mg Q4HP PRN IV 12/25/24 09:45 11/4/25 20:30 4 MG Acetaminophen 650 mg Q6HP PRN PO 12/25/24 09:45 Levetiracetam 2,000 mg HS PO 12/25/24 22:00 12/31/24 21:14 2,000 MG Patient Own Medication 200 mg HS PO 12/26/24 22:00 12/31/24 21:21 200 MG Sucralfate 1 gm BID@0600,2200 PO 12/26/24 22:00 12/30/24 21:37 1 GM Diphenhydramine HCl 50 mg Q6HP PRN PO 12/27/24 14:00 12/30/24 01:20 50 MG Lorazepam 1 mg Q5MINP PRN IV 12/30/24 07:00 12/31/24 02:37 1 MG Pantoprazole Sodium 40 mg BID IV 12/30/24 22:00 UNV Famotidine 20 mg EOD IV 12/30/24 22:00 01/01/25 09:53 20 MG Dopamine HCl/ Dextrose 250 ml @ 6.18 mls/hr Q24H IV 12/30/24 15:45 12/30/24 17:00 6.18 MLS/HR Ceftriaxone Sodium 50 ml @ 100 mls/hr DAILY@09 IV 12/31/24 09:30 01/01/25 09:53 100 MLS/HR Ergocalciferol 50,000 unit Q7D PO 12/31/24 10:30 12/31/24 11:14 50,000 UNIT Sodium Bicarbonate 50 ml/ Sodium Chloride 1,050 ml @ 100 mls/hr [id number] IV 01/01/25 09:30 Furosemide 80 mg DAILY IV 01/01/25 10:00 laboratory and microbiology Laboratory Tests 01/01/25 05:05 Test 01/01/25 05:05 Range/Units Serum Glucose 64 L 74-106 mg/dL Microbiology Date/Time Source Procedure Growth Status 12/28/24 18:41 Abdomen Gram Stain - Final Resulted 12/28/24 18:41 Abdomen Wound Culture - Preliminary Resulted 12/27/24 11:31 Blood Blood Culture - Preliminary NO GROWTH AFTER 72 HOURS OF INCUBATION. Resulted 12/25/24 06:43 Voided Urine Urine Culture - Final Complete Problem List/Assessment/Plan Problem List/Assessment/Plan Diagnostic Studies: EKG: Normal sinus rhythm, no AV block or ischemic changes Telemetry: HR range 4287 bpm, no pauses or arrhythmias Echocardiogram: Preserved LVEF, no structural abnormalities CT Abdomen/Pelvis: Cholelithiasis, fatty liver no acute process Labs: is trending high Assessment: 1. Bradycardia, likely secondary to Midodrine temporal correlation with initiation and resolution after discontinuation 2. Sepsis (improving) likely intra-abdominal source 3. Acute kidney injury- ATN due to vancomycin toxicity 4. Seizure disorder stable on current antiepileptic regimen. Plan: 01/01/25: HR is 56, no acute complaints, endoscopy and kidny biopsy done yesterday, Creat trending high. Speaking with Nephrology, patient probably has ATN due to vancomycin but also an immunological component is suspected, low complement and her daughter has lupus anticoagulant positive, pending biopsy results, patient still on dopamine drip Discontinue Midodrine; monitor HR and BP. telemetry were reviewed Continue telemetry while inpatient. Consider outpatient event monitor if recurrent bradycardia or symptoms. Educate patient on monitoring HR (Apple Watch or equivalent). Manage KEYONNA per primary team and nephrology; avoid nephrotoxins. Cardiology to follow peripherally; no further acute intervention needed. Case discussed with Dr Snell Time spent on care 71 min Plan discussed with: Patient Dietary Evaluation Review Recommendations by RD: Dietary education by RD Comments: 1.Advance to cardiac diet when medically feasible 2.Encourage optimal PO intake 3.Refer to outpatient RD for weight management 4.Follow-up with gastroenterology and neurology 5.Continue to monitor I&O, labs, and skin integrity Expected Outcomes/Goals: 1.appetite and labs to improve 2.diet to advance 3.gradual wt loss 4.f/u in 3-5 days Visit Coding Cardiology RES Date of Service: Jan 01, 2025 Billing Provider: JENNIFER SNELL MD Cardiology Common Codes: 21978-CUGCIBUQ CARE 30-74 MIN FELICITA BABB RESIDENT Jan 01, 2025 11:15 JENNIFER SNELL MD Jan 01, 2025 23:57
--- NOTE | 2025-01-01 11:43 | DVHPN2 ---
Progress Note Date Seen: Jan 01, 2025 Medical Necessity Reason Pt with a Central, PICC or Fol: No Subjective Patient reports: No new complaints Other Systems: Patient seen and examined by myself today in follow-up Objective vital signs Vital Sign Date Time Temp Pulse Resp B/P (MAP) Pulse Ox O2 Delivery O2 Flow Rate FiO2 01/01/25 09:00 97.6 61 18 131/63 (85) 96 97.6 12/31/24 20:05 Room Air* 0 21 Total Intake and Output 12/31/24 12/31/24 01/01/25 15:00 23:00 07:00 Intake Total 780 ml 0 ml 2407.08 ml Output Total 450 ml 1100 ml Balance 780 ml -450 ml 1307.08 ml medications Current Medications Medications Dose Ordered Sig/Sacha Route Start Time Stop Time Status Last Admin Dose Admin Acetaminophen/ Hydrocodone Bitart 1 tab Q4HP PRN PO 12/25/24 09:45 12/31/24 21:18 1 TAB Ondansetron HCl 4 mg Q4HP PRN IV 12/25/24 09:45 12/31/24 20:30 4 MG Acetaminophen 650 mg Q6HP PRN PO 12/25/24 09:45 Levetiracetam 2,000 mg HS PO 12/25/24 22:00 12/31/24 21:14 2,000 MG Patient Own Medication 200 mg HS PO 12/26/24 22:00 12/31/24 21:21 200 MG Sucralfate 1 gm BID@0600,2200 PO 12/26/24 22:00 12/30/24 21:37 1 GM Diphenhydramine HCl 50 mg Q6HP PRN PO 12/27/24 14:00 12/30/24 01:20 50 MG Lorazepam 1 mg Q5MINP PRN IV 12/30/24 07:00 12/31/24 02:37 1 MG Pantoprazole Sodium 40 mg BID IV 12/30/24 22:00 UNV Famotidine 20 mg EOD IV 12/30/24 22:00 01/01/25 09:53 20 MG Dopamine HCl/ Dextrose 250 ml @ 6.18 mls/hr Q24H IV 12/30/24 15:45 12/30/24 17:00 6.18 MLS/HR Ceftriaxone Sodium 50 ml @ 100 mls/hr DAILY@09 IV 12/31/24 09:30 01/01/25 09:53 100 MLS/HR Ergocalciferol 50,000 unit Q7D PO 12/31/24 10:30 12/31/24 11:14 50,000 UNIT Sodium Bicarbonate 50 ml/ Sodium Chloride 1,050 ml @ 100 mls/hr [id number] IV 01/01/25 09:30 Furosemide 80 mg DAILY IV 01/01/25 10:00 Examination: LUNGS:Normal, CVS:Normal, MSK:Normal laboratory and microbiology Laboratory Tests 01/01/25 05:05 Test 01/01/25 05:05 Range/Units Serum Glucose 64 L 74-106 mg/dL Microbiology Date/Time Source Procedure Growth Status 12/28/24 18:41 Abdomen Gram Stain - Final Resulted 12/28/24 18:41 Abdomen Wound Culture - Preliminary Resulted 12/27/24 11:31 Blood Blood Culture - Preliminary NO GROWTH AFTER 72 HOURS OF INCUBATION. 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 Vancomycin toxicity Low C4 rule out immune complex glomerulonephritis ALYSHA is negative Abdominal pain Bilateral non obstructing kidney stones Microhematuria Metabolic acidosis Bradycardia REC: Kidney function slightly worsened today Good urine output Lawton's catheter Strict I&O's Discontinue vancomycin IVF 1/2 NS with sodium bicarb 50 mEq/L @ 100 cc/hr Low dose dopamine Status post Kidney biopsy 01/01 Furosemide 80 mg IV q.day Renal diet GI consult Cardiology consult Will continue to follow closely and assess daily for the need for hemodialysis Plan discussed with: Patient My Orders My Orders Orders - CARLTON PARHAM MD Procedure Category Date Status Time Sod Chl 0.45% PHA 01/01/25 In Process (Sodi... W/Sodium 09:30 Furosemide Injection PHA 01/01/25 In Process (Lasix Injection) 10:00 Dietary Evaluation Review Recommendations by RD: Dietary education by RD Comments: 1.Advance to cardiac diet when medically feasible 2.Encourage optimal PO intake 3.Refer to outpatient RD for weight management 4.Follow-up with gastroenterology and neurology 5.Continue to monitor I&O, labs, and skin integrity Expected Outcomes/Goals: 1.appetite and labs to improve 2.diet to advance 3.gradual wt loss 4.f/u in 3-5 days CARLTON PARHAM MD Jan 01, 2025 11:43
[2025-01-01] MEDS: SODIUM BICARB 50mEq/50ml Vial 50 ML in SOD CHL 0.45% 1,000 ML IV SCH (12:05)
[2025-01-01] MEDS: FUROSEMIDE 100 MG/10ML VIAL IV SCH (12:15)
--- NOTE | 2025-01-01 12:37 | DVHPN2 ---
Progress Note - Dictate Date Seen: Jan 01, 2025 Medical Necessity Reason Pt with a Central, PICC or Fol: No Subjective No new complaints Patient is tolerating diet Abdominal pain improved ; EGD mild gastritis Patient is S/P kidney biopsy today Worsening kidney function ALYSHA negative; suspected Vancomycin toxicity Levels trending down vital signs Vital Sign Date Time Temp Pulse Resp B/P (MAP) Pulse Ox O2 Delivery O2 Flow Rate FiO2 01/01/25 12:15 131/63 01/01/25 09:00 97.6 61 18 96 97.6 12/31/24 20:05 Room Air* 0 21 Total Intake and Output 12/31/24 12/31/24 01/01/25 15:00 23:00 07:00 Intake Total 780 ml 0 ml 2407.08 ml Output Total 450 ml 1100 ml Balance 780 ml -450 ml 1307.08 ml medications Current Medications Medications Dose Ordered Sig/Sacha Route Start Time Stop Time Status Last Admin Dose Admin Acetaminophen/ Hydrocodone Bitart 1 tab Q4HP PRN PO 12/25/24 09:45 01/01/25 12:16 1 TAB Ondansetron HCl 4 mg Q4HP PRN IV 12/25/24 09:45 01/01/25 12:14 4 MG Acetaminophen 650 mg Q6HP PRN PO 12/25/24 09:45 Levetiracetam 2,000 mg HS PO 12/25/24 22:00 12/31/24 21:14 2,000 MG Patient Own Medication 200 mg HS PO 12/26/24 22:00 12/31/24 21:21 200 MG Sucralfate 1 gm BID@0600,2200 PO 12/26/24 22:00 12/30/24 21:37 1 GM Diphenhydramine HCl 50 mg Q6HP PRN PO 12/27/24 14:00 12/30/24 01:20 50 MG Lorazepam 1 mg Q5MINP PRN IV 12/30/24 07:00 12/31/24 02:37 1 MG Pantoprazole Sodium 40 mg BID IV 12/30/24 22:00 UNV Famotidine 20 mg EOD IV 12/30/24 22:00 01/01/25 09:53 20 MG Ceftriaxone Sodium 50 ml @ 100 mls/hr DAILY@09 IV 12/31/24 09:30 01/01/25 09:53 100 MLS/HR Ergocalciferol 50,000 unit Q7D PO 12/31/24 10:30 12/31/24 11:14 50,000 UNIT Sodium Bicarbonate 50 ml/ Sodium Chloride 1,050 ml @ 100 mls/hr [id number] IV 01/01/25 09:30 01/01/25 12:05 100 MLS/HR Furosemide 80 mg DAILY IV 01/01/25 10:00 01/01/25 12:15 80 MG objective Gen - no pallor, no scleral icterus Skin - Patients skin is warm and dry. HEENT - normocephalic, atraumatic, dry mucous membranes. Neck - supple, no lymphadenopathy Pulmonary - B/L equal breath sounds cardiovascular - regular S1,S2 heard GI - soft abdomen with tenderness to palpation in the right upper quadrant in the epigastric region. Bowel sounds normoactive. Neurological - Patient is alert and oriented x4, following commands laboratory and microbiology Laboratory Tests 01/01/25 05:05 Test 01/01/25 05:05 Range/Units Serum Glucose 64 L 74-106 mg/dL Problems(with codes): (1) Epigastric pain (2) Gastritis (3) Vancomycin adverse reaction (4) ARF (acute renal failure) (5) Sepsis, unspecified organism Prognosis Plan Protonix 40 mg p.o. in the morning Carafate 1 g p.o. q.h.s. Await kidney biopsy results rule out immune complex glomerulonephritis Advance diet as tolerated Dietary Evaluation Review Recommendations by RD: Dietary education by RD Comments: 1.Advance to cardiac diet when medically feasible 2.Encourage optimal PO intake 3.Refer to outpatient RD for weight management 4.Follow-up with gastroenterology and neurology 5.Continue to monitor I&O, labs, and skin integrity Expected Outcomes/Goals: 1.appetite and labs to improve 2.diet to advance 3.gradual wt loss 4.f/u in 3-5 days Plan discussed with: Patient, Other (Nurse Mary) INDIA GRIJALVA MD Jan 01, 2025 12:37
[2025-01-01] MEDS ORDERED: levETIRAcetam 500 MG TAB PO SCH (22:00)
[2025-01-01] MEDS: ALPRAZolam 0.5 MG TAB PO PRN (22:39)
[2025-01-01] MEDS: levETIRAcetam 500 MG TAB PO SCH (22:40)
--- NOTE | 2025-01-01 23:56 | DVHPN2 ---
Consult Progress Note Date Seen: Jan 01, 2025 Subjective Other Systems: Patient was seen and evaluated in follow up. HR is 56, no acute complaints, endoscopy and kidney biopsy done yesterday. Creat trending high. Speaking with Nephrology, patient probably has ATN due to vancomycin but also an immunological component is suspected, low complement and her daughter has lupus anticoagulant positive, pending biopsy results, patient still on dopamine drip. WBC 13.9, TELEVISION SCHEDULE COORDINATOR 6.27, CA 8.4. Telemetry reviewed. Objective vital signs Vital Sign Date Time Temp Pulse Resp B/P (MAP) Pulse Ox O2 Delivery O2 Flow Rate FiO2 01/01/25 12:15 131/63 01/01/25 09:00 97.6 61 18 96 97.6 12/31/24 20:05 Room Air* 0 21 Total Intake and Output 12/31/24 12/31/24 01/01/25 15:00 23:00 07:00 Intake Total 780 ml 0 ml 2407.08 ml Output Total 450 ml 1100 ml Balance 780 ml -450 ml 1307.08 ml medications Current Medications Medications Dose Ordered Sig/Sacha Route Start Time Stop Time Status Last Admin Dose Admin Acetaminophen/ Hydrocodone Bitart 1 tab Q4HP PRN PO 12/25/24 09:45 01/01/25 12:16 1 TAB Ondansetron HCl 4 mg Q4HP PRN IV 12/25/24 09:45 01/01/25 12:14 4 MG Acetaminophen 650 mg Q6HP PRN PO 12/25/24 09:45 Levetiracetam 2,000 mg HS PO 12/25/24 22:00 12/31/24 21:14 2,000 MG Patient Own Medication 200 mg HS PO 12/26/24 22:00 12/31/24 21:21 200 MG Sucralfate 1 gm BID@0600,2200 PO 12/26/24 22:00 12/30/24 21:37 1 GM Diphenhydramine HCl 50 mg Q6HP PRN PO 12/27/24 14:00 12/30/24 01:20 50 MG Lorazepam 1 mg Q5MINP PRN IV 12/30/24 07:00 12/31/24 02:37 1 MG Pantoprazole Sodium 40 mg BID IV 12/30/24 22:00 UNV Famotidine 20 mg EOD IV 12/30/24 22:00 01/01/25 09:53 20 MG Ceftriaxone Sodium 50 ml @ 100 mls/hr DAILY@09 IV 12/31/24 09:30 01/01/25 09:53 100 MLS/HR Ergocalciferol 50,000 unit Q7D PO 12/31/24 10:30 12/31/24 11:14 50,000 UNIT Sodium Bicarbonate 50 ml/ Sodium Chloride 1,050 ml @ 100 mls/hr [id number] IV 01/01/25 09:30 01/01/25 12:05 100 MLS/HR Furosemide 80 mg DAILY IV 01/01/25 10:00 01/01/25 12:15 80 MG Examination: GENERAL:Normal, LUNGS:Normal, CVS:Normal, ABDOMEN:Normal, MSK:Normal, SKIN:Normal, NEURO:Normal laboratory and microbiology Laboratory Tests 01/01/25 05:05 Test 01/01/25 05:05 Range/Units Serum Glucose 64 L 74-106 mg/dL Problem List/Assessment/Plan Problem List/Assessment/Plan Problem list Bradycardia, likely secondary to Midodrine temporal correlation with initiation and resolution after discontinuation. Sepsis (improving) likely intra-abdominal source. Acute kidney injury- ATN due to vancomycin toxicity. Seizure disorder stable on current antiepileptic regimen. Plan/Recommendation Continued all current supportive medical care. Patient has been seen by Elizabeth Sinclair, Resident on my behalf. We have discussed the plan with the patient. HR is 56, no acute complaints, endoscopy and kidney biopsy done yesterday, Creat trending high. Speaking with Nephrology, patient probably has ATN due to vancomycin but also an immunological component is suspected, low complement and her daughter has lupus anticoagulant positive, pending biopsy results, patient still on dopamine drip. Discontinue Midodrine; monitor HR and BP. telemetry were reviewed. Continue telemetry while inpatient. Consider outpatient event monitor if recurrent bradycardia or symptoms. Educate patient on monitoring HR (Apple Watch or equivalent). Manage KEYONNA per primary team and nephrology; avoid nephrotoxins. Cardiology to follow peripherally; no further acute intervention needed. Additional plan as per the hospital course. Plan discussed with: Patient Dietary Evaluation Review Recommendations by RD: Dietary education by RD Comments: 1.Advance to cardiac diet when medically feasible 2.Encourage optimal PO intake 3.Refer to outpatient RD for weight management 4.Follow-up with gastroenterology and neurology 5.Continue to monitor I&O, labs, and skin integrity Expected Outcomes/Goals: 1.appetite and labs to improve 2.diet to advance 3.gradual wt loss 4.f/u in 3-5 days Date of Service: Jan 01, 2025 Billing Provider: JENNIFER SNELL MD Cardiology Common Codes: [id number] CARE 30-74 MIN JENNIFER SNELL MD Jan 01, 2025 12:46
[2025-01-02] VITALS (7 sets, daily range): BP systolic 106–141; BP diastolic 54–79; PULSE 50–58; RESP 17–18; TEMP 97.6–98.3; O2SAT 95–97
[2025-01-02 06:01] LABS: Hematocrit 38.9 % (36.0-46.0); Hemoglobin 13.2 g/dL (12.2-16.2); Mean Corpuscular Hemoglobin 31.0 pg (28.0-32.0); Mean Corpuscular Volume 90.9 fL (80.0-100.0); Nucleated Red Blood Cells % 0.0 %
[2025-01-02 06:27] LABS: Alanine Aminotransferase 31 U/L (7-40); Alkaline Phosphatase 97 U/L (46-116); Anion Gap 12 (5-15); BUN/Creatinine Ratio 4.2 (10.0-20.0); Carbon Dioxide 23 mmol/L (20-31); Chloride 103 mmol/L (98-107); Glucose 105 mg/dL (74-106); Sodium 138 mmol/L (136-145); Total Protein 5.7 g/dL (5.7-8.2)
[2025-01-02 06:28] LABS: Albumin 3.1 g/dL (3.2-4.8); Bilirubin, Total 0.3 mg/dL (0.2-1.0); Blood Urea Nitrogen 28 mg/dL (9-23); Calcium 8.5 mg/dL (8.7-10.4); Potassium 3.4 mmol/L (3.5-5.1)
--- NOTE | 2025-01-02 10:18 | DVHPN2 ---
Progress Note - Dictate Date Seen: Jan 02, 2025 Medical Necessity Reason Pt with a Central, PICC or Fol: No Subjective No new complaints, patient is sleeping comfortably Patient is tolerating diet; one bowel movement recorded Abdominal pain improved ; EGD mild gastritis Patient is S/P kidney biopsy yesterday Worsening kidney function ALYSHA negative; suspected Vancomycin toxicity Vancomycin discontinued and levels are trending down vital signs Vital Sign Date Time Temp Pulse Resp B/P (MAP) Pulse Ox O2 Delivery O2 Flow Rate FiO2 01/02/25 09:08 127/75 01/02/25 05:00 97.7 56 17 95 97.7 01/01/25 20:00 Room Air* 0 21 Total Intake and Output 01/01/25 01/01/25 01/02/25 15:00 23:00 07:00 Intake Total 681 ml 1235 ml 150 ml Output Total 1200 ml 1000 ml Balance 681 ml 35 ml -850 ml medications Current Medications Medications Dose Ordered Sig/Sacha Route Start Time Stop Time Status Last Admin Dose Admin Acetaminophen/ Hydrocodone Bitart 1 tab Q4HP PRN PO 12/25/24 09:45 01/02/25 04:01 1 TAB Ondansetron HCl 4 mg Q4HP PRN IV 12/25/24 09:45 01/01/25 22:36 4 MG Acetaminophen 650 mg Q6HP PRN PO 12/25/24 09:45 Patient Own Medication 200 mg HS PO 12/26/24 22:00 01/01/25 22:41 200 MG Sucralfate 1 gm BID@0600,2200 PO 12/26/24 22:00 01/01/25 22:38 1 GM Diphenhydramine HCl 50 mg Q6HP PRN PO 12/27/24 14:00 12/30/24 01:20 50 MG Lorazepam 1 mg Q5MINP PRN IV 12/30/24 07:00 12/31/24 02:37 1 MG Pantoprazole Sodium 40 mg BID IV 12/30/24 22:00 UNV Famotidine 20 mg EOD IV 12/30/24 22:00 01/01/25 09:53 20 MG Ceftriaxone Sodium 50 ml @ 100 mls/hr DAILY@09 IV 12/31/24 09:30 01/02/25 09:10 100 MLS/HR Ergocalciferol 50,000 unit Q7D PO 12/31/24 10:30 12/31/24 11:14 50,000 UNIT Sodium Bicarbonate 50 ml/ Sodium Chloride 1,050 ml @ 100 mls/hr [id number] IV 01/01/25 09:30 01/02/25 09:14 100 MLS/HR Furosemide 80 mg DAILY IV 01/01/25 10:00 01/02/25 09:08 80 MG Alprazolam 0.5 mg Q6HPRN PRN PO 01/01/25 13:45 01/01/25 22:39 0.5 MG Levetiracetam 2,000 mg HS PO 01/01/25 22:00 01/01/25 22:40 2,000 MG objective Gen - no pallor, no scleral icterus Skin - Patients skin is warm and dry. HEENT - normocephalic, atraumatic, dry mucous membranes. Neck - supple, no lymphadenopathy Pulmonary - B/L equal breath sounds cardiovascular - regular S1,S2 heard GI - soft abdomen with tenderness to palpation in the right upper quadrant in the epigastric region. Bowel sounds normoactive. Neurological - Patient is alert and oriented x4, following commands laboratory and microbiology Laboratory Tests 01/02/25 05:14 Test 01/02/25 05:14 Range/Units Serum Glucose 105 74-106 mg/dL Problems(with codes): (1) Vancomycin adverse reaction (2) ARF (acute renal failure) (3) Epigastric pain (4) Gastritis Prognosis Plan Protonix 40 mg p.o. in the morning Carafate 1 g p.o. q.h.s. Await kidney biopsy results rule out immune complex glomerulonephritis ? Steroids ? Dialysis; nephrology is following and we will determine Advance diet as tolerated Dietary Evaluation Review Recommendations by RD: Dietary education by RD Comments: 1.Advance to cardiac diet when medically feasible 2.Encourage optimal PO intake 3.Refer to outpatient RD for weight management 4.Follow-up with gastroenterology and neurology 5.Continue to monitor I&O, labs, and skin integrity Expected Outcomes/Goals: 1.appetite and labs to improve 2.diet to advance 3.gradual wt loss 4.f/u in 3-5 days Plan discussed with: Patient, Other (Dr Viramontes) INDIA GRIJALVA MD Jan 02, 2025 10:18
--- NOTE | 2025-01-02 14:17 | DVHPN2 ---
Progress Note Date Seen: Jan 02, 2025 Medical Necessity Reason Pt with a Central, PICC or Fol: No Subjective Patient reports: No new complaints Other Systems: Patient seen and examined by myself today in follow-up Objective vital signs Vital Sign Date Time Temp Pulse Resp B/P (MAP) Pulse Ox O2 Delivery O2 Flow Rate FiO2 01/02/25 09:08 127/75 01/02/25 08:00 50 01/02/25 08:00 17 95 Room Air* 0 21 01/02/25 05:00 97.7 97.7 Total Intake and Output 01/01/25 01/01/25 01/02/25 15:00 23:00 07:00 Intake Total 681 ml 1235 ml 150 ml Output Total 1200 ml 1000 ml Balance 681 ml 35 ml -850 ml medications Current Medications Medications Dose Ordered Sig/Sacha Route Start Time Stop Time Status Last Admin Dose Admin Acetaminophen/ Hydrocodone Bitart 1 tab Q4HP PRN PO 12/25/24 09:45 01/02/25 04:01 1 TAB Ondansetron HCl 4 mg Q4HP PRN IV 12/25/24 09:45 01/02/25 10:56 4 MG Acetaminophen 650 mg Q6HP PRN PO 12/25/24 09:45 Patient Own Medication 200 mg HS PO 12/26/24 22:00 01/01/25 22:41 200 MG Sucralfate 1 gm BID@0600,2200 PO 12/26/24 22:00 01/01/25 22:38 1 GM Diphenhydramine HCl 50 mg Q6HP PRN PO 12/27/24 14:00 12/30/24 01:20 50 MG Lorazepam 1 mg Q5MINP PRN IV 12/30/24 07:00 12/31/24 02:37 1 MG Pantoprazole Sodium 40 mg BID IV 12/30/24 22:00 UNV Famotidine 20 mg EOD IV 12/30/24 22:00 01/01/25 09:53 20 MG Ceftriaxone Sodium 50 ml @ 100 mls/hr DAILY@09 IV 12/31/24 09:30 01/02/25 09:10 100 MLS/HR Ergocalciferol 50,000 unit Q7D PO 12/31/24 10:30 12/31/24 11:14 50,000 UNIT Sodium Bicarbonate 50 ml/ Sodium Chloride 1,050 ml @ 100 mls/hr [id number] IV 01/01/25 09:30 01/02/25 09:14 100 MLS/HR Furosemide 80 mg DAILY IV 01/01/25 10:00 01/02/25 09:08 80 MG Alprazolam 0.5 mg Q6HPRN PRN PO 01/01/25 13:45 01/02/25 10:56 0.5 MG Levetiracetam 2,000 mg HS PO 01/01/25 22:00 01/01/25 22:40 2,000 MG Examination: LUNGS:Normal, CVS:Normal, MSK:Normal laboratory and microbiology Laboratory Tests 01/02/25 05:14 Test 01/02/25 05:14 Range/Units Serum Glucose 105 74-106 mg/dL Microbiology Date/Time Source Procedure Growth Status 12/28/24 18:41 Abdomen Gram Stain - Final Complete 12/28/24 18:41 Abdomen Wound Culture - Final Complete 12/27/24 11:31 Blood Blood Culture - Final NO GROWTH AFTER 5 DAYS OF INCUBATION. 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 Vancomycin toxicity Low C4 rule out immune complex glomerulonephritis ALYSHA is negative Gastritis/duodenitis status post EGD and biopsy Bilateral non obstructing kidney stones Microhematuria Metabolic acidosis Bradycardia Hypokalemia REC: Kidney function plateau Increased urine output KCL replacement [place]'s catheter Strict I&O's Discontinue vancomycin IVF 1/2 NS with sodium bicarb 50 mEq/L @ 100 cc/hr Low dose dopamine Status post Kidney biopsy 01/01, result is pending Furosemide 80 mg IV q.day Renal diet GI consult Cardiology consult Will continue to follow closely and assess daily for the need for hemodialysis Plan discussed with: Patient My Orders My Orders Orders - CARLTON PARHAM MD Procedure Category Date Status Time Potassium Chl Jon PHA 01/02/25 Verified KCL 14:15 Dietary Evaluation Review Recommendations by RD: Dietary education by RD Comments: 1.Advance to cardiac diet when medically feasible 2.Encourage optimal PO intake 3.Refer to outpatient RD for weight management 4.Follow-up with gastroenterology and neurology 5.Continue to monitor I&O, labs, and skin integrity Expected Outcomes/Goals: 1.appetite and labs to improve 2.diet to advance 3.gradual wt loss 4.f/u in 3-5 days CARLTON PARHAM MD Jan 02, 2025 14:17
--- NOTE | 2025-01-02 14:34 | DVHPN2 ---
Reviewed: Care Plan, H&P, Labs, Medications, Previous Orders Changes from previous H/P or p: No Changes General: Per HPI Gastrointestinal: Nausea, Vomiting, Abdominal Pain Objective Vitals Vital Signs Date Time Temp Pulse Resp B/P (MAP) Pulse Ox O2 Delivery O2 Flow Rate FiO2 01/02/25 09:08 127/75 01/02/25 08:00 50 01/02/25 08:00 17 95 Room Air* 0 21 01/02/25 05:00 97.7 97.7 Intake/Output Intake and Output 01/02/25 07:00 Intake Total 2066 ml Output Total 2200 ml Balance -134 ml Intake Oral 785 ml IV Total 1281 ml Output Urine Total 2200 ml Exam GEN: Healthy appearing, well-developed, NAD. HEENT: NC/AT; MMM. CV: RRR, no m/r/g. LUNGS: CTAB, no w/r/c. ABD: Epigastrium tender to palpation, normoactive bowel sounds, EXT: skin Warm, well perfused. no rashes. No clubbing, cyanosis, or edema. NEURO: Ambulating with no limitations. No focal deficits. General Appearance: Alert, Oriented X3, Cooperative, No acute distress HEENT: Atraumatic, PERRLA, EOMI, Mucous membr. moist/pink Neck: Supple Lungs: Clear to auscultation, Normal air movement Cardiovascular: Regular rate, Normal S1, Normal S2, No murmurs, Gallops, Rubs Abdomen: Normal bowel sounds, Soft, No tenderness Neuro: Cranial nerves 3-12 NL Psych/Mental Status: Mental status NL Medications Current Medications Medications Dose Ordered Sig/Sacha Route Start Time Stop Time Status Last Admin Dose Admin Acetaminophen/ Hydrocodone Bitart 1 tab Q4HP PRN PO 12/25/24 09:45 01/02/25 04:01 1 TAB Ondansetron HCl 4 mg Q4HP PRN IV 12/25/24 09:45 01/02/25 10:56 4 MG Acetaminophen 650 mg Q6HP PRN PO 12/25/24 09:45 Patient Own Medication 200 mg HS PO 12/26/24 22:00 01/01/25 22:41 200 MG Sucralfate 1 gm BID@0600,2200 PO 12/26/24 22:00 01/01/25 22:38 1 GM Diphenhydramine HCl 50 mg Q6HP PRN PO 12/27/24 14:00 12/30/24 01:20 50 MG Lorazepam 1 mg Q5MINP PRN IV 12/30/24 07:00 12/31/24 02:37 1 MG Pantoprazole Sodium 40 mg BID IV 12/30/24 22:00 UNV Famotidine 20 mg EOD IV 12/30/24 22:00 01/01/25 09:53 20 MG Ceftriaxone Sodium 50 ml @ 100 mls/hr DAILY@09 IV 12/31/24 09:30 01/02/25 09:10 100 MLS/HR Ergocalciferol 50,000 unit Q7D PO 12/31/24 10:30 12/31/24 11:14 50,000 UNIT Sodium Bicarbonate 50 ml/ Sodium Chloride 1,050 ml @ 100 mls/hr [id number] IV 01/01/25 09:30 01/02/25 09:14 100 MLS/HR Furosemide 80 mg DAILY IV 01/01/25 10:00 01/02/25 09:08 80 MG Alprazolam 0.5 mg Q6HPRN PRN PO 01/01/25 13:45 01/02/25 10:56 0.5 MG Levetiracetam 2,000 mg HS PO 01/01/25 22:00 01/01/25 22:40 2,000 MG Potassium Chloride 100 ml @ 50 mls/hr Q2H IV 01/02/25 14:15 01/02/25 20:14 UNV Laboratory Results Laboratory Tests 01/02/25 05:14 Chemistry Test 01/02/25 05:14 Albumin 3.1 g/dL (3.2-4.8) L Calcium Level 8.5 mg/dL (8.7-10.4) L Total Protein 5.7 g/dL (5.7-8.2) LFT Test 01/02/25 05:14 Alanine Aminotransferase (ALT) 31 U/L (7-40) Alkaline Phosphatase 97 U/L (46-116) Aspartate Amino Transferase (AST) 43 U/L (13-40) H Total Bilirubin 0.3 mg/dL (0.2-1.0) Urinalysis Test 12/25/24 06:43 12/27/24 20:40 12/31/24 09:04 Urine Amorphous Crystals Mod /hpf (None Seen) Urine Mucus Few (None Seen) Urine Test Negative (Negative) Urine Color Colorless (Yellow) Urine Clarity Clear (Clear) Urine pH 6.5 (5.0-9.0) Urine Specific [place] 1.009 (1.001-1.035) Urine Protein Negative (Negative) Urine Ketones Trace (Negative) Urine Blood 2+ /uL (Negative) H Urine Nitrite Negative (Negative) Urine Bilirubin Negative (Negative) Urine Urobilinogen Normal mg/dL (Negative) Urine Leukocyte Esterase Negative /uL (Negative) Urine RBC 70 /hpf (0 - 4) Urine Microscopic WBC 4 /HPF (0-5) Urine Squamous Epithelial Cells Few /hpf (<5) Urine Bacteria Few /hpf (None Seen) H Urine Creatinine 33.46 mg/dL (30.0-125.0) Urine Protein/Creatinine Ratio 0.52 Urine Sodium 126 mmol/L (40-220) Urine Glucose Normal mg/dL (Normal) Urine Total Protein 17.3 mg/dL (1-14) H Microbiology Microbiology Date/Time Source Procedure Growth Status 12/28/24 18:41 Abdomen Gram Stain - Final Complete 12/28/24 18:41 Abdomen Wound Culture - Final Complete 12/27/24 11:31 Blood Blood Culture - Final NO GROWTH AFTER 5 DAYS OF INCUBATION. Complete 12/25/24 06:43 Voided Urine Urine Culture - Final Complete Labs and/or images reviewed: Labs reviewed by me, Image(s) reviewed by me Assessment/Plan Assessment/Plan 49-year-old female with past medical history of epilepsy who presents to the ED with abdominal pain with nausea and vomiting, with complaints radiating to the back, reports that the pain is 8/10 dull and constant. She reports that she vomited multiple times with minimal relief, food contents and now yellow in color. Patient reports that she vomited over 10 times. Patient's [id number] Carmen at the bedside. Patient denies any recent trauma or injury, recent sick contacts, recent travels, recent ingestion of spoiled food, chest pain, shortness of breath, fever, chills, lightheadedness, weakness, dizziness, diarrhea, urinary symptoms. 12/26: Patient has started having abdominal pain then started having nausea and vomiting, there was no diarrhea. Later the pain also started radiating to the back. Patient's lipase is mildly elevated. She does not take any weight loss pills,. CT was done showing cholelithiasis some nonobstructive nephrolithiasis, but no other acute processes, hepatic steatosis. Patient also had leukocytosis with left shift neutrophilia. We will start patient on ceftriaxone Flagyl for considerable possible gastroenteritis. Start Protonix IV 40, with Carafate 1 gram b.i.d.,. Continue slow IV fluids. Blood pressure low but apparently this is chronic. We will try fluid bolus. Otherwise continue antiemetics and prn pain medications, avoiding any NSAIDs., for pain we are doing Tylenol, [place], morphine, avoiding Toradol for possible PUD.. Urine . Full liquid diet. EKG. 12/27. EKG was unconcerning. Urine negative, awaiting Toradol still,. Continuing IV antibiotics, continuing Protonix and Carafate. Pain is 3/10 this morning. Pain still limited to epigastrium and right upper quadrant. No Melendrez's sign Melendrez sign negative. No guarding rigidity. We will get upright KUB, holding off GI consult at this point has pain is improving. Blood pressure low, starting midodrine 10 t.i.d., stat KUB portable, 12/30: Over weekend no procedures, GI recommended colonoscopy in hospital, we will follow up with GI today. Continuing Protonix. Continue IV antibiotics for possible gastroenteritis. Patient continues to complain of pain today awaiting in his 6. Over weekend patient noted to be bradycardic, EKG with T-wave flattening and low voltage, cardiology is consulted. We will get echo today. Patient has significant KEYONNA Monday creatinine 0.7 today creatinine 4.1, we will give bolus 1 L LR and repeat BMP. We will consider repeat CT abdomen. - keyonna likely from vanc/zosyn. stop abx. renal u/s. . for abd pain repeat CT ab. card to follow for bradycardia and flattening twaves. unclear cause of epigastric pain, gi to follow. 12/31 - doing well. still abd pain. epigastric 10. egd today. ct yest with possible cholecystitis. no melendrez. vs stable. will get RUQ u/s. nephro onboard giving ivf and low dose dopa for vanc nephrotoxity keyonna. gay is in now. accurate io. cards think [place] from mido which is now stopped. dec abx to ceftriaxone and flagyl. 01/01: egd yesterday with showing only gastritis, no ulcers etc seen. cr continue worsen to 6, making some urine. continue accurate i/o. gay inserted. this am pt to get kidney bx per nephrology. continue low dose dopa and bicarb gtt, appreciate nephrology following. asymptomatic bradycardia. BP better, off midodrine. 01/02: Creatinine reaching plateau, delta rise of creatinine is decreasing. Went from 6.2-6.6 today. Nephrology following, only with the bicarb drip now, dopamine is off. Keeping antibiotics only ceftriaxone Flagyl. Zosyn is off vanc is off. Patient today complaining of diarrhea and bleeding and fecal incontinence? , hemoglobin looks stable went from 14.3-13.2, we will keep a close eye on that. Patient says she has vaginal bleed, early menses onset? , we will continue to follow creatinine daily. Diagnosis: Gastroenteritis, infectious etiology likely keyonna due to vancomycin nephrotoxicity Acute gastritis , s/p upper endoscopy 12/31/24 PUD possible Intractable abdominal pain with nausea and vomiting Leukocytosis unclear etiology Rule out sepsis History of epilepsy Plan: For pain use Tylenol, [place], morphine Start pepcid Carafate suspension 1 g p.o. twice daily b.i.d. Continue other home medications EKG prn off midodrine sp EGD. outpatient anti-acids Med surge Full code Plan discussed with: Patient My Orders Orders - LEVY HOOVER MD Procedure Category Date Status Time Levetiracetam Tablet PHA 01/01/25 In Process (Keppra Tablet) 22:00 Date of Service: Jan 02, 2025 Billing Provider: LEVY HOOVER MD Common Visit Codes: 97539-[id number] INP/OBS CARE(HIGH) LEVY HOOVER MD Jan 02, 2025 14:34
[2025-01-02] MEDS: POTASSIUM CHL 20MEQ/100ML 100 ML IV SCH (15:14)
--- NOTE | 2025-01-02 18:17 | DVH ---
Technique: Real-time ultrasound images through the pelvis using a transabdominal transducer. Indication: r/o intrauterine of bleed Comparison: CT abdomen pelvis from 01/19/2025 Findings: The uterus measures 10.5 cm. The endometrial stripe measures 6 mm. Intrauterine device which is oral poorly characterized. Right ovary measures 4.1 x 2.4 x 2.1 cm. Normal flow on color doppler images. No focal masses are identified. Right ovarian cyst measuring 1.9 cm with simple features. Left ovary measures 3.1 x 1.7 x 2.7 cm. Normal flow on color doppler images. No focal masses are identified. Left ovarian cyst with simple features measuring 1.8 cm. There is no significant free fluid in the pelvis. Impression: Intrauterine device with location overall poorly characterized. However on the previous CT, this appears to be positioned appropriately near the fundal region Endometrial thickness of 6 mm. For patient with active menstrual cycles, this is within normal limits. Correlate clinically. Bilateral ovarian cysts.
--- NOTE | 2025-01-02 19:35 | DVHPN2 ---
Progress Note - Dictate Date Seen: Jan 02, 2025 Medical Necessity Reason Pt with a Central, PICC or Fol: No Subjective Patient was seen and evaluated in follow up. Patient is complaining of left sided back pain. Patient remains bradycardic in the 50's on the air sampling and monitoring. K 3.4, BUN 28, UPPER TRIMMER 6.64, AST 43. Pelvic US shows an intrauterine device with location overall poorly characterized. However on the previous CT, this appears to be positioned appropriately near the fundal region. Endometrial thickness of 6 mm and bilateral ovarian cysts. Telemetry reviewed. vital signs Vital Sign Date Time Temp Pulse Resp B/P (MAP) Pulse Ox O2 Delivery O2 Flow Rate FiO2 01/02/25 17:52 97.7 54 17 141/79 (99) 97 97.7 01/02/25 08:00 Room Air* 0 21 Total Intake and Output 01/01/25 01/01/25 01/02/25 15:00 23:00 07:00 Intake Total 681 ml 1235 ml 150 ml Output Total 1200 ml 1000 ml Balance 681 ml 35 ml -850 ml medications Current Medications Medications Dose Ordered Sig/Sacha Route Start Time Stop Time Status Last Admin Dose Admin Acetaminophen/ Hydrocodone Bitart 1 tab Q4HP PRN PO 12/25/24 09:45 01/02/25 17:14 1 TAB Ondansetron HCl 4 mg Q4HP PRN IV 12/25/24 09:45 01/02/25 10:56 4 MG Acetaminophen 650 mg Q6HP PRN PO 12/25/24 09:45 Patient Own Medication 200 mg HS PO 12/26/24 22:00 01/01/25 22:41 200 MG Sucralfate 1 gm BID@0600,2200 PO 12/26/24 22:00 01/01/25 22:38 1 GM Diphenhydramine HCl 50 mg Q6HP PRN PO 12/27/24 14:00 12/30/24 01:20 50 MG Lorazepam 1 mg Q5MINP PRN IV 12/30/24 07:00 12/31/24 02:37 1 MG Pantoprazole Sodium 40 mg BID IV 12/30/24 22:00 UNV Famotidine 20 mg EOD IV 12/30/24 22:00 01/01/25 09:53 20 MG Ceftriaxone Sodium 50 ml @ 100 mls/hr DAILY@09 IV 12/31/24 09:30 01/02/25 09:10 100 MLS/HR Ergocalciferol 50,000 unit Q7D PO 12/31/24 10:30 12/31/24 11:14 50,000 UNIT Sodium Bicarbonate 50 ml/ Sodium Chloride 1,050 ml @ 100 mls/hr [id number] IV 01/01/25 09:30 01/02/25 09:14 100 MLS/HR Furosemide 80 mg DAILY IV 01/01/25 10:00 01/02/25 09:08 80 MG Alprazolam 0.5 mg Q6HPRN PRN PO 01/01/25 13:45 01/02/25 10:56 0.5 MG Levetiracetam 2,000 mg HS PO 01/01/25 22:00 01/01/25 22:40 2,000 MG Potassium Chloride 100 ml @ 50 mls/hr Q2H IV 01/02/25 14:15 01/02/25 20:14 01/02/25 18:00 50 MLS/HR objective GENERAL: Alert and oriented x 3. No acute distress. EYES: PERRL, EOMI. Anicteric. HENT: Moist mucous membranes. LUNGS: Clear to auscultation bilaterally. CARDIOVASCULAR: Regular rate and rhythm. ABDOMEN: Soft, non-tender and non-distended. EXTREMITIES: No edema. NEUROLOGIC: No focal neurological deficits. SKIN: Warm, dry. laboratory and microbiology Laboratory Tests 01/02/25 05:14 Test 01/02/25 05:14 Range/Units Serum Glucose 105 74-106 mg/dL Problem List Bradycardia, likely secondary to Midodrine temporal correlation with initiation and resolution after discontinuation. Sepsis (improving) likely intra-abdominal source. Acute kidney injury- ATN due to vancomycin toxicity. Seizure disorder stable on current antiepileptic regimen. Assessment/Plan Continued all current supportive medical care. [place] for pain management. IV antibiotics as ordered. Diuretics with Lasix. Additional plan as per the hospital course. Dietary Evaluation Review Recommendations by RD: Dietary education by RD Comments: 1.Advance to cardiac diet when medically feasible 2.Encourage optimal PO intake 3.Refer to outpatient RD for weight management 4.Follow-up with gastroenterology and neurology 5.Continue to monitor I&O, labs, and skin integrity Expected Outcomes/Goals: 1.appetite and labs to improve 2.diet to advance 3.gradual wt loss 4.f/u in 3-5 days Plan discussed with: Patient JENNIFER SNELL MD Jan 02, 2025 18:16
[2025-01-03] VITALS (8 sets, daily range): BP systolic 114–152; BP diastolic 62–78; PULSE 47–55; RESP 16–18; TEMP 97.6–98.5; O2SAT 95–97
[2025-01-03] MEDS: POTASSIUM CHL 20MEQ/100ML 100 ML IV SCH (03:28)
[2025-01-03 05:56] LABS: Hematocrit 39.8 % (36.0-46.0); Hemoglobin 13.6 g/dL (12.2-16.2); Mean Corpuscular Hemoglobin 31.3 pg (28.0-32.0); Mean Corpuscular Volume 91.4 fL (80.0-100.0); Nucleated Red Blood Cells % 0.0 %
[2025-01-03 06:16] LABS: Alanine Aminotransferase 31 U/L (7-40); Alkaline Phosphatase 94 U/L (46-116); Anion Gap 12 (5-15); BUN/Creatinine Ratio 4.6 (10.0-20.0); Carbon Dioxide 22 mmol/L (20-31); Chloride 105 mmol/L (98-107); Glucose 80 mg/dL (74-106); Sodium 139 mmol/L (136-145); Total Protein 5.8 g/dL (5.7-8.2)
[2025-01-03 06:28] LABS: Albumin 3.2 g/dL (3.2-4.8); Bilirubin, Total 0.2 mg/dL (0.2-1.0); Blood Urea Nitrogen 31 mg/dL (9-23); Calcium 8.5 mg/dL (8.7-10.4); Potassium 3.3 mmol/L (3.5-5.1)
--- NOTE | 2025-01-03 10:56 | DVHPN2 ---
Progress Note Date Seen: Jan 03, 2025 Medical Necessity Reason Pt with a Central, PICC or Fol: No Subjective Patient reports: No new complaints Other Systems: Patient seen and examined by myself today in follow-up Objective vital signs Vital Sign Date Time Temp Pulse Resp B/P (MAP) Pulse Ox O2 Delivery O2 Flow Rate FiO2 01/03/25 10:19 114/65 01/03/25 09:00 97.6 53 16 95 97.6 01/02/25 20:00 Room Air* 0 21 Total Intake and Output 01/02/25 01/02/25 01/03/25 15:00 23:00 07:00 Intake Total 50 ml 950 ml 220 ml Output Total 1100 ml 1050 ml Balance 50 ml -150 ml -830 ml medications Current Medications Medications Dose Ordered Sig/Sacha Route Start Time Stop Time Status Last Admin Dose Admin Acetaminophen/ Hydrocodone Bitart 1 tab Q4HP PRN PO 12/25/24 09:45 01/02/25 21:46 1 TAB Ondansetron HCl 4 mg Q4HP PRN IV 12/25/24 09:45 01/02/25 23:44 4 MG Acetaminophen 650 mg Q6HP PRN PO 12/25/24 09:45 Patient Own Medication 200 mg HS PO 12/26/24 22:00 01/02/25 21:35 200 MG Sucralfate 1 gm BID@0600,2200 PO 12/26/24 22:00 01/01/25 22:38 1 GM Diphenhydramine HCl 50 mg Q6HP PRN PO 12/27/24 14:00 12/30/24 01:20 50 MG Lorazepam 1 mg Q5MINP PRN IV 12/30/24 07:00 12/31/24 02:37 1 MG Pantoprazole Sodium 40 mg BID IV 12/30/24 22:00 UNV Famotidine 20 mg EOD IV 12/30/24 22:00 01/03/25 10:19 20 MG Ceftriaxone Sodium 50 ml @ 100 mls/hr DAILY@09 IV 12/31/24 09:30 01/03/25 09:04 100 MLS/HR Ergocalciferol 50,000 unit Q7D PO 12/31/24 10:30 12/31/24 11:14 50,000 UNIT Sodium Bicarbonate 50 ml/ Sodium Chloride 1,050 ml @ 100 mls/hr [id number] IV 01/01/25 09:30 01/02/25 09:14 100 MLS/HR Furosemide 80 mg DAILY IV 01/01/25 10:00 01/03/25 10:19 80 MG Alprazolam 0.5 mg Q6HPRN PRN PO 01/01/25 13:45 01/02/25 23:44 0.5 MG Levetiracetam 2,000 mg HS PO 01/01/25 22:00 01/02/25 21:35 2,000 MG Saccharomyces Boulardii 250 mg DAILY PO 01/04/25 10:00 UNV Examination: LUNGS:Normal, CVS:Normal, MSK:Normal laboratory and microbiology Laboratory Tests 01/03/25 04:30 Test 01/03/25 04:30 Range/Units Serum Glucose 80 74-106 mg/dL Microbiology Date/Time Source Procedure Growth Status 12/28/24 18:41 Abdomen Gram Stain - Final Complete 12/28/24 18:41 Abdomen Wound Culture - Final Complete 12/27/24 11:31 Blood Blood Culture - Final NO GROWTH AFTER 5 DAYS OF INCUBATION. 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 q.week Renal diet GI consult Cardiology consult Will continue to follow closely and assess daily for the need for hemodialysis Plan discussed with: Patient Dietary Evaluation Review Recommendations by RD: Dietary education by RD Comments: 1.Advance to cardiac diet when medically feasible 2.Encourage optimal PO intake 3.Refer to outpatient RD for weight management 4.Follow-up with gastroenterology and neurology 5.Continue to monitor I&O, labs, and skin integrity Expected Outcomes/Goals: 1.appetite and labs to improve 2.diet to advance 3.gradual wt loss 4.f/u in 3-5 days CARLTON PARHAM MD Jan 03, 2025 10:56
[2025-01-03] MEDS: POTASSIUM EFFERVESENT TAB 25 MEQ PO SCH (11:43)
--- NOTE | 2025-01-03 12:40 | DVHPN2 ---
Reviewed: Care Plan, H&P, Labs, Medications, Previous Orders Changes from previous H/P or p: No Changes General: Per HPI Gastrointestinal: Nausea, Vomiting, Abdominal Pain Objective Vitals Vital Signs Date Time Temp Pulse Resp B/P (MAP) Pulse Ox O2 Delivery O2 Flow Rate FiO2 01/03/25 10:19 114/65 01/03/25 09:00 97.6 53 16 95 97.6 01/02/25 20:00 Room Air* 0 21 Intake/Output Intake and Output 01/03/25 07:00 Intake Total 1220 ml Output Total 2150 ml Balance -930 ml Intake Oral 570 ml IV Total 650 ml Output Urine Total 2150 ml # Bowel Movements 2 Exam GEN: Healthy appearing, well-developed, NAD. HEENT: NC/AT; MMM. CV: RRR, no m/r/g. LUNGS: CTAB, no w/r/c. ABD: Epigastrium tender to palpation, normoactive bowel sounds, EXT: skin Warm, well perfused. no rashes. No clubbing, cyanosis, or edema. NEURO: Ambulating with no limitations. No focal deficits. General Appearance: Alert, Oriented X3, Cooperative, No acute distress HEENT: Atraumatic, PERRLA, EOMI, Mucous membr. moist/pink Neck: Supple Lungs: Clear to auscultation, Normal air movement Cardiovascular: Regular rate, Normal S1, Normal S2, No murmurs, Gallops, Rubs Abdomen: Normal bowel sounds, Soft, No tenderness Neuro: Cranial nerves 3-12 NL Psych/Mental Status: Mental status NL Medications Current Medications Medications Dose Ordered Sig/Sacha Route Start Time Stop Time Status Last Admin Dose Admin Acetaminophen/ Hydrocodone Bitart 1 tab Q4HP PRN PO 12/25/24 09:45 01/02/25 21:46 1 TAB Ondansetron HCl 4 mg Q4HP PRN IV 12/25/24 09:45 01/03/25 11:43 4 MG Acetaminophen 650 mg Q6HP PRN PO 12/25/24 09:45 Patient Own Medication 200 mg HS PO 12/26/24 22:00 01/02/25 21:35 200 MG Sucralfate 1 gm BID@0600,2200 PO 12/26/24 22:00 01/01/25 22:38 1 GM Diphenhydramine HCl 50 mg Q6HP PRN PO 12/27/24 14:00 12/30/24 01:20 50 MG Lorazepam 1 mg Q5MINP PRN IV 12/30/24 07:00 12/31/24 02:37 1 MG Pantoprazole Sodium 40 mg BID IV 12/30/24 22:00 UNV Famotidine 20 mg EOD IV 12/30/24 22:00 01/03/25 10:19 20 MG Ceftriaxone Sodium 50 ml @ 100 mls/hr DAILY@09 IV 12/31/24 09:30 01/03/25 09:04 100 MLS/HR Ergocalciferol 50,000 unit Q7D PO 12/31/24 10:30 12/31/24 11:14 50,000 UNIT Sodium Bicarbonate 50 ml/ Sodium Chloride 1,050 ml @ 100 mls/hr [id number] IV 01/01/25 09:30 01/02/25 09:14 100 MLS/HR Furosemide 80 mg DAILY IV 01/01/25 10:00 01/03/25 10:19 80 MG Alprazolam 0.5 mg Q6HPRN PRN PO 01/01/25 13:45 01/02/25 23:44 0.5 MG Levetiracetam 2,000 mg HS PO 01/01/25 22:00 01/02/25 21:35 2,000 MG Saccharomyces Boulardii 250 mg DAILY PO 01/04/25 10:00 Potassium Bicarbonate 25 meq Q2H PO 01/03/25 11:02 01/03/25 13:03 01/03/25 11:43 25 MEQ Laboratory Results Laboratory Tests 01/03/25 04:30 Chemistry Test 01/03/25 04:30 Albumin 3.2 g/dL (3.2-4.8) Calcium Level 8.5 mg/dL (8.7-10.4) L Total Protein 5.8 g/dL (5.7-8.2) LFT Test 01/03/25 04:30 Alanine Aminotransferase (ALT) 31 U/L (7-40) Alkaline Phosphatase 94 U/L (46-116) Aspartate Amino Transferase (AST) 38 U/L (13-40) Total Bilirubin 0.2 mg/dL (0.2-1.0) Urinalysis Test 12/25/24 06:43 10/31/25 20:40 12/31/24 09:04 Urine Amorphous Crystals Mod /hpf (None Seen) Urine Mucus Few (None Seen) Urine Test Negative (Negative) Urine Color Colorless (Yellow) Urine Clarity Clear (Clear) Urine pH 6.5 (5.0-9.0) Urine Specific [place] 1.009 (1.001-1.035) Urine Protein Negative (Negative) Urine Ketones Trace (Negative) Urine Blood 2+ /uL (Negative) H Urine Nitrite Negative (Negative) Urine Bilirubin Negative (Negative) Urine Urobilinogen Normal mg/dL (Negative) Urine Leukocyte Esterase Negative /uL (Negative) Urine RBC 70 /hpf (0 - 4) Urine Microscopic WBC 4 /HPF (0-5) Urine Squamous Epithelial Cells Few /hpf (<5) Urine Bacteria Few /hpf (None Seen) H Urine Creatinine 33.46 mg/dL (30.0-125.0) Urine Protein/Creatinine Ratio 0.52 Urine Sodium 126 mmol/L (40-220) Urine Glucose Normal mg/dL (Normal) Urine Total Protein 17.3 mg/dL (1-14) H Microbiology Microbiology Date/Time Source Procedure Growth Status 12/28/24 18:41 Abdomen Gram Stain - Final Complete 12/28/24 18:41 Abdomen Wound Culture - Final Complete 12/27/24 11:31 Blood Blood Culture - Final NO GROWTH AFTER 5 DAYS OF INCUBATION. Complete 12/25/24 06:43 Voided Urine Urine Culture - Final Complete Labs and/or images reviewed: Labs reviewed by me, Image(s) reviewed by me Assessment/Plan Assessment/Plan 49-year-old female with past medical history of epilepsy who presents to the ED with abdominal pain with nausea and vomiting, with complaints radiating to the back, reports that the pain is 8/10 dull and constant. She reports that she vomited multiple times with minimal relief, food contents and now yellow in color. Patient reports that she vomited over 10 times. Patient's [id number] Carmen at the bedside. Patient denies any recent trauma or injury, recent sick contacts, recent travels, recent ingestion of spoiled food, chest pain, shortness of breath, fever, chills, lightheadedness, weakness, dizziness, diarrhea, urinary symptoms. 12/26: Patient has started having abdominal pain then started having nausea and vomiting, there was no diarrhea. Later the pain also started radiating to the back. Patient's lipase is mildly elevated. She does not take any weight loss pills,. CT was done showing cholelithiasis some nonobstructive nephrolithiasis, but no other acute processes, hepatic steatosis. Patient also had leukocytosis with left shift neutrophilia. We will start patient on ceftriaxone Flagyl for considerable possible gastroenteritis. Start Protonix IV 40, with Carafate 1 gram b.i.d.,. Continue slow IV fluids. Blood pressure low but apparently this is chronic. We will try fluid bolus. Otherwise continue antiemetics and prn pain medications, avoiding any NSAIDs., for pain we are doing Tylenol, [place], morphine, avoiding Toradol for possible PUD.. Urine . Full liquid diet. EKG. 12/27. EKG was unconcerning. Urine negative, awaiting Toradol still,. Continuing IV antibiotics, continuing Protonix and Carafate. Pain is 3/10 this morning. Pain still limited to epigastrium and right upper quadrant. No Melendrez's sign Melendrez sign negative. No guarding rigidity. We will get upright KUB, holding off GI consult at this point has pain is improving. Blood pressure low, starting midodrine 10 t.i.d., stat KUB portable, 12/30: Over weekend no procedures, GI recommended colonoscopy in hospital, we will follow up with GI today. Continuing Protonix. Continue IV antibiotics for possible gastroenteritis. Patient continues to complain of pain today awaiting in his 6. Over weekend patient noted to be bradycardic, EKG with T-wave flattening and low voltage, cardiology is consulted. We will get echo today. Patient has significant KEYONNA Monday creatinine 0.7 today creatinine 4.1, we will give bolus 1 L LR and repeat BMP. We will consider repeat CT abdomen. - keyonna likely from vanc/zosyn. stop abx. renal u/s. . for abd pain repeat CT ab. card to follow for bradycardia and flattening twaves. unclear cause of epigastric pain, gi to follow. 12/31 - doing well. still abd pain. epigastric 10. egd today. ct yest with possible cholecystitis. no melendrez. vs stable. will get RUQ u/s. nephro onboard giving ivf and low dose dopa for vanc nephrotoxity keyonna. gay is in now. accurate io. cards think [place] from mido which is now stopped. dec abx to ceftriaxone and flagyl. 01/01: egd yesterday with showing only gastritis, no ulcers etc seen. cr continue worsen to 6, making some urine. continue accurate i/o. gay inserted. this am pt to get kidney bx per nephrology. continue low dose dopa and bicarb gtt, appreciate nephrology following. asymptomatic bradycardia. BP better, off midodrine. 01/02: Creatinine reaching plateau, delta rise of creatinine is decreasing. Went from 6.2-6.6 today. Nephrology following, only with the bicarb drip now, dopamine is off. Keeping antibiotics only ceftriaxone Flagyl. Zosyn is off vanc is off. Patient today complaining of diarrhea and bleeding and fecal incontinence? , hemoglobin looks stable went from 14.3-13.2, we will keep a close eye on that. Patient says she has vaginal bleed, early menses onset? , we will continue to follow creatinine daily. 01/03: Ductal creatinine even lower today, hoping for plateaued for tomorrow. Creatinine go from 6.6-6.75. We will stop Carafate, stopping antibiotics. Patient is losing IV easily, we will get PICC line nurse to put in a durable IV access. Continuing IV bicarb drips per nephrology. We will start Florastor since patient's has been giving multiple antibiotics. And continue Pepcid IV 20 b.i.d.. Ultrasound yesterday with no significant findings in the uterus, likely menstrual bleed. Diarrhea is improving,? From Carafate, started Florastor. Diagnosis: Gastroenteritis, infectious etiology likely keyonna due to vancomycin nephrotoxicity Acute gastritis , s/p upper endoscopy 12/31/24 PUD possible Intractable abdominal pain with nausea and vomiting Leukocytosis unclear etiology Rule out sepsis History of epilepsy Plan: For pain use Tylenol, [place], morphine Start pepcid Carafate suspension 1 g p.o. twice daily b.i.d. Continue other home medications EKG prn off midodrine sp EGD. outpatient anti-acids Med surge Full code Plan discussed with: Patient, Other My Orders Orders - LEVY HOOVER MD Procedure Category Date Status Time Pelvic US 11/6/25 Resulted 16:57 Florastor (S. PHA 01/04/25 In Process Boulardii) (Florastor) 10:00 Potassium Effervesent PHA 01/03/25 In Process Tab (Klor-Con/Ef) 11:02 Insert Midline ORDERS 01/03/25 Transmitted 11:29 Date of Service: Jan 03, 2025 Billing Provider: LEVY HOOVER MD Common Visit Codes: [id number] INP/OBS CARE(HIGH) LEVY HOOVER MD Jan 03, 2025 12:40
[2025-01-03] MEDS: ACETAMINOPHEN 325 MG TAB PO PRN (13:43)
--- NOTE | 2025-01-03 17:21 | DVHPN2 ---
Progress Note Date Seen: Jan 03, 2025 Resident Creating Document: DEXTER WEBB RESIDENT Medical Necessity Reason Pt with a Central, PICC or Fol: No Subjective Review of Systems No new complaints Patient is tolerating diet; one bowel movement recorded Abdominal pain improved ; EGD mild gastritis Patient is S/P kidney biopsy Worsening kidney function, suspected Vancomycin toxicity Vancomycin discontinued and levels are trending down Objective vital signs Vital Sign Date Time Temp Pulse Resp B/P (MAP) Pulse Ox O2 Delivery O2 Flow Rate FiO2 01/03/25 17:00 98.0 53 18 136/70 (92) 95 98.0 01/03/25 07:30 Room Air* 0 21 Total Intake and Output 01/02/25 01/02/25 01/03/25 15:00 23:00 07:00 Intake Total 50 ml 950 ml 220 ml Output Total 1100 ml 1050 ml Balance 50 ml -150 ml -830 ml medications Current Medications Medications Dose Ordered Sig/Sacha Route Start Time Stop Time Status Last Admin Dose Admin Ondansetron HCl 4 mg Q4HP PRN IV 12/25/24 09:45 01/03/25 11:43 4 MG Acetaminophen 650 mg Q6HP PRN PO 12/25/24 09:45 01/03/25 13:43 650 MG Patient Own Medication 200 mg HS PO 12/26/24 22:00 01/02/25 21:35 200 MG Sucralfate 1 gm BID@0600,2200 PO 12/26/24 22:00 01/01/25 22:38 1 GM Diphenhydramine HCl 50 mg Q6HP PRN PO 12/27/24 14:00 12/30/24 01:20 50 MG Lorazepam 1 mg Q5MINP PRN IV 12/30/24 07:00 12/31/24 02:37 1 MG Pantoprazole Sodium 40 mg BID IV 12/30/24 22:00 UNV Famotidine 20 mg EOD IV 12/30/24 22:00 01/03/25 10:19 20 MG Ceftriaxone Sodium 50 ml @ 100 mls/hr DAILY@09 IV 12/31/24 09:30 01/03/25 09:04 100 MLS/HR Ergocalciferol 50,000 unit Q7D PO 12/31/24 10:30 12/31/24 11:14 50,000 UNIT Sodium Bicarbonate 50 ml/ Sodium Chloride 1,050 ml @ 100 mls/hr [id number] IV 01/01/25 09:30 01/03/25 13:52 100 MLS/HR Furosemide 80 mg DAILY IV 01/01/25 10:00 01/03/25 10:19 80 MG Alprazolam 0.5 mg Q6HPRN PRN PO 01/01/25 13:45 01/02/25 23:44 0.5 MG Levetiracetam 2,000 mg HS PO 01/01/25 22:00 01/02/25 21:35 2,000 MG Saccharomyces Boulardii 250 mg DAILY PO 01/04/25 10:00 Examination Gen - no pallor, no scleral icterus Skin - Patients skin is warm and dry. HEENT - normocephalic, atraumatic, dry mucous membranes. Neck - supple, no lymphadenopathy Pulmonary - B/L equal breath sounds cardiovascular - regular S1,S2 heard GI - soft abdomen with tenderness to palpation in the right upper quadrant in the epigastric region. Bowel sounds normoactive. Neurological - Patient is alert and oriented x4, following commands laboratory and microbiology Laboratory Tests 01/03/25 04:30 Test 01/03/25 04:30 Range/Units Serum Glucose 80 74-106 mg/dL Microbiology Date/Time Source Procedure Growth Status 12/28/24 18:41 Abdomen Gram Stain - Final Complete 12/28/24 18:41 Abdomen Wound Culture - Final Complete 12/27/24 11:31 Blood Blood Culture - Final NO GROWTH AFTER 5 DAYS OF INCUBATION. Complete 12/25/24 06:43 Voided Urine Urine Culture - Final Complete Problem List/Assessment/Plan Problem List/Assessment/Plan (1) Vancomycin adverse reaction (2) ARF (acute renal failure) (3) Epigastric pain (4) Gastritis Plan Protonix Carafate b.i.d. Await kidney biopsy results rule out immune complex glomerulonephritis ? Steroids ? Dialysis; nephrology is following and we will determine Continue on renal diet Plan discussed with Dr. Villatoro Plan discussed with: Patient Dietary Evaluation Review Recommendations by RD: Dietary education by RD Comments: 1.Advance to cardiac diet when medically feasible 2.Encourage optimal PO intake 3.Refer to outpatient RD for weight management 4.Follow-up with gastroenterology and neurology 5.Continue to monitor I&O, labs, and skin integrity Expected Outcomes/Goals: 1.appetite and labs to improve 2.diet to advance 3.gradual wt loss 4.f/u in 3-5 days DEXTER WEBB RESIDENT Jan 03, 2025 17:21
--- NOTE | 2025-01-03 17:41 | DVHPN2 ---
Progress Note - Dictate Date Seen: Jan 03, 2025 Medical Necessity Reason Pt with a Central, PICC or Fol: No Subjective Patient was seen and evaluated in follow up. Patient is complaining of 4/10 left sided back pain. WBC 11.7, K 3.3, BUN 31, APPLICATION INTEGRATION ENGINEER 6.75, CA 8.5. Telemetry reviewed. vital signs Vital Sign Date Time Temp Pulse Resp B/P (MAP) Pulse Ox O2 Delivery O2 Flow Rate FiO2 01/03/25 10:19 114/65 01/03/25 09:00 97.6 53 16 95 97.6 01/02/25 20:00 Room Air* 0 21 Total Intake and Output 01/02/25 01/02/25 01/03/25 15:00 23:00 07:00 Intake Total 50 ml 950 ml 220 ml Output Total 1100 ml 1050 ml Balance 50 ml -150 ml -830 ml medications Current Medications Medications Dose Ordered Sig/Sacha Route Start Time Stop Time Status Last Admin Dose Admin Acetaminophen/ Hydrocodone Bitart 1 tab Q4HP PRN PO 12/25/24 09:45 01/02/25 21:46 1 TAB Ondansetron HCl 4 mg Q4HP PRN IV 12/25/24 09:45 01/03/25 11:43 4 MG Acetaminophen 650 mg Q6HP PRN PO 12/25/24 09:45 Patient Own Medication 200 mg HS PO 12/26/24 22:00 01/02/25 21:35 200 MG Sucralfate 1 gm BID@0600,2200 PO 12/26/24 22:00 01/01/25 22:38 1 GM Diphenhydramine HCl 50 mg Q6HP PRN PO 12/27/24 14:00 12/30/24 01:20 50 MG Lorazepam 1 mg Q5MINP PRN IV 12/30/24 07:00 12/31/24 02:37 1 MG Pantoprazole Sodium 40 mg BID IV 12/30/24 22:00 UNV Famotidine 20 mg EOD IV 12/30/24 22:00 01/03/25 10:19 20 MG Ceftriaxone Sodium 50 ml @ 100 mls/hr DAILY@09 IV 12/31/24 09:30 01/03/25 09:04 100 MLS/HR Ergocalciferol 50,000 unit Q7D PO 12/31/24 10:30 12/31/24 11:14 50,000 UNIT Sodium Bicarbonate 50 ml/ Sodium Chloride 1,050 ml @ 100 mls/hr [id number] IV 01/01/25 09:30 01/02/25 09:14 100 MLS/HR Furosemide 80 mg DAILY IV 01/01/25 10:00 01/03/25 10:19 80 MG Alprazolam 0.5 mg Q6HPRN PRN PO 01/01/25 13:45 01/02/25 23:44 0.5 MG Levetiracetam 2,000 mg HS PO 01/01/25 22:00 01/02/25 21:35 2,000 MG Saccharomyces Boulardii 250 mg DAILY PO 01/04/25 10:00 Potassium Bicarbonate 25 meq Q2H PO 01/03/25 11:02 01/03/25 13:03 01/03/25 11:43 25 MEQ objective GENERAL: Alert and oriented x 3. No acute distress. EYES: PERRL, EOMI. Anicteric. HENT: Moist mucous membranes. LUNGS: Clear to auscultation bilaterally. CARDIOVASCULAR: Regular rate and rhythm. ABDOMEN: Soft, non-tender and non-distended. EXTREMITIES: No edema. NEUROLOGIC: No focal neurological deficits. SKIN: Warm, dry. laboratory and microbiology Laboratory Tests 01/03/25 04:30 Test 01/03/25 04:30 Range/Units Serum Glucose 80 74-106 mg/dL Problem List Bradycardia, likely secondary to Midodrine temporal correlation with initiation and resolution after discontinuation. Sepsis (improving) likely intra-abdominal source. Acute kidney injury- ATN due to vancomycin toxicity. Seizure disorder stable on current antiepileptic regimen. Assessment/Plan Continued all current supportive medical care. Tylenol for pain management. IV antibiotics as ordered. Diuretics with Lasix. Additional plan as per the hospital course. Dietary Evaluation Review Recommendations by RD: Dietary education by RD Comments: 1.Advance to cardiac diet when medically feasible 2.Encourage optimal PO intake 3.Refer to outpatient RD for weight management 4.Follow-up with gastroenterology and neurology 5.Continue to monitor I&O, labs, and skin integrity Expected Outcomes/Goals: 1.appetite and labs to improve 2.diet to advance 3.gradual wt loss 4.f/u in 3-5 days Plan discussed with: Patient JENNIFER SNELL MD Jan 03, 2025 12:25
[2025-01-03] MEDS ORDERED: HYDROmorphone HCL 2 MG/ML VL/or syr IV PRN (17:45)
[2025-01-03] MEDS: HYDROcodone-ACET 5/325MG TAB PO PRN (21:23)
[2025-01-04] VITALS (7 sets, daily range): BP systolic 102–146; BP diastolic 59–75; PULSE 50–60; RESP 18–20; TEMP 97.5–98.3; O2SAT 93–97
[2025-01-04 06:40] LABS: Alanine Aminotransferase 29 U/L (7-40); Alkaline Phosphatase 95 U/L (46-116); Anion Gap 14 (5-15); BUN/Creatinine Ratio 6.3 (10.0-20.0); Carbon Dioxide 24 mmol/L (20-31); Chloride 102 mmol/L (98-107); Glucose 85 mg/dL (74-106); Potassium 3.8 mmol/L (3.5-5.1); Sodium 140 mmol/L (136-145)
[2025-01-04 06:41] LABS: Albumin 3.1 g/dL (3.2-4.8); Bilirubin, Total 0.2 mg/dL (0.2-1.0); Blood Urea Nitrogen 41 mg/dL (9-23); Calcium 8.5 mg/dL (8.7-10.4); Total Protein 5.6 g/dL (5.7-8.2)
--- NOTE | 2025-01-04 08:45 | DVHPN2 ---
Reviewed: Care Plan, H&P, Labs, Medications, Previous Orders Changes from previous H/P or p: No Changes General: Per HPI Gastrointestinal: Nausea, Vomiting, Abdominal Pain Objective Vitals Vital Signs Date Time Temp Pulse Resp B/P (MAP) Pulse Ox O2 Delivery O2 Flow Rate FiO2 01/04/25 07:30 54 20 96 Room Air* 0 21 01/04/25 05:00 98.3 117/60 (79) 98.3 Intake/Output Intake and Output 01/04/25 07:00 Intake Total 4400 ml Output Total 2775 ml Balance 1625 ml Intake Oral 3050 ml IV Total 1350 ml Output Urine Total 2775 ml # Bowel Movements 1 Exam GEN: Healthy appearing, well-developed, NAD. HEENT: NC/AT; MMM. CV: RRR, no m/r/g. LUNGS: CTAB, no w/r/c. ABD: Epigastrium tender to palpation, normoactive bowel sounds, EXT: skin Warm, well perfused. no rashes. No clubbing, cyanosis, or edema. NEURO: Ambulating with no limitations. No focal deficits. General Appearance: Alert, Oriented X3, Cooperative, No acute distress HEENT: Atraumatic, PERRLA, EOMI, Mucous membr. moist/pink Neck: Supple Lungs: Clear to auscultation, Normal air movement Cardiovascular: Regular rate, Normal S1, Normal S2, No murmurs, Gallops, Rubs Abdomen: Normal bowel sounds, Soft, No tenderness Neuro: Cranial nerves 3-12 NL Psych/Mental Status: Mental status NL Medications Current Medications Medications Dose Ordered Sig/Sacha Route Start Time Stop Time Status Last Admin Dose Admin Ondansetron HCl 4 mg Q4HP PRN IV 12/25/24 09:45 01/03/25 22:58 4 MG Acetaminophen 650 mg Q6HP PRN PO 12/25/24 09:45 01/03/25 13:43 650 MG Patient Own Medication 200 mg HS PO 12/26/24 22:00 01/03/25 21:22 200 MG Sucralfate 1 gm BID@0600,2200 PO 12/26/24 22:00 01/03/25 21:21 1 GM Diphenhydramine HCl 50 mg Q6HP PRN PO 12/27/24 14:00 12/30/24 01:20 50 MG Lorazepam 1 mg Q5MINP PRN IV 12/30/24 07:00 12/31/24 02:37 1 MG Pantoprazole Sodium 40 mg BID IV 12/30/24 22:00 UNV Famotidine 20 mg EOD IV 12/30/24 22:00 01/03/25 10:19 20 MG Ceftriaxone Sodium 50 ml @ 100 mls/hr DAILY@09 IV 12/31/24 09:30 01/03/25 09:04 100 MLS/HR Ergocalciferol 50,000 unit Q7D PO 12/31/24 10:30 12/31/24 11:14 50,000 UNIT Sodium Bicarbonate 50 ml/ Sodium Chloride 1,050 ml @ 100 mls/hr [id number] IV 01/01/25 09:30 01/04/25 01:41 100 MLS/HR Furosemide 80 mg DAILY IV 01/01/25 10:00 01/03/25 10:19 80 MG Alprazolam 0.5 mg Q6HPRN PRN PO 01/01/25 13:45 01/04/25 01:51 0.5 MG Levetiracetam 2,000 mg HS PO 01/01/25 22:00 01/03/25 21:22 2,000 MG Saccharomyces Boulardii 250 mg DAILY PO 01/04/25 10:00 Acetaminophen/ Hydrocodone Bitart 1 tab Q4HPRN PRN PO 01/03/25 17:45 01/03/25 21:23 1 TAB Hydromorphone HCl 0.5 mg Q4HPRN PRN IV 01/03/25 17:45 Laboratory Results Laboratory Tests 01/03/25 04:30 01/04/25 05:46 Chemistry Test 01/04/25 05:46 Albumin 3.1 g/dL (3.2-4.8) L Calcium Level 8.5 mg/dL (8.7-10.4) L Total Protein 5.6 g/dL (5.7-8.2) L LFT Test 01/04/25 05:46 Alanine Aminotransferase (ALT) 29 U/L (7-40) Alkaline Phosphatase 95 U/L (46-116) Aspartate Amino Transferase (AST) 29 U/L (13-40) Total Bilirubin 0.2 mg/dL (0.2-1.0) Urinalysis Test 12/25/24 06:43 12/27/24 20:40 12/31/24 09:04 Urine Amorphous Crystals Mod /hpf (None Seen) Urine Mucus Few (None Seen) Urine Test Negative (Negative) Urine Color Colorless (Yellow) Urine Clarity Clear (Clear) Urine pH 6.5 (5.0-9.0) Urine Specific [place] 1.009 (1.001-1.035) Urine Protein Negative (Negative) Urine Ketones Trace (Negative) Urine Blood 2+ /uL (Negative) H Urine Nitrite Negative (Negative) Urine Bilirubin Negative (Negative) Urine Urobilinogen Normal mg/dL (Negative) Urine Leukocyte Esterase Negative /uL (Negative) Urine RBC 70 /hpf (0 - 4) Urine Microscopic WBC 4 /HPF (0-5) Urine Squamous Epithelial Cells Few /hpf (<5) Urine Bacteria Few /hpf (None Seen) H Urine Creatinine 33.46 mg/dL (30.0-125.0) Urine Protein/Creatinine Ratio 0.52 Urine Sodium 126 mmol/L (40-220) Urine Glucose Normal mg/dL (Normal) Urine Total Protein 17.3 mg/dL (1-14) H Microbiology Microbiology Date/Time Source Procedure Growth Status 12/28/24 18:41 Abdomen Gram Stain - Final Complete 12/28/24 18:41 Abdomen Wound Culture - Final Complete 12/27/24 11:31 Blood Blood Culture - Final NO GROWTH AFTER 5 DAYS OF INCUBATION. Complete 12/25/24 06:43 Voided Urine Urine Culture - Final Complete Labs and/or images reviewed: Labs reviewed by me, Image(s) reviewed by me Assessment/Plan Assessment/Plan 49-year-old female with past medical history of epilepsy who presents to the ED with abdominal pain with nausea and vomiting, with complaints radiating to the back, reports that the pain is 8/10 dull and constant. She reports that she vomited multiple times with minimal relief, food contents and now yellow in color. Patient reports that she vomited over 10 times. Patient's [id number] Carmen at the bedside. Patient denies any recent trauma or injury, recent sick contacts, recent travels, recent ingestion of spoiled food, chest pain, shortness of breath, fever, chills, lightheadedness, weakness, dizziness, diarrhea, urinary symptoms. 12/26: Patient has started having abdominal pain then started having nausea and vomiting, there was no diarrhea. Later the pain also started radiating to the back. Patient's lipase is mildly elevated. She does not take any weight loss pills,. CT was done showing cholelithiasis some nonobstructive nephrolithiasis, but no other acute processes, hepatic steatosis. Patient also had leukocytosis with left shift neutrophilia. We will start patient on ceftriaxone Flagyl for considerable possible gastroenteritis. Start Protonix IV 40, with Carafate 1 gram b.i.d.,. Continue slow IV fluids. Blood pressure low but apparently this is chronic. We will try fluid bolus. Otherwise continue antiemetics and prn pain medications, avoiding any NSAIDs., for pain we are doing Tylenol, [place], morphine, avoiding Toradol for possible PUD.. Urine . Full liquid diet. EKG. 12/27. EKG was unconcerning. Urine negative, awaiting Toradol still,. Continuing IV antibiotics, continuing Protonix and Carafate. Pain is 3/10 this morning. Pain still limited to epigastrium and right upper quadrant. No Melendrez's sign Melendrez sign negative. No guarding rigidity. We will get upright KUB, holding off GI consult at this point has pain is improving. Blood pressure low, starting midodrine 10 t.i.d., stat KUB portable, 12/30: Over weekend no procedures, GI recommended colonoscopy in hospital, we will follow up with GI today. Continuing Protonix. Continue IV antibiotics for possible gastroenteritis. Patient continues to complain of pain today awaiting in his 6. Over weekend patient noted to be bradycardic, EKG with T-wave flattening and low voltage, cardiology is consulted. We will get echo today. Patient has significant KEYONNA Monday creatinine 0.7 today creatinine 4.1, we will give bolus 1 L LR and repeat BMP. We will consider repeat CT abdomen. - keyonna likely from vanc/zosyn. stop abx. renal u/s. . for abd pain repeat CT ab. card to follow for bradycardia and flattening twaves. unclear cause of epigastric pain, gi to follow. 12/31 - doing well. still abd pain. epigastric 06/06. egd today. ct yest with possible cholecystitis. no melendrez. vs stable. will get RUQ u/s. nephro onboard giving ivf and low dose dopa for vanc nephrotoxity keyonna. gay is in now. accurate io. cards think [place] from mido which is now stopped. dec abx to ceftriaxone and flagyl. 01/01: egd yesterday with showing only gastritis, no ulcers etc seen. cr continue worsen to 6, making some urine. continue accurate i/o. gay inserted. this am pt to get kidney bx per nephrology. continue low dose dopa and bicarb gtt, appreciate nephrology following. asymptomatic bradycardia. BP better, off midodrine. 01/02: Creatinine reaching plateau, delta rise of creatinine is decreasing. Went from 6.2-6.6 today. Nephrology following, only with the bicarb drip now, dopamine is off. Keeping antibiotics only ceftriaxone Flagyl. Zosyn is off vanc is off. Patient today complaining of diarrhea and bleeding and fecal incontinence? , hemoglobin looks stable went from 14.3-13.2, we will keep a close eye on that. Patient says she has vaginal bleed, early menses onset? , we will continue to follow creatinine daily. 01/03: Delta Creatinine even lower today, hoping for plateaued for tomorrow. Creatinine go from 6.6-6.75. We will stop Carafate, stopping antibiotics. Patient is losing IV easily, we will get PICC line nurse to put in a durable IV access. Continuing IV bicarb drips per nephrology. We will start Florastor since patient's has been giving multiple antibiotics. And continue Pepcid IV 20 b.i.d.. Ultrasound yesterday with no significant findings in the uterus, likely menstrual bleed. Diarrhea is improving,? From Carafate, started Florastor. 01/04,.: Creatinine is finally decreasing 6.72 6.4 today. But BUN slight rise to 41. Still on bicarb drip and Lasix 80 IV daily, nephrology following, great urine output. We will continue management per Nephrology suggestions, continue Pepcid 20 IV b.i.d. for gastritis. Her pain is improving. Holding off Carafate, she had diarrhea. Continues having menstruation cycle. Hemoglobin and platelets were stable in normal range. Nephrology stopping Lasix. Diagnosis: Gastroenteritis, infectious etiology likely keyonna due to vancomycin nephrotoxicity Acute gastritis , s/p upper endoscopy 12/31/24 PUD possible Intractable abdominal pain with nausea and vomiting Leukocytosis unclear etiology Rule out sepsis History of epilepsy Plan: For pain use Tylenol, [place], morphine Start pepcid Carafate suspension 1 g p.o. twice daily b.i.d. Continue other home medications EKG prn off midodrine sp EGD. outpatient anti-acids Med surge Full code Plan discussed with: Patient, Other My Orders Orders - LEVY HOOVER MD Procedure Category Date Status Time Florastor (S. PHA 01/04/25 In Process Boulardii) (Florastor) 10:00 Hydrocodone-Acet PHA 01/03/25 In Process 5/325mg Tab ([place] 17:45 Hydromorphone PHA 01/03/25 In Process Injection (Dilaudid 17:45 Date of Service: Jan 04, 2025 Billing Provider: LEVY HOOVER MD Common Visit Codes: [id number] INP/OBS CARE(HIGH) LEVY HOOVER MD Jan 04, 2025 08:45
[2025-01-04] MEDS: FLORASTOR (S. BOULARDII) 250 MG CAP PO SCH (10:00)
--- NOTE | 2025-01-04 11:08 | DVHPN2 ---
Progress Note Date Seen: Jan 04, 2025 Medical Necessity Reason Pt with a Central, PICC or Fol: No Subjective Patient reports: No new complaints Other Systems: Patient seen and examined by myself today in follow-up Objective vital signs Vital Sign Date Time Temp Pulse Resp B/P (MAP) Pulse Ox O2 Delivery O2 Flow Rate FiO2 01/04/25 09:06 97.9 54 20 102/60 (74) 96 97.9 01/04/25 07:30 Room Air* 0 21 Total Intake and Output 01/03/25 01/03/25 01/04/25 15:00 23:00 07:00 Intake Total 50 ml 2850 ml 1500 ml Output Total 1575 ml 1200 ml Balance 50 ml 1275 ml 300 ml medications Current Medications Medications Dose Ordered Sig/Sacha Route Start Time Stop Time Status Last Admin Dose Admin Ondansetron HCl 4 mg Q4HP PRN IV 12/25/24 09:45 01/03/25 22:58 4 MG Acetaminophen 650 mg Q6HP PRN PO 12/25/24 09:45 01/03/25 13:43 650 MG Patient Own Medication 200 mg HS PO 12/26/24 22:00 01/03/25 21:22 200 MG Sucralfate 1 gm BID@0600,2200 PO 12/26/24 22:00 01/03/25 21:21 1 GM Diphenhydramine HCl 50 mg Q6HP PRN PO 12/27/24 14:00 12/30/24 01:20 50 MG Lorazepam 1 mg Q5MINP PRN IV 12/30/24 07:00 12/31/24 02:37 1 MG Pantoprazole Sodium 40 mg BID IV 12/30/24 22:00 UNV Famotidine 20 mg EOD IV 12/30/24 22:00 01/03/25 10:19 20 MG Ceftriaxone Sodium 50 ml @ 100 mls/hr DAILY@09 IV 12/31/24 09:30 01/04/25 10:38 100 MLS/HR Ergocalciferol 50,000 unit Q7D PO 12/31/24 10:30 12/31/24 11:14 50,000 UNIT Sodium Bicarbonate 50 ml/ Sodium Chloride 1,050 ml @ 100 mls/hr [id number] IV 01/01/25 09:30 01/04/25 01:41 100 MLS/HR Alprazolam 0.5 mg Q6HPRN PRN PO 01/01/25 13:45 01/04/25 01:51 0.5 MG Levetiracetam 2,000 mg HS PO 01/01/25 22:00 01/03/25 21:22 2,000 MG Saccharomyces Boulardii 250 mg DAILY PO 01/04/25 10:00 Acetaminophen/ Hydrocodone Bitart 1 tab Q4HPRN PRN PO 01/03/25 17:45 01/03/25 21:23 1 TAB Hydromorphone HCl 0.5 mg Q4HPRN PRN IV 01/03/25 17:45 Examination: LUNGS:Normal, CVS:Normal, MSK:Normal laboratory and microbiology Laboratory Tests 01/04/25 05:46 01/03/25 04:30 Test 01/04/25 05:46 Range/Units Serum Glucose 85 74-106 mg/dL Microbiology Date/Time Source Procedure Growth Status 12/28/24 18:41 Abdomen Gram Stain - Final Complete 12/28/24 18:41 Abdomen Wound Culture - Final Complete 12/27/24 11:31 Blood Blood Culture - Final NO GROWTH AFTER 5 DAYS OF INCUBATION. 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 Vancomycin toxicity Low C4 rule out immune complex glomerulonephritis ALYSHA is negative Gastritis/duodenitis status post EGD and biopsy Bilateral non obstructing kidney stones Microhematuria Metabolic acidosis Bradycardia Hypokalemia Vitamin-D deficiency REC: Kidney function slightly improving today Increased urine output KCL replacement Lawton's catheter Strict I&O's Discontinue vancomycin IVF 1/2 NS with sodium bicarb 50 mEq/L @ 100 cc/hr Status post Kidney biopsy 01/01, Prelim biopsy result show vancomycin tubular cast consistent with acute tubular necrosis DC furosemide Ergocalciferol 73837 units p.o. q.week Renal diet GI consult Cardiology consult Will continue to follow closely and assess daily for the need for hemodialysis Plan discussed with: Patient Dietary Evaluation Review Recommendations by RD: Dietary education by RD Comments: 1.Advance to cardiac diet when medically feasible 2.Encourage optimal PO intake 3.Refer to outpatient RD for weight management 4.Follow-up with gastroenterology and neurology 5.Continue to monitor I&O, labs, and skin integrity Expected Outcomes/Goals: 1.appetite and labs to improve 2.diet to advance 3.gradual wt loss 4.f/u in 3-5 days CARLTON PARHAM MD Jan 04, 2025 11:08
--- NOTE | 2025-01-04 13:42 | DVHPN2 ---
Progress Note Date Seen: Jan 04, 2025 Resident Creating Document: JHAnkushJDEXTER Oden RESIDENT Medical Necessity Reason Pt with a Central, PICC or Fol: No Subjective Review of Systems Patient was sleeping comfortably Denies any acute complaints Tolerating diet well Abdominal pain reportedly has improved Kidney function, creatinine plated Objective vital signs Vital Sign Date Time Temp Pulse Resp B/P (MAP) Pulse Ox O2 Delivery O2 Flow Rate FiO2 01/04/25 12:21 98.0 55 20 129/63 (85) 96 98.0 01/04/25 07:30 Room Air* 0 21 Total Intake and Output 01/03/25 01/03/25 01/04/25 14:59 22:59 06:59 Intake Total 50 ml 2850 ml 1500 ml Output Total 1575 ml 1200 ml Balance 50 ml 1275 ml 300 ml medications Current Medications Medications Dose Ordered Sig/Sacha Route Start Time Stop Time Status Last Admin Dose Admin Ondansetron HCl 4 mg Q4HP PRN IV 12/25/24 09:45 01/03/25 22:58 4 MG Acetaminophen 650 mg Q6HP PRN PO 12/25/24 09:45 01/03/25 13:43 650 MG Patient Own Medication 200 mg HS PO 12/26/24 22:00 01/03/25 21:22 200 MG Sucralfate 1 gm BID@0600,2200 PO 12/26/24 22:00 01/03/25 21:21 1 GM Diphenhydramine HCl 50 mg Q6HP PRN PO 12/27/24 14:00 12/30/24 01:20 50 MG Lorazepam 1 mg Q5MINP PRN IV 12/30/24 07:00 12/31/24 02:37 1 MG Pantoprazole Sodium 40 mg BID IV 12/30/24 22:00 UNV Famotidine 20 mg EOD IV 12/30/24 22:00 01/03/25 10:19 20 MG Ceftriaxone Sodium 50 ml @ 100 mls/hr DAILY@09 IV 12/31/24 09:30 01/04/25 10:38 100 MLS/HR Ergocalciferol 50,000 unit Q7D PO 12/31/24 10:30 12/31/24 11:14 50,000 UNIT Sodium Bicarbonate 50 ml/ Sodium Chloride 1,050 ml @ 100 mls/hr [id number] IV 01/01/25 09:30 01/04/25 01:41 100 MLS/HR Alprazolam 0.5 mg Q6HPRN PRN PO 01/01/25 13:45 01/04/25 01:51 0.5 MG Levetiracetam 2,000 mg HS PO 01/01/25 22:00 01/03/25 21:22 2,000 MG Saccharomyces Boulardii 250 mg DAILY PO 01/04/25 10:00 Acetaminophen/ Hydrocodone Bitart 1 tab Q4HPRN PRN PO 01/03/25 17:45 01/03/25 21:23 1 TAB Hydromorphone HCl 0.5 mg Q4HPRN PRN IV 01/03/25 17:45 Examination Gen - no pallor, no scleral icterus Skin - Patients skin is warm and dry. HEENT - normocephalic, atraumatic, dry mucous membranes. Neck - supple, no lymphadenopathy Pulmonary - B/L equal breath sounds cardiovascular - regular S1,S2 heard GI - soft abdomen with tenderness to palpation in the right upper quadrant in the epigastric region. Bowel sounds normoactive. Neurological - Patient is alert and oriented x4, following command laboratory and microbiology Laboratory Tests 01/04/25 05:46 01/03/25 04:30 Test 01/04/25 05:46 Range/Units Serum Glucose 85 74-106 mg/dL Microbiology Date/Time Source Procedure Growth Status 12/28/24 18:41 Abdomen Gram Stain - Final Complete 12/28/24 18:41 Abdomen Wound Culture - Final Complete 12/27/24 11:31 Blood Blood Culture - Final NO GROWTH AFTER 5 DAYS OF INCUBATION. Complete 12/25/24 06:43 Voided Urine Urine Culture - Final Complete Problem List/Assessment/Plan Problem List/Assessment/Plan Vancomycin adverse reaction ARF (acute renal failure) Epigastric pain Gastritis Plan Patient is on famotidine, Protonix discontinued Carafate b.i.d. Prelim kidney biopsy results showed vancomycin tubular casts consistent with ATN Continue on renal diet Plan discussed with Dr. Villatoro Plan discussed with: Patient Dietary Evaluation Review Recommendations by RD: Dietary education by RD Comments: 1.Advance to cardiac diet when medically feasible 2.Encourage optimal PO intake 3.Refer to outpatient RD for weight management 4.Follow-up with gastroenterology and neurology 5.Continue to monitor I&O, labs, and skin integrity Expected Outcomes/Goals: 1.appetite and labs to improve 2.diet to advance 3.gradual wt loss 4.f/u in 3-5 days DEXTER WEBB RESIDENT Jan 04, 2025 13:42
--- NOTE | 2025-01-04 23:24 | DVHPN2 ---
Progress Note - Dictate Date Seen: Jan 04, 2025 Medical Necessity Reason Pt with a Central, PICC or Fol: No Subjective Patient was seen and evaluated in follow up. Patient is resting in bed. She is tolerating diet. Abdominal and back pain are improving. BUN 41, Fingernail Sculpturer 6.49. Telemetry reviewed. vital signs Vital Sign Date Time Temp Pulse Resp B/P (MAP) Pulse Ox O2 Delivery O2 Flow Rate FiO2 01/04/25 21:00 98.1 52 20 134/59 (84) 93 98.1 01/04/25 20:00 Room Air* 0 21 Total Intake and Output 01/03/25 01/03/25 01/04/25 15:00 23:00 07:00 Intake Total 50 ml 2850 ml 1500 ml Output Total 1575 ml 1200 ml Balance 50 ml 1275 ml 300 ml medications Current Medications Medications Dose Ordered Sig/Sacha Route Start Time Stop Time Status Last Admin Dose Admin Ondansetron HCl 4 mg Q4HP PRN IV 12/25/24 09:45 01/04/25 18:00 4 MG Acetaminophen 650 mg Q6HP PRN PO 12/25/24 09:45 01/03/25 13:43 650 MG Patient Own Medication 200 mg HS PO 12/26/24 22:00 01/04/25 21:23 200 MG Sucralfate 1 gm BID@0600,2200 PO 12/26/24 22:00 01/03/25 21:21 1 GM Diphenhydramine HCl 50 mg Q6HP PRN PO 12/27/24 14:00 12/30/24 01:20 50 MG Lorazepam 1 mg Q5MINP PRN IV 12/30/24 07:00 12/31/24 02:37 1 MG Pantoprazole Sodium 40 mg BID IV 12/30/24 22:00 UNV Famotidine 20 mg EOD IV 12/30/24 22:00 01/03/25 10:19 20 MG Ceftriaxone Sodium 50 ml @ 100 mls/hr DAILY@09 IV 12/31/24 09:30 01/04/25 10:38 100 MLS/HR Ergocalciferol 50,000 unit Q7D PO 12/31/24 10:30 12/31/24 11:14 50,000 UNIT Sodium Bicarbonate 50 ml/ Sodium Chloride 1,050 ml @ 100 mls/hr [id number] IV 01/01/25 09:30 01/04/25 13:54 100 MLS/HR Alprazolam 0.5 mg Q6HPRN PRN PO 01/01/25 13:45 01/04/25 01:51 0.5 MG Levetiracetam 2,000 mg HS PO 01/01/25 22:00 01/04/25 21:24 2,000 MG Saccharomyces Boulardii 250 mg DAILY PO 01/04/25 10:00 Acetaminophen/ Hydrocodone Bitart 1 tab Q4HPRN PRN PO 01/03/25 17:45 01/04/25 18:00 1 TAB Hydromorphone HCl 0.5 mg Q4HPRN PRN IV 01/03/25 17:45 objective GENERAL: Alert and oriented x 3. No acute distress. EYES: PERRL, EOMI. Anicteric. HENT: Moist mucous membranes. LUNGS: Clear to auscultation bilaterally. CARDIOVASCULAR: Regular rate and rhythm. ABDOMEN: Soft, non-tender and non-distended. EXTREMITIES: No edema. NEUROLOGIC: No focal neurological deficits. SKIN: Warm, dry. laboratory and microbiology Laboratory Tests 01/04/25 05:46 01/03/25 04:30 Test 01/04/25 05:46 Range/Units Serum Glucose 85 74-106 mg/dL Problem List Bradycardia, likely secondary to Midodrine temporal correlation with initiation and resolution after discontinuation. Sepsis (improving) likely intra-abdominal source. Acute kidney injury- ATN due to vancomycin toxicity. Seizure disorder stable on current antiepileptic regimen. Assessment/Plan Continued all current supportive medical care. Tylenol for pain management. IV antibiotics as ordered. Diuretics with Lasix. Additional plan as per the hospital course. Dietary Evaluation Review Recommendations by RD: Dietary education by RD Comments: 1.Advance to cardiac diet when medically feasible 2.Encourage optimal PO intake 3.Refer to outpatient RD for weight management 4.Follow-up with gastroenterology and neurology 5.Continue to monitor I&O, labs, and skin integrity Expected Outcomes/Goals: 1.appetite and labs to improve 2.diet to advance 3.gradual wt loss 4.f/u in 3-5 days Plan discussed with: Patient JENNIFER SNELL MD Jan 04, 2025 23:24
[2025-01-05] VITALS (8 sets, daily range): BP systolic 110–144; BP diastolic 62–76; PULSE 48–60; RESP 18–20; TEMP 97.7–98.5; O2SAT 92–97
[2025-01-05 09:56] LABS: Alanine Aminotransferase 21 U/L (7-40); Albumin 3.4 g/dL (3.2-4.8); Alkaline Phosphatase 87 U/L (46-116); Anion Gap 11 (5-15); BUN/Creatinine Ratio 5.0 (10.0-20.0); Carbon Dioxide 27 mmol/L (20-31); Chloride 101 mmol/L (98-107); Glucose 91 mg/dL (74-106); Potassium 3.8 mmol/L (3.5-5.1); Sodium 139 mmol/L (136-145); Total Protein 6.3 g/dL (5.7-8.2)
[2025-01-05 09:58] LABS: Bilirubin, Total 0.2 mg/dL (0.2-1.0); Blood Urea Nitrogen 30 mg/dL (9-23); Calcium 8.6 mg/dL (8.7-10.4)
--- NOTE | 2025-01-05 10:46 | DVHPN2 ---
Progress Note Date Seen: Jan 05, 2025 Medical Necessity Reason Pt with a Central, PICC or Fol: No Subjective Patient reports: No new complaints Other Systems: Patient seen and examined by myself today in follow-up Objective vital signs Vital Sign Date Time Temp Pulse Resp B/P (MAP) Pulse Ox O2 Delivery O2 Flow Rate FiO2 01/05/25 08:48 98.5 53 20 125/66 (85) 97 98.5 01/05/25 07:30 Room Air* 0 21 Total Intake and Output 01/04/25 01/04/25 01/05/25 15:00 23:00 07:00 Intake Total 50 ml 700 ml 2750 ml Output Total 1100 ml 1050 ml Balance 50 ml -400 ml 1700 ml medications Current Medications Medications Dose Ordered Sig/Sacha Route Start Time Stop Time Status Last Admin Dose Admin Ondansetron HCl 4 mg Q4HP PRN IV 12/25/24 09:45 01/05/25 05:03 4 MG Acetaminophen 650 mg Q6HP PRN PO 12/25/24 09:45 01/03/25 13:43 650 MG Patient Own Medication 200 mg HS PO 12/26/24 22:00 01/04/25 21:23 200 MG Sucralfate 1 gm BID@0600,2200 PO 12/26/24 22:00 01/03/25 21:21 1 GM Diphenhydramine HCl 50 mg Q6HP PRN PO 12/27/24 14:00 12/30/24 01:20 50 MG Lorazepam 1 mg Q5MINP PRN IV 12/30/24 07:00 12/31/24 02:37 1 MG Pantoprazole Sodium 40 mg BID IV 12/30/24 22:00 UNV Famotidine 20 mg EOD IV 12/30/24 22:00 01/05/25 08:20 20 MG Ceftriaxone Sodium 50 ml @ 100 mls/hr DAILY@09 IV 12/31/24 09:30 01/05/25 08:20 100 MLS/HR Ergocalciferol 50,000 unit Q7D PO 12/31/24 10:30 12/31/24 11:14 50,000 UNIT Sodium Bicarbonate 50 ml/ Sodium Chloride 1,050 ml @ 100 mls/hr [id number] IV 01/01/25 09:30 01/05/25 05:38 100 MLS/HR Alprazolam 0.5 mg Q6HPRN PRN PO 01/01/25 13:45 01/05/25 08:19 0.5 MG Levetiracetam 2,000 mg HS PO 01/01/25 22:00 01/04/25 21:24 2,000 MG Saccharomyces Boulardii 250 mg DAILY PO 01/04/25 10:00 Acetaminophen/ Hydrocodone Bitart 1 tab Q4HPRN PRN PO 01/03/25 17:45 01/05/25 05:04 1 TAB Hydromorphone HCl 0.5 mg Q4HPRN PRN IV 01/03/25 17:45 Examination: LUNGS:Normal, CVS:Normal, MSK:Normal laboratory and microbiology Laboratory Tests 01/05/25 08:58 01/03/25 04:30 Test 01/05/25 08:58 Range/Units Serum Glucose 91 74-106 mg/dL Microbiology Date/Time Source Procedure Growth Status 12/28/24 18:41 Abdomen Gram Stain - Final Complete 12/28/24 18:41 Abdomen Wound Culture - Final Complete 12/27/24 11:31 Blood Blood Culture - Final NO GROWTH AFTER 5 DAYS OF INCUBATION. 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 Vancomycin toxicity Low C4 rule out immune complex glomerulonephritis ALYSHA is negative Gastritis/duodenitis status post EGD and biopsy Bilateral non obstructing kidney stones Microhematuria Metabolic acidosis Bradycardia Hypokalemia Vitamin-D deficiency REC: Kidney function slowly continues to improve Increased urine output KCL replacement Lawton's catheter Strict I&O's Discontinue vancomycin DC IV fluids Status post Kidney biopsy 01/01, Prelim biopsy result show vancomycin tubular cast consistent with acute tubular necrosis, no evidence of immune complex disease DC furosemide Ergocalciferol 41109 units p.o. q.week Renal diet Will continue to follow Refer to my office two weeks after discharge for follow-up Plan discussed with: Patient Dietary Evaluation Review Recommendations by RD: Dietary education by RD Comments: 1.Advance to cardiac diet when medically feasible 2.Encourage optimal PO intake 3.Refer to outpatient RD for weight management 4.Follow-up with gastroenterology and neurology 5.Continue to monitor I&O, labs, and skin integrity Expected Outcomes/Goals: 1.appetite and labs to improve 2.diet to advance 3.gradual wt loss 4.f/u in 3-5 days CARLTON PARHAM MD Jan 05, 2025 10:46
--- NOTE | 2025-01-05 11:44 | DVHPN2 ---
Progress Note - Dictate Date Seen: Jan 05, 2025 Medical Necessity Reason Pt with a Central, PICC or Fol: No Subjective Patient was seen and evaluated in follow up. No overnight events. Patient denies any complaints. BUN 30, Deck Mechanic 5.99 Telemetry reviewed. vital signs Vital Sign Date Time Temp Pulse Resp B/P (MAP) Pulse Ox O2 Delivery O2 Flow Rate FiO2 01/05/25 08:48 98.5 53 20 125/66 (85) 97 98.5 01/05/25 07:30 Room Air* 0 21 Total Intake and Output 01/04/25 01/04/25 01/05/25 15:00 23:00 07:00 Intake Total 50 ml 700 ml 2750 ml Output Total 1100 ml 1050 ml Balance 50 ml -400 ml 1700 ml medications Current Medications Medications Dose Ordered Sig/Sacha Route Start Time Stop Time Status Last Admin Dose Admin Ondansetron HCl 4 mg Q4HP PRN IV 12/25/24 09:45 01/05/25 05:03 4 MG Acetaminophen 650 mg Q6HP PRN PO 12/25/24 09:45 01/03/25 13:43 650 MG Patient Own Medication 200 mg HS PO 12/26/24 22:00 01/04/25 21:23 200 MG Sucralfate 1 gm BID@0600,2200 PO 12/26/24 22:00 01/03/25 21:21 1 GM Diphenhydramine HCl 50 mg Q6HP PRN PO 12/27/24 14:00 12/30/24 01:20 50 MG Lorazepam 1 mg Q5MINP PRN IV 12/30/24 07:00 12/31/24 02:37 1 MG Pantoprazole Sodium 40 mg BID IV 12/30/24 22:00 UNV Famotidine 20 mg EOD IV 12/30/24 22:00 01/05/25 08:20 20 MG Ceftriaxone Sodium 50 ml @ 100 mls/hr DAILY@09 IV 12/31/24 09:30 01/05/25 08:20 100 MLS/HR Ergocalciferol 50,000 unit Q7D PO 12/31/24 10:30 12/31/24 11:14 50,000 UNIT Alprazolam 0.5 mg Q6HPRN PRN PO 01/01/25 13:45 01/05/25 08:19 0.5 MG Levetiracetam 2,000 mg HS PO 01/01/25 22:00 01/04/25 21:24 2,000 MG Saccharomyces Boulardii 250 mg DAILY PO 01/04/25 10:00 Acetaminophen/ Hydrocodone Bitart 1 tab Q4HPRN PRN PO 01/03/25 17:45 01/05/25 05:04 1 TAB Hydromorphone HCl 0.5 mg Q4HPRN PRN IV 01/03/25 17:45 objective GENERAL: Alert and oriented x 3. No acute distress. EYES: PERRL, EOMI. Anicteric. HENT: Moist mucous membranes. LUNGS: Clear to auscultation bilaterally. CARDIOVASCULAR: Regular rate and rhythm. ABDOMEN: Soft, non-tender and non-distended. EXTREMITIES: No edema. NEUROLOGIC: No focal neurological deficits. SKIN: Warm, dry. laboratory and microbiology Laboratory Tests 01/05/25 08:58 01/03/25 04:30 Test 01/05/25 08:58 Range/Units Serum Glucose 91 74-106 mg/dL Problem List Bradycardia, likely secondary to Midodrine temporal correlation with initiation and resolution after discontinuation. Sepsis (improving) likely intra-abdominal source. Acute kidney injury- ATN due to vancomycin toxicity. Seizure disorder stable on current antiepileptic regimen. Assessment/Plan Continued all current supportive medical care. Tylenol for pain management. IV antibiotics as ordered. Diuretics with Lasix. Additional plan as per the hospital course. Dietary Evaluation Review Recommendations by RD: Dietary education by RD Comments: 1.Advance to cardiac diet when medically feasible 2.Encourage optimal PO intake 3.Refer to outpatient RD for weight management 4.Follow-up with gastroenterology and neurology 5.Continue to monitor I&O, labs, and skin integrity Expected Outcomes/Goals: 1.appetite and labs to improve 2.diet to advance 3.gradual wt loss 4.f/u in 3-5 days Plan discussed with: Patient JENNIFER SNELL MD Jan 05, 2025 11:44
--- NOTE | 2025-01-05 12:34 | DVHPN2 ---
Reviewed: Care Plan, H&P, Labs, Medications, Previous Orders Changes from previous H/P or p: No Changes General: Per HPI Gastrointestinal: Nausea, Vomiting, Abdominal Pain Objective Vitals Vital Signs Date Time Temp Pulse Resp B/P (MAP) Pulse Ox O2 Delivery O2 Flow Rate FiO2 01/05/25 12:27 97.8 52 20 110/62 (78) 93 97.8 01/05/25 07:30 Room Air* 0 21 Intake/Output Intake and Output 01/05/25 07:00 Intake Total 3500 ml Output Total 2150 ml Balance 1350 ml Intake Oral 1900 ml IV Total 1600 ml Output Urine Total 2150 ml # Bowel Movements 2 Exam GEN: Healthy appearing, well-developed, NAD. HEENT: NC/AT; MMM. CV: RRR, no m/r/g. LUNGS: CTAB, no w/r/c. ABD: Epigastrium tender to palpation, normoactive bowel sounds, EXT: skin Warm, well perfused. no rashes. No clubbing, cyanosis, or edema. NEURO: Ambulating with no limitations. No focal deficits. General Appearance: Alert, Oriented X3, Cooperative, No acute distress HEENT: Atraumatic, PERRLA, EOMI, Mucous membr. moist/pink Neck: Supple Lungs: Clear to auscultation, Normal air movement Cardiovascular: Regular rate, Normal S1, Normal S2, No murmurs, Gallops, Rubs Abdomen: Normal bowel sounds, Soft, No tenderness Neuro: Cranial nerves 3-12 NL Psych/Mental Status: Mental status NL Medications Current Medications Medications Dose Ordered Sig/Sacha Route Start Time Stop Time Status Last Admin Dose Admin Ondansetron HCl 4 mg Q4HP PRN IV 12/25/24 09:45 01/05/25 05:03 4 MG Acetaminophen 650 mg Q6HP PRN PO 12/25/24 09:45 01/03/25 13:43 650 MG Patient Own Medication 200 mg HS PO 12/26/24 22:00 01/04/25 21:23 200 MG Sucralfate 1 gm BID@0600,2200 PO 12/26/24 22:00 01/03/25 21:21 1 GM Diphenhydramine HCl 50 mg Q6HP PRN PO 12/27/24 14:00 12/30/24 01:20 50 MG Lorazepam 1 mg Q5MINP PRN IV 12/30/24 07:00 12/31/24 02:37 1 MG Pantoprazole Sodium 40 mg BID IV 12/30/24 22:00 UNV Famotidine 20 mg EOD IV 12/30/24 22:00 01/05/25 08:20 20 MG Ceftriaxone Sodium 50 ml @ 100 mls/hr DAILY@09 IV 12/31/24 09:30 01/05/25 08:20 100 MLS/HR Ergocalciferol 50,000 unit Q7D PO 12/31/24 10:30 12/31/24 11:14 50,000 UNIT Alprazolam 0.5 mg Q6HPRN PRN PO 01/01/25 13:45 01/05/25 08:19 0.5 MG Levetiracetam 2,000 mg HS PO 01/01/25 22:00 01/04/25 21:24 2,000 MG Saccharomyces Boulardii 250 mg DAILY PO 01/04/25 10:00 Acetaminophen/ Hydrocodone Bitart 1 tab Q4HPRN PRN PO 01/03/25 17:45 01/05/25 05:04 1 TAB Hydromorphone HCl 0.5 mg Q4HPRN PRN IV 01/03/25 17:45 Laboratory Results Laboratory Tests 01/03/25 04:30 01/05/25 08:58 Chemistry Test 01/05/25 08:58 Albumin 3.4 g/dL (3.2-4.8) Calcium Level 8.6 mg/dL (8.7-10.4) L Total Protein 6.3 g/dL (5.7-8.2) LFT Test 01/05/25 08:58 Alanine Aminotransferase (ALT) 21 U/L (7-40) Alkaline Phosphatase 87 U/L (46-116) Aspartate Amino Transferase (AST) 24 U/L (13-40) Total Bilirubin 0.2 mg/dL (0.2-1.0) Urinalysis Test 12/25/24 06:43 12/27/24 20:40 12/31/24 09:04 Urine Amorphous Crystals Mod /hpf (None Seen) Urine Mucus Few (None Seen) Urine Test Negative (Negative) Urine Color Colorless (Yellow) Urine Clarity Clear (Clear) Urine pH 6.5 (5.0-9.0) Urine Specific [place] 1.009 (1.001-1.035) Urine Protein Negative (Negative) Urine Ketones Trace (Negative) Urine Blood 2+ /uL (Negative) H Urine Nitrite Negative (Negative) Urine Bilirubin Negative (Negative) Urine Urobilinogen Normal mg/dL (Negative) Urine Leukocyte Esterase Negative /uL (Negative) Urine RBC 70 /hpf (0 - 4) Urine Microscopic WBC 4 /HPF (0-5) Urine Squamous Epithelial Cells Few /hpf (<5) Urine Bacteria Few /hpf (None Seen) H Urine Creatinine 33.46 mg/dL (30.0-125.0) Urine Protein/Creatinine Ratio 0.52 Urine Sodium 126 mmol/L (40-220) Urine Glucose Normal mg/dL (Normal) Urine Total Protein 17.3 mg/dL (1-14) H Microbiology Microbiology Date/Time Source Procedure Growth Status 12/28/24 18:41 Abdomen Gram Stain - Final Complete 12/28/24 18:41 Abdomen Wound Culture - Final Complete 12/27/24 11:31 Blood Blood Culture - Final NO GROWTH AFTER 5 DAYS OF INCUBATION. Complete 12/25/24 06:43 Voided Urine Urine Culture - Final Complete Labs and/or images reviewed: Labs reviewed by me, Image(s) reviewed by me Assessment/Plan Assessment/Plan 49-year-old female with past medical history of epilepsy who presents to the ED with abdominal pain with nausea and vomiting, with complaints radiating to the back, reports that the pain is 8/10 dull and constant. She reports that she vomited multiple times with minimal relief, food contents and now yellow in color. Patient reports that she vomited over 10 times. Patient's [id number] Carmen at the bedside. Patient denies any recent trauma or injury, recent sick contacts, recent travels, recent ingestion of spoiled food, chest pain, shortness of breath, fever, chills, lightheadedness, weakness, dizziness, diarrhea, urinary symptoms. 12/26: Patient has started having abdominal pain then started having nausea and vomiting, there was no diarrhea. Later the pain also started radiating to the back. Patient's lipase is mildly elevated. She does not take any weight loss pills,. CT was done showing cholelithiasis some nonobstructive nephrolithiasis, but no other acute processes, hepatic steatosis. Patient also had leukocytosis with left shift neutrophilia. We will start patient on ceftriaxone Flagyl for considerable possible gastroenteritis. Start Protonix IV 40, with Carafate 1 gram b.i.d.,. Continue slow IV fluids. Blood pressure low but apparently this is chronic. We will try fluid bolus. Otherwise continue antiemetics and prn pain medications, avoiding any NSAIDs., for pain we are doing Tylenol, [place], morphine, avoiding Toradol for possible PUD.. Urine . Full liquid diet. EKG. 12/27. EKG was unconcerning. Urine negative, awaiting Toradol still,. Continuing IV antibiotics, continuing Protonix and Carafate. Pain is 3/10 this morning. Pain still limited to epigastrium and right upper quadrant. No Melendrez's sign Melendrez sign negative. No guarding rigidity. We will get upright KUB, holding off GI consult at this point has pain is improving. Blood pressure low, starting midodrine 10 t.i.d., stat KUB portable, 12/30: Over weekend no procedures, GI recommended colonoscopy in hospital, we will follow up with GI today. Continuing Protonix. Continue IV antibiotics for possible gastroenteritis. Patient continues to complain of pain today awaiting in his 6. Over weekend patient noted to be bradycardic, EKG with T-wave flattening and low voltage, cardiology is consulted. We will get echo today. Patient has significant KEYONNA Monday creatinine 0.7 today creatinine 4.1, we will give bolus 1 L LR and repeat BMP. We will consider repeat CT abdomen. - keyonna likely from vanc/zosyn. stop abx. renal u/s. . for abd pain repeat CT ab. card to follow for bradycardia and flattening twaves. unclear cause of epigastric pain, gi to follow. 12/31 - doing well. still abd pain. epigastric 06/06. egd today. ct yest with possible cholecystitis. no melendrez. vs stable. will get RUQ u/s. nephro onboard giving ivf and low dose dopa for vanc nephrotoxity keyonna. gay is in now. accurate io. cards think [place] from mido which is now stopped. dec abx to ceftriaxone and flagyl. 01/01: egd yesterday with showing only gastritis, no ulcers etc seen. cr continue worsen to 6, making some urine. continue accurate i/o. gay inserted. this am pt to get kidney bx per nephrology. continue low dose dopa and bicarb gtt, appreciate nephrology following. asymptomatic bradycardia. BP better, off midodrine. 01/02: Creatinine reaching plateau, delta rise of creatinine is decreasing. Went from 6.2-6.6 today. Nephrology following, only with the bicarb drip now, dopamine is off. Keeping antibiotics only ceftriaxone Flagyl. Zosyn is off vanc is off. Patient today complaining of diarrhea and bleeding and fecal incontinence? , hemoglobin looks stable went from 14.3-13.2, we will keep a close eye on that. Patient says she has vaginal bleed, early menses onset? , we will continue to follow creatinine daily. 01/03: Delta Creatinine even lower today, hoping for plateaued for tomorrow. Creatinine go from 6.6-6.75. We will stop Carafate, stopping antibiotics. Patient is losing IV easily, we will get PICC line nurse to put in a durable IV access. Continuing IV bicarb drips per nephrology. We will start Florastor since patient's has been giving multiple antibiotics. And continue Pepcid IV 20 b.i.d.. Ultrasound yesterday with no significant findings in the uterus, likely menstrual bleed. Diarrhea is improving,? From Carafate, started Florastor. 01/04,.: Creatinine is finally decreasing 6.72 6.4 today. But BUN slight rise to 41. Still on bicarb drip and Lasix 80 IV daily, nephrology following, great urine output. We will continue management per Nephrology suggestions, continue Pepcid 20 IV b.i.d. for gastritis. Her pain is improving. Holding off Carafate, she had diarrhea. Continues having menstruation cycle. Hemoglobin and platelets were stable in normal range. Nephrology stopping Lasix. 01/05: Creatinine decreasing again 6.4 down to 5.9. BUN also decreasing, continues to make good urine output without Lasix. Continuing bicarb drip defer to Nephrology. Abdominal pain comes and goes likely the gastritis continuing Pepcid 20 IV b.i.d.. Continue present management, likely discharge tomorrow RS soon as patient is cleared by Nephrology. We will enter care consult today as patient wants to set up PCP. Diagnosis: Gastroenteritis, infectious etiology likely keyonna due to vancomycin nephrotoxicity Acute gastritis , s/p upper endoscopy 12/31/24 PUD possible Intractable abdominal pain with nausea and vomiting Leukocytosis unclear etiology Rule out sepsis History of epilepsy Plan: For pain use Tylenol, [place], morphine Start pepcid Carafate suspension 1 g p.o. twice daily b.i.d. Continue other home medications EKG prn off midodrine sp EGD. outpatient anti-acids Med surge Full code Plan discussed with: Patient Date of Service: Jan 05, 2025 Billing Provider: LEVY HOOVER MD Common Visit Codes: 47128-[id number] INP/OBS CARE(HIGH) LEVY HOOVER MD Jan 05, 2025 12:34
--- NOTE | 2025-01-05 14:42 | DVHPN2 ---
Progress Note - Dictate Date Seen: Jan 05, 2025 Medical Necessity Reason Pt with a Central, PICC or Fol: No Subjective No new complaints, patient is sleeping comfortably Patient is tolerating diet; 2 bowel movements recorded Abdominal pain improved ; EGD mild gastritis Patient is S/P kidney biopsy yesterday Leukocytosis improving, creatinine trending down and kidney function improving ALYSHA negative; suspected Vancomycin toxicity based on kidney biopsy vital signs Vital Sign Date Time Temp Pulse Resp B/P (MAP) Pulse Ox O2 Delivery O2 Flow Rate FiO2 01/05/25 12:27 97.8 52 20 110/62 (78) 93 97.8 01/05/25 07:30 Room Air* 0 21 Total Intake and Output 01/04/25 01/04/25 01/05/25 15:00 23:00 07:00 Intake Total 50 ml 700 ml 2750 ml Output Total 1100 ml 1050 ml Balance 50 ml -400 ml 1700 ml medications Current Medications Medications Dose Ordered Sig/Sacha Route Start Time Stop Time Status Last Admin Dose Admin Ondansetron HCl 4 mg Q4HP PRN IV 12/25/24 09:45 01/05/25 05:03 4 MG Acetaminophen 650 mg Q6HP PRN PO 12/25/24 09:45 01/03/25 13:43 650 MG Patient Own Medication 200 mg HS PO 12/26/24 22:00 01/04/25 21:23 200 MG Sucralfate 1 gm BID@0600,2200 PO 12/26/24 22:00 01/03/25 21:21 1 GM Diphenhydramine HCl 50 mg Q6HP PRN PO 12/27/24 14:00 12/30/24 01:20 50 MG Lorazepam 1 mg Q5MINP PRN IV 12/30/24 07:00 12/31/24 02:37 1 MG Pantoprazole Sodium 40 mg BID IV 12/30/24 22:00 UNV Famotidine 20 mg EOD IV 12/30/24 22:00 01/05/25 08:20 20 MG Ceftriaxone Sodium 50 ml @ 100 mls/hr DAILY@09 IV 12/31/24 09:30 01/05/25 08:20 100 MLS/HR Ergocalciferol 50,000 unit Q7D PO 12/31/24 10:30 12/31/24 11:14 50,000 UNIT Alprazolam 0.5 mg Q6HPRN PRN PO 01/01/25 13:45 01/05/25 08:19 0.5 MG Levetiracetam 2,000 mg HS PO 01/01/25 22:00 01/04/25 21:24 2,000 MG Saccharomyces Boulardii 250 mg DAILY PO 01/04/25 10:00 Acetaminophen/ Hydrocodone Bitart 1 tab Q4HPRN PRN PO 01/03/25 17:45 01/05/25 05:04 1 TAB Hydromorphone HCl 0.5 mg Q4HPRN PRN IV 01/03/25 17:45 objective Gen - no pallor, no scleral icterus Skin - Patients skin is warm and dry. HEENT - normocephalic, atraumatic, dry mucous membranes. Neck - supple, no lymphadenopathy Pulmonary - B/L equal breath sounds cardiovascular - regular S1,S2 heard GI - soft abdomen with tenderness to palpation in the right upper quadrant in the epigastric region. Bowel sounds normoactive. Neurological - Patient is alert and oriented x4, following commands laboratory and microbiology Laboratory Tests 01/05/25 08:58 01/03/25 04:30 Test 01/05/25 08:58 Range/Units Serum Glucose 91 74-106 mg/dL Problems(with codes): (1) Vancomycin adverse reaction (2) ARF (acute renal failure) (3) Epigastric pain (4) Gastritis (5) Sepsis, unspecified organism Prognosis Plan Continue supportive care Continue to monitor labs Diet as tolerated Protonix 40 mg p.o. daily Carafate 1 g p.o. twice a day DC aspirin NSAIDs smoking alcohol Check pathology results on the endoscopy Dietary Evaluation Review Recommendations by RD: Dietary education by RD Comments: 1.Advance to cardiac diet when medically feasible 2.Encourage optimal PO intake 3.Refer to outpatient RD for weight management 4.Follow-up with gastroenterology and neurology 5.Continue to monitor I&O, labs, and skin integrity Expected Outcomes/Goals: 1.appetite and labs to improve 2.diet to advance 3.gradual wt loss 4.f/u in 3-5 days Plan discussed with: Other (Dr Crowajj) [place] GRIJALVA MD Jan 05, 2025 14:42
[2025-01-06] VITALS (8 sets, daily range): BP systolic 118–165; BP diastolic 67–86; PULSE 51–62; RESP 15–20; TEMP 97.9–98.6; O2SAT 93–96
[2025-01-06 05:28] LABS: Anion Gap 11 (5-15); Carbon Dioxide 25 mmol/L (20-31); Chloride 103 mmol/L (98-107); Sodium 139 mmol/L (136-145)
[2025-01-06 05:29] LABS: Calcium 8.8 mg/dL (8.7-10.4)
[2025-01-06 05:30] LABS: Potassium 3.3 mmol/L (3.5-5.1)
[2025-01-06 05:34] LABS: BUN/Creatinine Ratio 5.3 (10.0-20.0); Glucose 95 mg/dL (74-106)
[2025-01-06 05:36] LABS: Blood Urea Nitrogen 29 mg/dL (9-23)
--- NOTE | 2025-01-06 10:29 | DVHPN2 ---
Reviewed: Care Plan, H&P, Labs, Medications, Previous Orders Changes from previous H/P or p: No Changes General: Per HPI Gastrointestinal: Nausea, Vomiting, Abdominal Pain Objective Vitals Vital Signs Date Time Temp Pulse Resp B/P (MAP) Pulse Ox O2 Delivery O2 Flow Rate FiO2 01/06/25 09:00 98.1 51 15 130/67 (88) 93 98.1 01/06/25 08:00 Room Air* 0 21 Intake/Output Intake and Output 01/06/25 07:00 Intake Total 1355 ml Output Total 2850 ml Balance -1495 ml Intake Oral 1305 ml IV Total 50 ml Output Urine Total 2850 ml # Bowel Movements 2 Exam GEN: Healthy appearing, well-developed, NAD. HEENT: NC/AT; MMM. CV: RRR, no m/r/g. LUNGS: CTAB, no w/r/c. ABD: Epigastrium tender to palpation, normoactive bowel sounds, EXT: skin Warm, well perfused. no rashes. No clubbing, cyanosis, or edema. NEURO: Ambulating with no limitations. No focal deficits. General Appearance: Alert, Oriented X3, Cooperative, No acute distress HEENT: Atraumatic, PERRLA, EOMI, Mucous membr. moist/pink Neck: Supple Lungs: Clear to auscultation, Normal air movement Cardiovascular: Regular rate, Normal S1, Normal S2, No murmurs, Gallops, Rubs Abdomen: Normal bowel sounds, Soft, No tenderness Neuro: Cranial nerves 3-12 NL Psych/Mental Status: Mental status NL Medications Current Medications Medications Dose Ordered Sig/Sacha Route Start Time Stop Time Status Last Admin Dose Admin Ondansetron HCl 4 mg Q4HP PRN IV 12/25/24 09:45 01/06/25 09:00 4 MG Acetaminophen 650 mg Q6HP PRN PO 12/25/24 09:45 01/03/25 13:43 650 MG Patient Own Medication 200 mg HS PO 12/26/24 22:00 01/05/25 22:06 200 MG Sucralfate 1 gm BID@0600,2200 PO 12/26/24 22:00 01/03/25 21:21 1 GM Diphenhydramine HCl 50 mg Q6HP PRN PO 12/27/24 14:00 12/30/24 01:20 50 MG Lorazepam 1 mg Q5MINP PRN IV 12/30/24 07:00 12/31/24 02:37 1 MG Pantoprazole Sodium 40 mg BID IV 12/30/24 22:00 UNV Famotidine 20 mg EOD IV 12/30/24 22:00 01/05/25 08:20 20 MG Ceftriaxone Sodium 50 ml @ 100 mls/hr DAILY@09 IV 12/31/24 09:30 01/06/25 09:00 100 MLS/HR Ergocalciferol 50,000 unit Q7D PO 12/31/24 10:30 12/31/24 11:14 50,000 UNIT Alprazolam 0.5 mg Q6HPRN PRN PO 01/01/25 13:45 01/06/25 09:00 0.5 MG Levetiracetam 2,000 mg HS PO 01/01/25 22:00 01/05/25 22:06 2,000 MG Saccharomyces Boulardii 250 mg DAILY PO 01/04/25 10:00 Acetaminophen/ Hydrocodone Bitart 1 tab Q4HPRN PRN PO 01/03/25 17:45 01/05/25 05:04 1 TAB Hydromorphone HCl 0.5 mg Q4HPRN PRN IV 01/03/25 17:45 Laboratory Results Laboratory Tests 01/03/25 04:30 01/06/25 05:06 Chemistry Test 01/06/25 05:06 Calcium Level 8.8 mg/dL (8.7-10.4) Urinalysis Test 12/25/24 06:43 12/27/24 20:40 12/31/24 09:04 Urine Amorphous Crystals Mod /hpf (None Seen) Urine Mucus Few (None Seen) Urine Test Negative (Negative) Urine Color Colorless (Yellow) Urine Clarity Clear (Clear) Urine pH 6.5 (5.0-9.0) Urine Specific [place] 1.009 (1.001-1.035) Urine Protein Negative (Negative) Urine Ketones Trace (Negative) Urine Blood 2+ /uL (Negative) H Urine Nitrite Negative (Negative) Urine Bilirubin Negative (Negative) Urine Urobilinogen Normal mg/dL (Negative) Urine Leukocyte Esterase Negative /uL (Negative) Urine RBC 70 /hpf (0 - 4) Urine Microscopic WBC 4 /HPF (0-5) Urine Squamous Epithelial Cells Few /hpf (<5) Urine Bacteria Few /hpf (None Seen) H Urine Creatinine 33.46 mg/dL (30.0-125.0) Urine Protein/Creatinine Ratio 0.52 Urine Sodium 126 mmol/L (40-220) Urine Glucose Normal mg/dL (Normal) Urine Total Protein 17.3 mg/dL (1-14) H Microbiology Microbiology Date/Time Source Procedure Growth Status 12/28/24 18:41 Abdomen Gram Stain - Final Complete 12/28/24 18:41 Abdomen Wound Culture - Final Complete 12/27/24 11:31 Blood Blood Culture - Final NO GROWTH AFTER 5 DAYS OF INCUBATION. Complete 12/25/24 06:43 Voided Urine Urine Culture - Final Complete Labs and/or images reviewed: Labs reviewed by me, Image(s) reviewed by me Assessment/Plan Assessment/Plan 49-year-old female with past medical history of epilepsy who presents to the ED with abdominal pain with nausea and vomiting, with complaints radiating to the back, reports that the pain is 8/10 dull and constant. She reports that she vomited multiple times with minimal relief, food contents and now yellow in color. Patient reports that she vomited over 10 times. Patient's [id number] Carmen at the bedside. Patient denies any recent trauma or injury, recent sick contacts, recent travels, recent ingestion of spoiled food, chest pain, shortness of breath, fever, chills, lightheadedness, weakness, dizziness, diarrhea, urinary symptoms. 12/26: Patient has started having abdominal pain then started having nausea and vomiting, there was no diarrhea. Later the pain also started radiating to the back. Patient's lipase is mildly elevated. She does not take any weight loss pills,. CT was done showing cholelithiasis some nonobstructive nephrolithiasis, but no other acute processes, hepatic steatosis. Patient also had leukocytosis with left shift neutrophilia. We will start patient on ceftriaxone Flagyl for considerable possible gastroenteritis. Start Protonix IV 40, with Carafate 1 gram b.i.d.,. Continue slow IV fluids. Blood pressure low but apparently this is chronic. We will try fluid bolus. Otherwise continue antiemetics and prn pain medications, avoiding any NSAIDs., for pain we are doing Tylenol, Kensett, morphine, avoiding Toradol for possible PUD.. Urine . Full liquid diet. EKG. 12/27. EKG was unconcerning. Urine negative, awaiting Toradol still,. Continuing IV antibiotics, continuing Protonix and Carafate. Pain is 3/10 this morning. Pain still limited to epigastrium and right upper quadrant. No Melendrez's sign Melendrez sign negative. No guarding rigidity. We will get upright KUB, holding off GI consult at this point has pain is improving. Blood pressure low, starting midodrine 10 t.i.d., stat KUB portable, 12/30: Over weekend no procedures, GI recommended colonoscopy in hospital, we will follow up with GI today. Continuing Protonix. Continue IV antibiotics for possible gastroenteritis. Patient continues to complain of pain today awaiting in his 6. Over weekend patient noted to be bradycardic, EKG with T-wave flattening and low voltage, cardiology is consulted. We will get echo today. Patient has significant KEYONNA Monday creatinine 0.7 today creatinine 4.1, we will give bolus 1 L LR and repeat BMP. We will consider repeat CT abdomen. - keyonna likely from vanc/zosyn. stop abx. renal u/s. . for abd pain repeat CT ab. card to follow for bradycardia and flattening twaves. unclear cause of epigastric pain, gi to follow. 12/31 - doing well. still abd pain. epigastric 06/06. egd today. ct yest with possible cholecystitis. no melendrez. vs stable. will get RUQ u/s. nephro onboard giving ivf and low dose dopa for vanc nephrotoxity keyonna. gay is in now. accurate io. cards think [place] from mido which is now stopped. dec abx to ceftriaxone and flagyl. 01/01: egd yesterday with showing only gastritis, no ulcers etc seen. cr continue worsen to 6, making some urine. continue accurate i/o. gay inserted. this am pt to get kidney bx per nephrology. continue low dose dopa and bicarb gtt, appreciate nephrology following. asymptomatic bradycardia. BP better, off midodrine. 01/02: Creatinine reaching plateau, delta rise of creatinine is decreasing. Went from 6.2-6.6 today. Nephrology following, only with the bicarb drip now, dopamine is off. Keeping antibiotics only ceftriaxone Flagyl. Zosyn is off vanc is off. Patient today complaining of diarrhea and bleeding and fecal incontinence? , hemoglobin looks stable went from 14.3-13.2, we will keep a close eye on that. Patient says she has vaginal bleed, early menses onset? , we will continue to follow creatinine daily. 01/03: Delta Creatinine even lower today, hoping for plateaued for tomorrow. Creatinine go from 6.6-6.75. We will stop Carafate, stopping antibiotics. Patient is losing IV easily, we will get PICC line nurse to put in a durable IV access. Continuing IV bicarb drips per nephrology. We will start Florastor since patient's has been giving multiple antibiotics. And continue Pepcid IV 20 b.i.d.. Ultrasound yesterday with no significant findings in the uterus, likely menstrual bleed. Diarrhea is improving,? From Carafate, started Florastor. 01/04,.: Creatinine is finally decreasing 6.72 6.4 today. But BUN slight rise to 41. Still on bicarb drip and Lasix 80 IV daily, nephrology following, great urine output. We will continue management per Nephrology suggestions, continue Pepcid 20 IV b.i.d. for gastritis. Her pain is improving. Holding off Carafate, she had diarrhea. Continues having menstruation cycle. Hemoglobin and platelets were stable in normal range. Nephrology stopping Lasix. 01/05: Creatinine decreasing again 6.4 down to 5.9. BUN also decreasing, continues to make good urine output without Lasix. Continuing bicarb drip defer to Nephrology. Abdominal pain comes and goes likely the gastritis continuing Pepcid 20 IV b.i.d.. Continue present management, likely discharge tomorrow RS soon as patient is cleared by Nephrology. We will enter care consult today as patient wants to set up PCP. 01/06: Drips are off, good urine in Gay. We will remove Gay today. Creatinine coming down 5.9-5.5. BUN trending down but slightly elevated still. We will seek for Nephrology clearance today. Likely discharge today. Care consult to help patient is set up PCP today. Patient we will need follow up with Nephrology, PCP, with close monitoring creatinine outpatient.. Hydrate well. Continue Pepcid 20 p.o. twice daily for 1 month with refill. Continue other home medications. Patient to continue monitoring urine output/color and signs of volume overload at home. DC clinic 1 week. - nephrology wants to monitor for 1 more day. We will keep the tomorrow a.m.. Diagnosis: Gastroenteritis, infectious etiology likely keyonna due to vancomycin nephrotoxicity Acute gastritis , s/p upper endoscopy 12/31/24 PUD possible Intractable abdominal pain with nausea and vomiting Leukocytosis unclear etiology Rule out sepsis History of epilepsy Plan: For pain use Tylenol, Kensett, morphine Start pepcid Carafate suspension 1 g p.o. twice daily b.i.d. Continue other home medications EKG prn off midodrine sp EGD. outpatient anti-acids Med surge Full code Plan discussed with: Patient My Orders Orders - LEVY HOOVER MD Procedure Category Date Status Time Consult Care CONS 01/05/25 Transmitted Coordinator Date of Service: Jan 06, 2025 Billing Provider: LEVY HOOVER MD Common Visit Codes: [id number] INP/OBS CARE(HIGH) LEVY HOOVER MD Jan 06, 2025 10:29
--- NOTE | 2025-01-06 13:25 | DVHPN2 ---
Progress Note Date Seen: Jan 06, 2025 Medical Necessity Reason Pt with a Central, PICC or Fol: No Subjective Patient reports: No new complaints Review of Systems: Deferred Objective vital signs Vital Sign Date Time Temp Pulse Resp B/P (MAP) Pulse Ox O2 Delivery O2 Flow Rate FiO2 01/06/25 12:47 97.9 62 17 165/86 (112) 96 97.9 01/06/25 08:00 Room Air* 0 21 Total Intake and Output 01/05/25 01/05/25 01/06/25 15:00 23:00 07:00 Intake Total 50 ml 305 ml 1000 ml Output Total 1300 ml 1550 ml Balance 50 ml -995 ml -550 ml medications Current Medications Medications Dose Ordered Sig/Sacha Route Start Time Stop Time Status Last Admin Dose Admin Ondansetron HCl 4 mg Q4HP PRN IV 12/25/24 09:45 01/06/25 09:00 4 MG Acetaminophen 650 mg Q6HP PRN PO 12/25/24 09:45 01/03/25 13:43 650 MG Patient Own Medication 200 mg HS PO 12/26/24 22:00 01/05/25 22:06 200 MG Sucralfate 1 gm BID@0600,2200 PO 12/26/24 22:00 01/03/25 21:21 1 GM Diphenhydramine HCl 50 mg Q6HP PRN PO 12/27/24 14:00 12/30/24 01:20 50 MG Lorazepam 1 mg Q5MINP PRN IV 12/30/24 07:00 12/31/24 02:37 1 MG Pantoprazole Sodium 40 mg BID IV 12/30/24 22:00 UNV Famotidine 20 mg EOD IV 12/30/24 22:00 01/05/25 08:20 20 MG Ceftriaxone Sodium 50 ml @ 100 mls/hr DAILY@09 IV 12/31/24 09:30 01/06/25 09:00 100 MLS/HR Ergocalciferol 50,000 unit Q7D PO 12/31/24 10:30 12/31/24 11:14 50,000 UNIT Alprazolam 0.5 mg Q6HPRN PRN PO 01/01/25 13:45 01/06/25 09:00 0.5 MG Levetiracetam 2,000 mg HS PO 01/01/25 22:00 01/05/25 22:06 2,000 MG Saccharomyces Boulardii 250 mg DAILY PO 01/04/25 10:00 Acetaminophen/ Hydrocodone Bitart 1 tab Q4HPRN PRN PO 01/03/25 17:45 01/05/25 05:04 1 TAB Hydromorphone HCl 0.5 mg Q4HPRN PRN IV 01/03/25 17:45 Examination: GENERAL:Normal, HEENT:Normal, NECK:Normal, LUNGS:Normal, CVS:Normal, ABDOMEN:Normal, MSK:Normal, SKIN:Normal, NEURO:Normal, :Normal laboratory and microbiology Laboratory Tests 01/06/25 05:06 01/03/25 04:30 Test 01/06/25 05:06 Range/Units Serum Glucose 95 74-106 mg/dL Microbiology Date/Time Source Procedure Growth Status 12/28/24 18:41 Abdomen Gram Stain - Final Complete 12/28/24 18:41 Abdomen Wound Culture - Final Complete 12/27/24 11:31 Blood Blood Culture - Final NO GROWTH AFTER 5 DAYS OF INCUBATION. 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 q.week Renal diet Will continue to follow Plan discussed with: Patient Dietary Evaluation Review Recommendations by RD: Dietary education by RD Comments: 1.Advance to cardiac diet when medically feasible 2.Encourage optimal PO intake 3.Refer to outpatient RD for weight management 4.Follow-up with gastroenterology and neurology 5.Continue to monitor I&O, labs, and skin integrity Expected Outcomes/Goals: 1.appetite and labs to improve 2.diet to advance 3.gradual wt loss 4.f/u in 3-5 days TANNER PERES MD Jan 06, 2025 13:25
[2025-01-06] MEDS: POTASSIUM EFFERVESENT TAB 25 MEQ PO ONE (15:04)
--- NOTE | 2025-01-06 17:00 | DVHPN2 ---
Progress Note - Dictate Date Seen: Jan 06, 2025 Medical Necessity Reason Pt with a Central, PICC or Fol: No Subjective No new complaints, Pt is tolerating renal diet Patient is tolerating diet; 2 bowel movements recorded Abdominal pain improved ; EGD mild gastritis EGD biopsies were negative and there was no H.pylori infection Patient is S/P kidney biopsy yesterday Leukocytosis improving, creatinine trending down and kidney function improving ALYSHA negative; suspected Vancomycin toxicity based on kidney biopsy vital signs Vital Sign Date Time Temp Pulse Resp B/P (MAP) Pulse Ox O2 Delivery O2 Flow Rate FiO2 01/06/25 12:47 97.9 62 17 165/86 (112) 96 97.9 01/06/25 08:00 Room Air* 0 21 Total Intake and Output 01/05/25 01/05/25 01/06/25 15:00 23:00 07:00 Intake Total 50 ml 305 ml 1000 ml Output Total 1300 ml 1550 ml Balance 50 ml -995 ml -550 ml medications Current Medications Medications Dose Ordered Sig/Sacha Route Start Time Stop Time Status Last Admin Dose Admin Ondansetron HCl 4 mg Q4HP PRN IV 12/25/24 09:45 01/06/25 15:11 4 MG Acetaminophen 650 mg Q6HP PRN PO 12/25/24 09:45 01/03/25 13:43 650 MG Patient Own Medication 200 mg HS PO 12/26/24 22:00 01/05/25 22:06 200 MG Sucralfate 1 gm BID@0600,2200 PO 12/26/24 22:00 01/03/25 21:21 1 GM Diphenhydramine HCl 50 mg Q6HP PRN PO 12/27/24 14:00 12/30/24 01:20 50 MG Lorazepam 1 mg Q5MINP PRN IV 12/30/24 07:00 12/31/24 02:37 1 MG Pantoprazole Sodium 40 mg BID IV 12/30/24 22:00 UNV Famotidine 20 mg EOD IV 12/30/24 22:00 01/05/25 08:20 20 MG Ceftriaxone Sodium 50 ml @ 100 mls/hr DAILY@09 IV 12/31/24 09:30 01/06/25 09:00 100 MLS/HR Ergocalciferol 50,000 unit Q7D PO 12/31/24 10:30 11/4/25 11:14 50,000 UNIT Alprazolam 0.5 mg Q6HPRN PRN PO 01/01/25 13:45 01/06/25 09:00 0.5 MG Levetiracetam 2,000 mg HS PO 01/01/25 22:00 01/05/25 22:06 2,000 MG Saccharomyces Boulardii 250 mg DAILY PO 01/04/25 10:00 Acetaminophen/ Hydrocodone Bitart 1 tab Q4HPRN PRN PO 01/03/25 17:45 01/06/25 15:04 1 TAB Hydromorphone HCl 0.5 mg Q4HPRN PRN IV 01/03/25 17:45 objective Gen - no pallor, no scleral icterus Skin - Patients skin is warm and dry. HEENT - normocephalic, atraumatic, dry mucous membranes. Neck - supple, no lymphadenopathy Pulmonary - B/L equal breath sounds cardiovascular - regular S1,S2 heard GI - soft abdomen with tenderness to palpation in the right upper quadrant in the epigastric region. Bowel sounds normoactive. Neurological - Patient is alert and oriented x4, following commands laboratory and microbiology Laboratory Tests 01/06/25 05:06 01/03/25 04:30 Test 01/06/25 05:06 Range/Units Serum Glucose 95 74-106 mg/dL Problems(with codes): (1) Vancomycin adverse reaction (2) ARF (acute renal failure) (3) Epigastric pain (4) Gastritis Prognosis Plan Continue supportive care Protonix and Carafate Monitor labs Renal diet Nephrology is following EGD biopsies were negative and there was no H.pylori infection Dietary Evaluation Review Recommendations by RD: Dietary education by RD Comments: 1.Advance to cardiac diet when medically feasible 2.Encourage optimal PO intake 3.Refer to outpatient RD for weight management 4.Follow-up with gastroenterology and neurology 5.Continue to monitor I&O, labs, and skin integrity Expected Outcomes/Goals: 1.appetite and labs to improve 2.diet to advance 3.gradual wt loss 4.f/u in 3-5 days Plan discussed with: Patient INDIA GRIJALVA MD Jan 06, 2025 17:00
--- NOTE | 2025-01-07 | DVHPN2 ---
Progress Note - Dictate Date Seen: Jan 06, 2025 Medical Necessity Reason Pt with a Central, PICC or Fol: No Subjective Patient was seen and evaluated in follow up. Patient is resting in bed. She is tolerating diet. She reports having BMs. Abdominal pain is improving. K 3.3, BUN 29, Stock Dealer 5.49. Potassium was replaced. Telemetry reviewed. vital signs Vital Sign Date Time Temp Pulse Resp B/P (MAP) Pulse Ox O2 Delivery O2 Flow Rate FiO2 01/06/25 21:00 97.9 53 16 135/79 (97) 96 97.9 01/06/25 08:00 Room Air* 0 21 Total Intake and Output 01/05/25 01/05/25 01/06/25 15:00 23:00 07:00 Intake Total 50 ml 305 ml 1000 ml Output Total 1300 ml 1550 ml Balance 50 ml -995 ml -550 ml medications Current Medications Medications Dose Ordered Sig/Sacha Route Start Time Stop Time Status Last Admin Dose Admin Ondansetron HCl 4 mg Q4HP PRN IV 12/25/24 09:45 01/06/25 21:23 4 MG Acetaminophen 650 mg Q6HP PRN PO 12/25/24 09:45 01/03/25 13:43 650 MG Patient Own Medication 200 mg HS PO 12/26/24 22:00 01/06/25 21:11 200 MG Sucralfate 1 gm BID@0600,2200 PO 12/26/24 22:00 01/03/25 21:21 1 GM Diphenhydramine HCl 50 mg Q6HP PRN PO 12/27/24 14:00 12/30/24 01:20 50 MG Lorazepam 1 mg Q5MINP PRN IV 12/30/24 07:00 12/31/24 02:37 1 MG Pantoprazole Sodium 40 mg BID IV 12/30/24 22:00 UNV Famotidine 20 mg EOD IV 12/30/24 22:00 01/05/25 08:20 20 MG Ceftriaxone Sodium 50 ml @ 100 mls/hr DAILY@09 IV 12/31/24 09:30 01/06/25 09:00 100 MLS/HR Ergocalciferol 50,000 unit Q7D PO 12/31/24 10:30 12/31/24 11:14 50,000 UNIT Alprazolam 0.5 mg Q6HPRN PRN PO 01/01/25 13:45 01/06/25 21:23 0.5 MG Levetiracetam 2,000 mg HS PO 01/01/25 22:00 01/06/25 21:11 2,000 MG Saccharomyces Boulardii 250 mg DAILY PO 01/04/25 10:00 Acetaminophen/ Hydrocodone Bitart 1 tab Q4HPRN PRN PO 01/03/25 17:45 01/06/25 15:04 1 TAB Hydromorphone HCl 0.5 mg Q4HPRN PRN IV 01/03/25 17:45 objective GENERAL: Alert and oriented x 3. No acute distress. EYES: PERRL, EOMI. Anicteric. HENT: Moist mucous membranes. LUNGS: Clear to auscultation bilaterally. CARDIOVASCULAR: Regular rate and rhythm. ABDOMEN: Soft, non-tender and non-distended. EXTREMITIES: No edema. NEUROLOGIC: No focal neurological deficits. SKIN: Warm, dry. laboratory and microbiology Laboratory Tests 01/06/25 05:06 01/03/25 04:30 Test 01/06/25 05:06 Range/Units Serum Glucose 95 74-106 mg/dL Problem List Bradycardia, likely secondary to Midodrine temporal correlation with initiation and resolution after discontinuation. Sepsis (improving) likely intra-abdominal source. Acute kidney injury- ATN due to vancomycin toxicity. Seizure disorder stable on current antiepileptic regimen. Assessment/Plan Continued all current supportive medical care. Tylenol for pain management. IV antibiotics as ordered. Diuretics with Lasix. Additional plan as per the hospital course. Dietary Evaluation Review Recommendations by RD: Dietary education by RD Comments: 1.Advance to cardiac diet when medically feasible 2.Encourage optimal PO intake 3.Refer to outpatient RD for weight management 4.Follow-up with gastroenterology and neurology 5.Continue to monitor I&O, labs, and skin integrity Expected Outcomes/Goals: 1.appetite and labs to improve 2.diet to advance 3.gradual wt loss 4.f/u in 3-5 days Plan discussed with: Patient JENNIFER SNELL MD Jan 07, 2025 00:00
[2025-01-07 01:00] VITALS: BP 128/73; PULSE 55; RESP 16; TEMP 98.8; O2SAT 97
[2025-01-07 05:00] VITALS: BP 120/66; PULSE 59; RESP 16; TEMP 98.1; O2SAT 95
[2025-01-07 05:33] LABS: Anion Gap 13 (5-15); Carbon Dioxide 27 mmol/L (20-31); Chloride 100 mmol/L (98-107); Potassium 3.7 mmol/L (3.5-5.1); Sodium 140 mmol/L (136-145)
[2025-01-07 05:35] LABS: Calcium 9.1 mg/dL (8.7-10.4)
[2025-01-07 05:40] LABS: BUN/Creatinine Ratio 4.7 (10.0-20.0); Glucose 94 mg/dL (74-106)
[2025-01-07 05:42] LABS: Blood Urea Nitrogen 26 mg/dL (9-23)
[2025-01-07 08:00] VITALS: PULSE 78; RESP 18; O2SAT 95
[2025-01-07 09:00] VITALS: BP 106/58; PULSE 49; RESP 16; TEMP 97.9; O2SAT 93
[2025-01-07] MEDS: SODIUM CHLORIDE 0.9% 1,000 ML IV ONE (09:30)
[2025-01-07] MEDS: LACTATED RINGER'S 1,000 ML IV SCH (10:00)
[2025-01-07] MEDS: LACTATED RINGER'S 1,500 ML IV ONE (10:43)
[2025-01-07 11:32] LABS: Chloride 99 mmol/L (98-107); Potassium 4.3 mmol/L (3.5-5.1); Sodium 140 mmol/L (136-145)
[2025-01-07 11:33] LABS: Anion Gap 12 (5-15); Carbon Dioxide 29 mmol/L (20-31)
[2025-01-07 11:34] LABS: Calcium 9.5 mg/dL (8.7-10.4)
[2025-01-07 11:38] LABS: BUN/Creatinine Ratio 5.4 (10.0-20.0); Glucose 84 mg/dL (74-106)
[2025-01-07 11:39] LABS: Blood Urea Nitrogen 29 mg/dL (9-23)
[2025-01-07 13:00] VITALS: BP 115/63; PULSE 59; RESP 16; TEMP 98.6; O2SAT 96
--- NOTE | 2025-01-07 14:08 | DVHPN2 ---
Progress Note Date Seen: Jan 07, 2025 Medical Necessity Reason Pt with a Central, PICC or Fol: No Subjective Patient reports: No new complaints (Denies any uremic complaints) Review of Systems: HEENT:Normal, CVS:Normal, RESPIRATORY:Normal, GI:Normal, :Normal, MSK:Normal, NEURO:Normal Objective vital signs Vital Sign Date Time Temp Pulse Resp B/P (MAP) Pulse Ox O2 Delivery O2 Flow Rate FiO2 01/07/25 08:00 78 18 95 Room Air* 0 21 01/07/25 05:00 98.1 120/66 (84) 98.1 Total Intake and Output 01/06/25 01/06/25 01/07/25 15:00 23:00 07:00 Intake Total 50 ml 1100 ml 490 ml Output Total 950 ml Balance 50 ml 150 ml 490 ml medications Current Medications Medications Dose Ordered Sig/Sacha Route Start Time Stop Time Status Last Admin Dose Admin Ondansetron HCl 4 mg Q4HP PRN IV 12/25/24 09:45 01/07/25 12:16 4 MG Acetaminophen 650 mg Q6HP PRN PO 12/25/24 09:45 01/03/25 13:43 650 MG Patient Own Medication 200 mg HS PO 12/26/24 22:00 01/06/25 21:11 200 MG Sucralfate 1 gm BID@0600,2200 PO 12/26/24 22:00 01/03/25 21:21 1 GM Diphenhydramine HCl 50 mg Q6HP PRN PO 12/27/24 14:00 12/30/24 01:20 50 MG Lorazepam 1 mg Q5MINP PRN IV 12/30/24 07:00 12/31/24 02:37 1 MG Pantoprazole Sodium 40 mg BID IV 12/30/24 22:00 UNV Famotidine 20 mg EOD IV 12/30/24 22:00 01/07/25 10:26 20 MG Ceftriaxone Sodium 50 ml @ 100 mls/hr DAILY@09 IV 12/31/24 09:30 01/07/25 09:00 100 MLS/HR Ergocalciferol 50,000 unit Q7D PO 12/31/24 10:30 01/07/25 10:58 50,000 UNIT Alprazolam 0.5 mg Q6HPRN PRN PO 01/01/25 13:45 01/07/25 10:49 0.5 MG Levetiracetam 2,000 mg HS PO 01/01/25 22:00 01/06/25 21:11 2,000 MG Saccharomyces Boulardii 250 mg DAILY PO 01/04/25 10:00 01/07/25 10:26 250 MG Acetaminophen/ Hydrocodone Bitart 1 tab Q4HPRN PRN PO 01/03/25 17:45 01/06/25 15:04 1 TAB Hydromorphone HCl 0.5 mg Q4HPRN PRN IV 01/03/25 17:45 Lactated Ringer's 1,000 ml @ 100 mls/hr Q10H IV 01/07/25 10:00 Hold Examination: GENERAL:Normal, HEENT:Normal, NECK:Normal, LUNGS:Normal, CVS:Normal, ABDOMEN:Normal, MSK:Normal, SKIN:Normal, NEURO:Normal, :Normal laboratory and microbiology Laboratory Tests 01/07/25 10:50 01/03/25 04:30 Test 01/07/25 10:50 Range/Units Serum Glucose 84 74-106 mg/dL Microbiology Date/Time Source Procedure Growth Status 12/28/24 18:41 Abdomen Gram Stain - Final Complete 12/28/24 18:41 Abdomen Wound Culture - Final Complete 12/27/24 11:31 Blood Blood Culture - Final NO GROWTH AFTER 5 DAYS OF INCUBATION. 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 q.week Renal diet Will continue to follow Discussed with hospitalist Plan discussed with: Patient, Other My Orders My Orders Orders - TANNER PERES MD Procedure Category Date Status Time Sodium Chloride 0.9% PHA 01/07/25 In Process 09:30 Dietary Evaluation Review Recommendations by RD: Dietary education by RD Comments: 1.Advance to cardiac diet when medically feasible 2.Encourage optimal PO intake 3.Refer to outpatient RD for weight management 4.Follow-up with gastroenterology and neurology 5.Continue to monitor I&O, labs, and skin integrity Expected Outcomes/Goals: 1.appetite and labs to improve 2.diet to advance 3.gradual wt loss 4.f/u in 3-5 days TANNER PERES MD Jan 07, 2025 14:08
--- NOTE | 2025-01-07 14:59 | DVHDS2 ---
Discharge Summary Date of Admission Dec 25, 2024 at 09:33 Date of Discharge: Jan 07, 2025 Labs/Diagnostic Data: Laboratory Results Test 01/07/25 10:50 01/05/25 08:58 01/03/25 04:30 12/31/24 09:04 Sodium Level 140 mmol/L (136-145) Potassium Level 4.3 mmol/L (3.5-5.1) Chloride Level 99 mmol/L (98-107) Carbon Dioxide Level 29 mmol/L (20-31) Anion Gap 12 (5-15) Blood Urea Nitrogen 29 mg/dL (9-23) Creatinine 5.36 mg/dL (0.550-1.02) Glomerular Filtration Rate Calc 9 mL/min (>90) BUN/Creatinine Ratio 5.4 (10.0-20.0) Serum Glucose 84 mg/dL (74-106) Calcium Level 9.5 mg/dL (8.7-10.4) Total Bilirubin 0.2 mg/dL (0.2-1.0) Aspartate Amino Transferase (AST) 24 U/L (13-40) Alanine Aminotransferase (ALT) 21 U/L (7-40) Alkaline Phosphatase 87 U/L (46-116) Total Protein 6.3 g/dL (5.7-8.2) Albumin 3.4 g/dL (3.2-4.8) White Blood Count 11.7 10^3/uL (4.4-10.8) Red Blood Count 4.35 10^6/uL (4.0-5.20) Hemoglobin 13.6 g/dL (12.2-16.2) Hematocrit 39.8 % (36.0-46.0) Mean Corpuscular Volume 91.4 fL (80.0-100.0) Mean Corpuscular Hemoglobin 31.3 pg (28.0-32.0) Mean Corpuscular Hemoglobin Concent 34.2 g/dL (32.0-36.0) Red Cell Distribution Width 13.6 % (11.8-14.3) Platelet Count 318 10^3/uL (140-450) Mean Platelet Volume 7.1 fL (6.9-10.8) Neutrophils (%) (Auto) 69.3 % (37.0-80.0) Lymphocytes (%) (Auto) 18.0 % (10.0-50.0) Monocytes (%) (Auto) 10.6 % (0.0-12.0) Eosinophils (%) (Auto) 1.7 % (0.0-7.0) Basophils (%) (Auto) 0.4 % (0.0-2.0) Neutrophils # (Auto) 8.1 10 ^3/uL (1.6-8.6) Lymphocytes # (Auto) 2.1 10 ^3/uL (0.4-5.4) Monocytes # (Auto) 1.2 10 ^3/uL (0-1.3) Eosinophils # (Auto) 0.2 10 ^3/uL (0-0.8) Basophils # (Auto) 0 10 ^3/uL (0-0.2) Nucleated Red Blood Cells 0.0 % Urine Color Colorless (Yellow) Urine Clarity Clear (Clear) Urine pH 6.5 (5.0-9.0) Urine Specific [place] 1.009 (1.001-1.035) Urine Protein Negative (Negative) Urine Ketones Trace (Negative) Urine Blood 2+ /uL (Negative) Urine Nitrite Negative (Negative) Urine Bilirubin Negative (Negative) Urine Urobilinogen Normal mg/dL (Negative) Urine Leukocyte Esterase Negative /uL (Negative) Urine RBC 70 /hpf (0 - 4) Urine Microscopic WBC 4 /HPF (0-5) Urine Squamous Epithelial Cells Few /hpf (<5) Urine Bacteria Few /hpf (None Seen) Urine Creatinine 33.46 mg/dL (30.0-125.0) Urine Protein/Creatinine Ratio 0.52 Urine Sodium 126 mmol/L (40-220) Urine Glucose Normal mg/dL (Normal) Urine Total Protein 17.3 mg/dL (1-14) Urine Opiates Screen Neg (NEGATIVE) Urine Fentanyl Screen Neg (NEGATIVE) Urine Barbiturates Screen Neg (NEGATIVE) Urine Phencyclidine Screen Neg (NEGATIVE) Urine Amphetamines Screen Neg (NEGATIVE) Urine Benzodiazepines Screen Neg (NEGATIVE) Urine Cocaine Screen Neg (NEGATIVE) Urine Cannabinoids Screen Neg (NEGATIVE) Test 12/31/24 05:24 12/30/24 16:31 12/30/24 05:57 12/28/24 22:44 Prothrombin Time 10.6 sec (9.3-11.8) Prothrombin Time INR 1.00 (0.9-1.15) Activated Partial Thromboplast Time 29.0 SEC (24.5-34.5) Uric Acid 5.4 mg/dL (3.1-7.8) Phosphorus Level 3.7 mg/dL (2.4-5.1) Magnesium Level 2.1 mg/dL (1.6-2.6) Vitamin D 25-Hydroxy 12.3 ng/mL (30.0-100) Parathyroid Hormone (Intact) 94.4 pg/mL (18.4-80.1) Anti-Nuclear Antibody Screen Negative (Negative) Complement C3 90 mg/dL (82-167) Complement C4 11 mg/dL (12-38) B-Type Natriuretic Peptide 284.73 pg/mL (0-100) Random Vancomycin Level 22.3 ug/mL (5-10) Vancomycin Level Trough 30.4 ug/mL (5-10) Test 12/27/24 20:40 12/27/24 11:50 12/25/24 09:50 12/25/24 06:43 Urine Test Negative (Negative) Lactic Acid Level 1.0 mmol/L (0.4-2.0) Lipase 55 U/L (12-53) Urine Amorphous Crystals Mod /hpf (None Seen) Urine Mucus Few (None Seen) Other Laboratory Tests 01/07/25 10:50 01/03/25 04:30 Brief Hx & Hospital Course: 49-year-old female with past medical history of epilepsy who presents to the ED with abdominal pain with nausea and vomiting, with complaints radiating to the back, reports that the pain is 8/10 dull and constant. She reports that she vomited multiple times with minimal relief, food contents and now yellow in color. Patient reports that she vomited over 10 times. Patient's [id number] Carmen at the bedside. Patient denies any recent trauma or injury, recent sick contacts, recent travels, recent ingestion of spoiled food, chest pain, shortness of breath, fever, chills, lightheadedness, weakness, dizziness, diarrhea, urinary symptoms. 12/26: Patient has started having abdominal pain then started having nausea and vomiting, there was no diarrhea. Later the pain also started radiating to the back. Patient's lipase is mildly elevated. She does not take any weight loss pills,. CT was done showing cholelithiasis some nonobstructive nephrolithiasis, but no other acute processes, hepatic steatosis. Patient also had leukocytosis with left shift neutrophilia. We will start patient on ceftriaxone Flagyl for considerable possible gastroenteritis. Start Protonix IV 40, with Carafate 1 gram b.i.d.,. Continue slow IV fluids. Blood pressure low but apparently this is chronic. We will try fluid bolus. Otherwise continue antiemetics and prn pain medications, avoiding any NSAIDs., for pain we are doing Tylenol, [place], morphine, avoiding Toradol for possible PUD.. Urine . Full liquid diet. EKG. 12/27. EKG was unconcerning. Urine negative, awaiting Toradol still,. Continuing IV antibiotics, continuing Protonix and Carafate. Pain is 3/10 this morning. Pain still limited to epigastrium and right upper quadrant. No Melendrez's sign Melendrez sign negative. No guarding rigidity. We will get upright KUB, holding off GI consult at this point has pain is improving. Blood pressure low, starting midodrine 10 t.i.d., stat KUB portable, upgrading abx to vanc/zosyn. 12/30: Over weekend no procedures, GI recommended colonoscopy in hospital, we will follow up with GI today. Continuing Protonix. Continue IV antibiotics for possible gastroenteritis. Patient continues to complain of pain today awaiting in his 6. Over weekend patient noted to be bradycardic, EKG with T-wave flattening and low voltage, cardiology is consulted. We will get echo today. Patient has significant KEYONNA Monday creatinine 0.7 today creatinine 4.1, we will give bolus 1 L LR and repeat BMP. We will consider repeat CT abdomen. - keyonna likely from vanc/zosyn. stop abx. renal u/s. . for abd pain repeat CT ab. card to follow for bradycardia and flattening twaves. unclear cause of epigastric pain, gi to follow. 12/31 - doing well. still abd pain. epigastric 06/06. egd today. ct yest with possible cholecystitis. no melendrez. vs stable. will get RUQ u/s. nephro onboard giving ivf and low dose dopa for vanc nephrotoxity keyonna. gay is in now. accurate io. cards think [place] from mido which is now stopped. dec abx to ceftriaxone and flagyl. 01/01: egd yesterday with showing only gastritis, no ulcers etc seen. cr continue worsen to 6, making some urine. continue accurate i/o. gay inserted. this am pt to get kidney bx per nephrology. continue low dose dopa and bicarb gtt, appreciate nephrology following. asymptomatic bradycardia. BP better, off midodrine. 01/02: Creatinine reaching plateau, delta rise of creatinine is decreasing. Went from 6.2-6.6 today. Nephrology following, only with the bicarb drip now, dopamine is off. Keeping antibiotics only ceftriaxone Flagyl. Zosyn is off vanc is off. Patient today complaining of diarrhea and bleeding and fecal incontinence? , hemoglobin looks stable went from 14.3-13.2, we will keep a close eye on that. Patient says she has vaginal bleed, early menses onset? , we will continue to follow creatinine daily. 01/03: Delta Creatinine even lower today, hoping for plateaued for tomorrow. Creatinine go from 6.6-6.75. We will stop Carafate, stopping antibiotics. Patient is losing IV easily, we will get PICC line nurse to put in a durable IV access. Continuing IV bicarb drips per nephrology. We will start Florastor since patient's has been giving multiple antibiotics. And continue Pepcid IV 20 b.i.d.. Ultrasound yesterday with no significant findings in the uterus, likely menstrual bleed. Diarrhea is improving,? From Carafate, started Florastor. 01/04,.: Creatinine is finally decreasing 6.72 6.4 today. But BUN slight rise to 41. Still on bicarb drip and Lasix 80 IV daily, nephrology following, great urine output. We will continue management per Nephrology suggestions, continue Pepcid 20 IV b.i.d. for gastritis. Her pain is improving. Holding off Carafate, she had diarrhea. Continues having menstruation cycle. Hemoglobin and platelets were stable in normal range. Nephrology stopping Lasix. 01/05: Creatinine decreasing again 6.4 down to 5.9. BUN also decreasing, continues to make good urine output without Lasix. Continuing bicarb drip defer to Nephrology. Abdominal pain comes and goes likely the gastritis continuing Pepcid 20 IV b.i.d.. Continue present management, likely discharge tomorrow RS soon as patient is cleared by Nephrology. We will enter care consult today as patient wants to set up PCP. 01/06: Drips are off, good urine in Gay. We will remove Gay today. Creatinine coming down 5.9-5.5. BUN trending down but slightly elevated still. We will seek for Nephrology clearance today. Likely discharge today. Care consult to help patient is set up PCP today. Patient we will need follow up with Nephrology, PCP, with close monitoring creatinine outpatient.. Hydrate well. Continue Pepcid 20 p.o. twice daily for 1 month with refill. Continue other home medications. Patient to continue monitoring urine output/color and signs of volume overload at home. DC clinic 1 week. - nephrology wants to monitor for 1 more day. We will keep the tomorrow a.m.. 01/07: Given 1 L LR bolus creatinine continues to climb down to 5.3. Continues to make good urine. Cleared by Nephrology. Stable for discharge. Patient will need close follow up. Follow up with Nephrology 1 week. Follow up with DC clinic 2 days. Follow up with PCP Dr. connor one week. Continue to avoid any NSAIDs, hydrate well. Follow up with Cardiology. Return to ER if start having decreased urine output or if start feeling sensitive fatigue and/or diffuse body swelling. Diagnosis: Gastroenteritis, infectious etiology likely Acute gastritis , s/p upper endoscopy 12/31/24 keyonna due to vancomycin nephrotoxicity azotemia due to above Asymptomatic bradycardia PUD, ruled out Intractable abdominal pain with nausea and vomiting Leukocytosis unclear etiology Rule out sepsis History of epilepsy plan: - continue oral Pepcid 20 mg twice daily for 30 days - continue Carafate1 g tablet twice daily for 30 days -Continue home medications for seizures Keppra and zonisamide -Continue taking Xanax 0.5 Up to 4 times daily as needed -Follow up with Nephrology 1 week. -Follow up with DC clinic 2 days. -Follow up with PCP Dr. connor one week. Need to keep repeat BNP, close monitoring creatinine/kidney function -Follow up with GI to review pathology results from endoscopy EGD -Continue to avoid any NSAIDs, hydrate well. -[facility] medical records if need to access notes of hospital stay -Follow up with Cardiology. -Return to ER if start having decreased urine output or if start feeling sensitive fatigue and/or diffuse body swelling. Condition at Discharge: Fair Final Diagnosis/Problems List Gastroenteritis, infectious etiology likely Acute gastritis , s/p upper endoscopy 12/31/24 keyonna due to vancomycin nephrotoxicity azotemia due to above Asymptomatic bradycardia PUD, ruled out Intractable abdominal pain with nausea and vomiting Leukocytosis unclear etiology Rule out sepsis History of epilepsy Discharge Disposition: Home Discharge Instruct/Medications Scheduled Levetiracetam (Keppra Tablet), 2,000 MG PO HS, (Reported) Zonisamide (Zonisamide), 200 MG PO HS, (Reported) Discharge Statement: "Patient was advised to return to the ER or call 911 if any headaches, dizziness, shortness of breath, chest pain, abdominal pain, bleeding, fevers, or worsening of medical condition. Patient was counseled about treatment plan, medications, possible side effects, patientverbalized understanding. All questions were answered to the best of my ability. This discharge took greater then 30 minutes in planning, reviewing documentation, counseling the patient, and discussing with other team members." ASSESSMENT ASSESSMENT Assessment Date of Service: Jan 07, 2025 Billing Provider: LEVY HOOVER MD Common Visit Codes: 16581-FFB/OBS DISCH DAY >30min LEVY HOOVER MD Jan 07, 2025 14:59
[2025-01-07] MEDS ORDERED: SUCR1TAB31 PO (15:03)
[2025-01-07] MEDS ORDERED: FAMO20TA10 PO (15:03)
[2025-01-07] MEDS ORDERED: ALPR0.5T PO (15:03)
[2025-01-07 17:00] VITALS: BP 147/79; PULSE 72; RESP 16; TEMP 97.7; O2SAT 97
--- NOTE | 2025-01-07 17:41 | DVHPN2 ---
Progress Note - Dictate Date Seen: Jan 07, 2025 Medical Necessity Reason Pt with a Central, PICC or Fol: No Subjective Patient was seen and evaluated in follow up. No overnight events. Patient continues tolerating diet well. 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 Patient is cardiac stable for discharge. Telemetry reviewed. vital signs Vital Sign Date Time Temp Pulse Resp B/P (MAP) Pulse Ox O2 Delivery O2 Flow Rate FiO2 01/07/25 08:00 78 18 95 Room Air* 0 21 01/07/25 05:00 98.1 120/66 (84) 98.1 Total Intake and Output 01/06/25 01/06/25 01/07/25 15:00 23:00 07:00 Intake Total 50 ml 1100 ml 490 ml Output Total 950 ml Balance 50 ml 150 ml 490 ml medications Current Medications Medications Dose Ordered Sig/Sacha Route Start Time Stop Time Status Last Admin Dose Admin Ondansetron HCl 4 mg Q4HP PRN IV 12/25/24 09:45 01/07/25 12:16 4 MG Acetaminophen 650 mg Q6HP PRN PO 12/25/24 09:45 01/03/25 13:43 650 MG Patient Own Medication 200 mg HS PO 12/26/24 22:00 01/06/25 21:11 200 MG Sucralfate 1 gm BID@0600,2200 PO 12/26/24 22:00 01/03/25 21:21 1 GM Diphenhydramine HCl 50 mg Q6HP PRN PO 12/27/24 14:00 12/30/24 01:20 50 MG Lorazepam 1 mg Q5MINP PRN IV 12/30/24 07:00 12/31/24 02:37 1 MG Pantoprazole Sodium 40 mg BID IV 12/30/24 22:00 UNV Famotidine 20 mg EOD IV 12/30/24 22:00 01/07/25 10:26 20 MG Ceftriaxone Sodium 50 ml @ 100 mls/hr DAILY@09 IV 12/31/24 09:30 01/07/25 09:00 100 MLS/HR Ergocalciferol 50,000 unit Q7D PO 12/31/24 10:30 01/07/25 10:58 50,000 UNIT Alprazolam 0.5 mg Q6HPRN PRN PO 01/01/25 13:45 01/07/25 10:49 0.5 MG Levetiracetam 2,000 mg HS PO 01/01/25 22:00 01/06/25 21:11 2,000 MG Saccharomyces Boulardii 250 mg DAILY PO 01/04/25 10:00 01/07/25 10:26 250 MG Acetaminophen/ Hydrocodone Bitart 1 tab Q4HPRN PRN PO 01/03/25 17:45 01/06/25 15:04 1 TAB Hydromorphone HCl 0.5 mg Q4HPRN PRN IV 01/03/25 17:45 Lactated Ringer's 1,000 ml @ 100 mls/hr Q10H IV 01/07/25 10:00 Hold objective GENERAL: Alert and oriented x 3. No acute distress. EYES: PERRL, EOMI. Anicteric. HENT: Moist mucous membranes. LUNGS: Clear to auscultation bilaterally. CARDIOVASCULAR: Regular rate and rhythm. ABDOMEN: Soft, non-tender and non-distended. EXTREMITIES: No edema. NEUROLOGIC: No focal neurological deficits. SKIN: Warm, dry. laboratory and microbiology Laboratory Tests 01/07/25 10:50 01/03/25 04:30 Test 01/07/25 10:50 Range/Units Serum Glucose 84 74-106 mg/dL Problem List Bradycardia, likely secondary to Midodrine temporal correlation with initiation and resolution after discontinuation. Sepsis (improving) likely intra-abdominal source. Acute kidney injury- ATN due to vancomycin toxicity. Seizure disorder stable on current antiepileptic regimen. Assessment/Plan Continued all current supportive medical care. Dilaudid for pain management. IV antibiotics as ordered. Additional plan as per the hospital course. Dietary Evaluation Review Recommendations by RD: Dietary education by RD Comments: 1.Advance to cardiac diet when medically feasible 2.Encourage optimal PO intake 3.Refer to outpatient RD for weight management 4.Follow-up with gastroenterology and neurology 5.Continue to monitor I&O, labs, and skin integrity Expected Outcomes/Goals: 1.appetite and labs to improve 2.diet to advance 3.gradual wt loss 4.f/u in 3-5 days Plan discussed with: Patient JENNIFER SNELL MD Jan 07, 2025 13:31
--- NOTE | 2025-01-07 18:32 | DVHPN2 ---
Progress Note - Dictate Date Seen: Jan 07, 2025 Medical Necessity Reason Pt with a Central, PICC or Fol: No Subjective No new complaints, Pt is tolerating renal diet Patient is tolerating diet; 1 bowel movement recorded Abdominal pain improved ; EGD mild gastritis EGD biopsies were negative and there was no H.pylori infection Patient was notified of negative EGD biopsies Patient is S/P kidney biopsy showing vancomycin tubular gas Leukocytosis improving, creatinine trending down and kidney function improving ALYSHA negative; suspected Vancomycin toxicity based on kidney biopsy vital signs Vital Sign Date Time Temp Pulse Resp B/P (MAP) Pulse Ox O2 Delivery O2 Flow Rate FiO2 01/07/25 17:00 97.7 72 16 147/79 (101) 97 97.7 01/07/25 08:00 Room Air* 0 21 Total Intake and Output 01/06/25 01/06/25 01/07/25 15:00 23:00 07:00 Intake Total 50 ml 1100 ml 490 ml Output Total 950 ml Balance 50 ml 150 ml 490 ml medications Current Medications Medications Dose Ordered Sig/Sacha Route Start Time Stop Time Status Last Admin Dose Admin Ondansetron HCl 4 mg Q4HP PRN IV 12/25/24 09:45 01/07/25 12:16 4 MG Acetaminophen 650 mg Q6HP PRN PO 12/25/24 09:45 01/07/25 14:51 650 MG Patient Own Medication 200 mg HS PO 12/26/24 22:00 01/06/25 21:11 200 MG Sucralfate 1 gm BID@0600,2200 PO 12/26/24 22:00 01/03/25 21:21 1 GM Diphenhydramine HCl 50 mg Q6HP PRN PO 12/27/24 14:00 12/30/24 01:20 50 MG Lorazepam 1 mg Q5MINP PRN IV 12/30/24 07:00 12/31/24 02:37 1 MG Pantoprazole Sodium 40 mg BID IV 12/30/24 22:00 UNV Famotidine 20 mg EOD IV 12/30/24 22:00 01/07/25 10:26 20 MG Ceftriaxone Sodium 50 ml @ 100 mls/hr DAILY@09 IV 12/31/24 09:30 01/07/25 09:00 100 MLS/HR Ergocalciferol 50,000 unit Q7D PO 12/31/24 10:30 01/07/25 10:58 50,000 UNIT Alprazolam 0.5 mg Q6HPRN PRN PO 01/01/25 13:45 01/07/25 10:49 0.5 MG Levetiracetam 2,000 mg HS PO 01/01/25 22:00 01/06/25 21:11 2,000 MG Saccharomyces Boulardii 250 mg DAILY PO 01/04/25 10:00 01/07/25 10:26 250 MG Acetaminophen/ Hydrocodone Bitart 1 tab Q4HPRN PRN PO 01/03/25 17:45 01/06/25 15:04 1 TAB Hydromorphone HCl 0.5 mg Q4HPRN PRN IV 01/03/25 17:45 Lactated Ringer's 1,000 ml @ 100 mls/hr Q10H IV 01/07/25 10:00 Hold objective Gen - no pallor, no scleral icterus Skin - Patients skin is warm and dry. HEENT - normocephalic, atraumatic, dry mucous membranes. Neck - supple, no lymphadenopathy Pulmonary - B/L equal breath sounds cardiovascular - regular S1,S2 heard GI - soft abdomen with tenderness to palpation in the right upper quadrant in the epigastric region. Bowel sounds normoactive. Neurological - Patient is alert and oriented x4, following commands laboratory and microbiology Laboratory Tests 01/07/25 10:50 01/03/25 04:30 Test 01/07/25 10:50 Range/Units Serum Glucose 84 74-106 mg/dL Problems(with codes): (1) Vancomycin adverse reaction (2) ARF (acute renal failure) (3) Epigastric pain (4) Gastritis Prognosis Plan Continue supportive care Protonix and Carafate Monitor labs Renal diet Nephrology is following EGD biopsies were negative and there was no H.pylori infection Discharge planning is in progress, outpatient follow up with PCP and Nephrology Outpatient follow up with me when stable to discuss elective screening colonoscopy Dietary Evaluation Review Recommendations by RD: Dietary education by RD Comments: 1.Advance to cardiac diet when medically feasible 2.Encourage optimal PO intake 3.Refer to outpatient RD for weight management 4.Follow-up with gastroenterology and neurology 5.Continue to monitor I&O, labs, and skin integrity Expected Outcomes/Goals: 1.appetite and labs to improve 2.diet to advance 3.gradual wt loss 4.f/u in 3-5 days Plan discussed with: Patient, Other ( Jhajj) [place] GRIJALVA MD Jan 07, 2025 18:32
== END 2025-01-07 18:50 | disposition home or self-care (01) | DRG 871 ==
LOC: ER 05:08 → OVERFLOW 09:33 → EAST 10:37 → TELE-EAST 12-29 18:00
PROVIDERS: ADMIT Student in an Organized Health Care Education/Training Program; ATTEND Student in an Organized Health Care Education/Training Program
PROC: 0DB68ZX Excision of Stomach, Via Natural or Artificial Opening Endoscopic, Diagnostic (ICD-10-PCS; 2024-12-31)
PROC: 0DB98ZX Excision of Duodenum, Via Natural or Artificial Opening Endoscopic, Diagnostic (ICD-10-PCS; principal; 2024-12-31 14:34)
PROC: 0TB13ZX Excision of Left Kidney, Percutaneous Approach, Diagnostic (ICD-10-PCS; 2025-01-01)
DX: A41.9 Sepsis, unspecified organism (principal); N17.0 Acute kidney failure with tubular necrosis; E87.20 Acidosis, unspecified; K27.9 Peptic ulcer, site unspecified, unspecified as acute or chronic, without hemorrhage or perforation; G40.909 Epilepsy, unspecified, not intractable, without status epilepticus; K76.0 Fatty (change of) liver, not elsewhere classified; A09 Infectious gastroenteritis and colitis, unspecified; K29.00 Acute gastritis without bleeding; K59.00 Constipation, unspecified; K80.20 Calculus of gallbladder without cholecystitis without obstruction; N14.19 Nephropathy induced by other drugs, medicaments and biological substances; T36.8X5A Adverse effect of other systemic antibiotics, initial encounter; N20.0 Calculus of kidney; K82.8 Other specified diseases of gallbladder; E87.6 Hypokalemia; K29.80 Duodenitis without bleeding; N05.9 Unspecified nephritic syndrome with unspecified morphologic changes; E55.9 Vitamin D deficiency, unspecified; Z79.899 Other long term (current) drug therapy; Z83.3 Family history of diabetes mellitus; Z80.3 Family history of malignant neoplasm of breast; Z80.0 Family history of malignant neoplasm of digestive organs; Y92.89 Other specified places as the place of occurrence of the external cause
CPT/HCPCS: 36415; 50200; 71045; 74018; 74176; 76705; 76775; 76856; 76942; 80048; 80053; 80202; 80307; 81001; 81025; 82247; 82306; 82565; 82570; 83605; 83690; 83735; 83880; 83970; 84075; 84100; 84156; 84300; 84450; 84460; 84550; 85025; 85610; 85730; 86038; 86160; 86850; 86900; 86901; 87040; 87081; 87086; 87205; 93005; 93306; 99291; 99292; G0378; J1885; J2003; J2250; J2405; J2470; J2543; J2704; J3480; J3490

== ENCOUNTER 2025-01-13 11:24 | Outpatient (CLI) | payer OTHER ==
[~2025-01-13 11:24] MED LIST: ALPR0.5T PO; FAMO20TA10 PO; KEP500T PO; SUCR1TAB31 PO; ZONI100C43 PO
[2025-01-13 12:28] LABS: Chloride 105 mmol/L (98-107); Potassium 4.5 mmol/L (3.5-5.1); Sodium 139 mmol/L (136-145)
[2025-01-13 12:29] LABS: Anion Gap 11 (5-15); Carbon Dioxide 23 mmol/L (20-31)
[2025-01-13 12:30] LABS: Calcium 10.3 mg/dL (8.7-10.4)
[2025-01-13 12:35] LABS: BUN/Creatinine Ratio 12.7 (10.0-20.0); Glucose 92 mg/dL (74-106)
[2025-01-13 12:36] LABS: Blood Urea Nitrogen 27 mg/dL (9-23)
== END 2025-01-13 17:00 | disposition home or self-care (01) ==
LOC: LAB 11:24
PROVIDERS: ATTEND Internal Medicine
DX: N17.9 Acute kidney failure, unspecified (principal)
CPT/HCPCS: 36415; 80048